=== PATIENT | female | born 1960 | race Caucasian/White ===

== ENCOUNTER 2020-09-15 21:30 | Emergency (ER) | payer BC ==
[2020-09-15 21:46] VITALS: BP 144/67; PULSE 66
[2020-09-15] MEDS ORDERED: Metoclopramide 10 MG/2 ML SDV IVPUSH ONE (21:54)
[2020-09-15] MEDS ORDERED: diphenhydrAMINE 50 MG/ML SDV IVPUSH ONE (21:55)
[2020-09-15] MEDS ORDERED: HYDROmorphone 0.5 MG/0.5 ML Syringe IVPUSH ONE (21:55)
--- NOTE | 2020-09-15 21:58 | EDM.PDOC ---
ED HPI GENERAL MEDICAL PROBLEM - General Chief Complaint: Gastrointestinal Problem Stated Complaint: unable to keep water down has stage 2 cancer Time Seen by Provider: 09/15/20 21:52 Source of Information: Reports: Patient, Family (spouse and daughter) History Limitations: Reports: No Limitations - History of Present Illness INITIAL COMMENTS - FREE TEXT/NARRATIVE: 59-year-old female presents to the ED in the accompaniment of her spouse and her daughter. 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 This was diagnosed in December 2019. Patient has been receiving immunosuppressant therapy on a monthly basis. She has been receiving dexamethasone 2 mg once daily every morning for brain swelling. She took all 3 of her normal medications this morning and threw up about 20 minutes later. She did take medicine on empty stomach. However since that time she has been in a unable to keep down any medication since. She has a significant headache which she relates is 7 8 out of 10 on the right hemicranial aspect of her head. She states she is not prone to headaches. Denies any hematemesis. Last emesis was about an hour before coming to the ED and was about 15 mils of bilious emesis. No associated fever or chills. No diarrhea. Onset: Today, Sudden Onset Date: 09/15/20 Onset Time: 08:00 Duration: Hour(s):, Constant, Intermittent Location: Reports: Head, Abdomen (Intermittent nausea vomiting intermittent nausea and vomiting of bilious material.) Quality: Reports: Ache (Persistent right hemicranial headache), Throbbing, Other Severity: Moderate (Pulsating headache.) Improves with: Reports: None ( 7-8 out of 10.) Worsens with: Reports: Other Context: Denies: Activity (Worse with movement and standing up.), Exercise, Lifting, Sick Contact, Trauma, Other Associated Symptoms: Reports: Malaise, Nausea/Vomiting, Weakness. 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: Other (see below) (Nothing will stay down.) Frontal Headache Pain Score (Numeric/FACES): 9 - Related Data Allergies Allergy/AdvReac Type Severity Reaction Status Date / Time hydrocodone Allergy Nausea Verified 09/15/20 21:44 Home Meds: Home Meds Levothyroxine Sodium [Synthroid] 100 mcg PO DAILY 06/12/14 [History] Escitalopram Oxalate 5 mg PO DAILY 09/15/20 [History] dexAMETHasone [Dexamethasone] 2 mg PO DAILY 09/15/20 [History] Past Medical History Psychiatric History: Reports: Anxiety (Taking Escitalopram for this.) Oncologic (Cancer) History: Reports: Malignant Melanoma Social & Family History - Tobacco Use Tobacco Use Status *Q: Never Tobacco User Second Hand Smoke Exposure: No - Caffeine Use Caffeine Use: Reports: None - Recreational Drug Use Recreational Drug Use: No - Living Situation & Occupation Living situation: Reports: Occupation: Employed ED ROS GENERAL - Review of Systems Review Of Systems: See Below Constitutional: Reports: Malaise, Weakness, Fatigue, Decreased Appetite, Weight Loss. Denies: Fever, Chills HEENT: Reports: Glasses Respiratory: Reports: No Symptoms Cardiovascular: Reports: No Symptoms Endocrine: Reports: Fatigue GI/Abdominal: Reports: Decreased Appetite, Nausea, Vomiting (Intractable nausea and vomiting all day today. Bilious emesis without blood.) : Reports: No Symptoms Musculoskeletal: Reports: No Symptoms Skin: Reports: No Symptoms Neurological: Reports: Headache (Bad headache today right hemicranial head. Known to have brain tumor i.e. malignant melanoma invading the parietal and temporal lobe apparently. This was diagnosed in December 2019), Difficulty Walking (Loses her balance at times.), Weakness. Denies: Confusion, Dizziness, Paresthesia, Pre-Existing Deficit, Seizure, Syncope, Tingling Psychiatric: Reports: Anxiety Hematologic/Lymphatic: Reports: No Symptoms Immunologic: Reports: No Symptoms ED EXAM, GI/ABD - Physical Exam Exam: See Below Exam Limited By: No Limitations General Appearance: Alert, WD/WN, Moderate Distress, Other (She is quite happy having her family answer questions. She appears to be having a significant headache at this time. She answers questions appropriately however and has no dysarthria. Temperature was 36.4 degrees. Heart rate 66 and sinus respiratory is 18 with O2 sats 100% on room air. BP 1 446) Eyes: Bilateral: Normal Appearance (No scleral icterus or blepharal pallor.) Throat/Mouth: Normal Inspection, Normal Lips, Normal Oropharynx, Other (Tongue is dry and coated white. No oral candidiasis.) Head: Atraumatic, Normocephalic Neck: Normal Inspection, Supple, Non-Tender, Full Range of Motion. No: Carotid Bruit, Lymphadenopathy (L), Lymphadenopathy (R) Respiratory/Chest: No Respiratory Distress, Lungs Clear, Normal Breath Sounds, No Accessory Muscle Use Cardiovascular: Normal Peripheral Pulses, Regular Rate, Rhythm, No Edema, No Gallop, No Murmur, No Rub GI/Abdominal Exam: Normal Bowel Sounds, Soft, Non-Tender, No Abnormal Bruit, No Mass Back Exam: Normal Inspection, Full Range of Motion. No: CVA Tenderness (L), CVA Tenderness (R) Extremities: Normal Inspection, Normal Range of Motion, Non-Tender, No Pedal Edema Neurological: Alert, Oriented, CN II-XII Intact, Normal Cognition Psychiatric: Flat Affect Skin Exam: Warm, Dry, Intact, Normal Color, No Rash Course - Vital Signs Last Recorded V/S: Last Vital Signs Temp 36.4 C 09/15/20 21:45 Pulse 66 09/15/20 21:45 Resp 18 09/15/20 21:45 BP 144/67 H 09/15/20 21:45 Pulse Ox 100 09/15/20 21:45 - Orders/Labs/Meds Orders: Active Orders 24 hr Category Date Time Status Head wo Cont [CT] Stat Exams 09/15/20 21:52 Taken CORONAVIRUS COVID-19 EYAD [MOLEC] Stat Lab 09/16/20 00:25 Received URINALYSIS W/MICROSCOPIC [UA W/MICROSCOPIC] [URIN] Stat Lab 09/15/20 21:56 Ordered Dextrose 5%-0.9% NaCl [Dextrose 5%-Normal Saline] 1,000 Med 09/15/20 22:00 Active ml IV ASDIRECTED Medication Orders Dextrose/Sodium Chloride (Dextrose 5%-Normal Saline) 1,000 mls @ 500 mls/hr IV ASDIRECTED LEÓN Last Admin: 09/15/20 22:11 Dose: 500 mls/hr Documented by: PAMELA Labs: Laboratory Tests 09/15/20 09/15/20 Range/Units 21:50 21:50 WBC 10.41 H (3.98-10.04) K/mm3 RBC 4.81 (3.98-5.22) M/mm3 Hgb 13.1 (11.2-15.7) gm/dl Hct 40.4 (34.1-44.9) % MCV 84.0 D (79.4-94.8) fl MCH 27.2 (25.6-32.2) pg MCHC 32.4 (32.2-35.5) g/dl RDW Std Deviation 48.6 H (36.4-46.3) fL Plt Count 350 D (182-369) K/mm3 MPV 10.3 (9.4-12.3) fl Neut % (Auto) 90.1 H (34.0-71.1) % Lymph % (Auto) 5.3 L (19.3-51.7) % Baxter % (Auto) 4.2 L (4.7-12.5) % Eos % (Auto) 0 L (0.7-5.8) Baso % (Auto) 0.1 (0.1-1.2) % Neut # (Auto) 9.38 H (1.56-6.13) K/mm3 Lymph # (Auto) 0.55 L (1.18-3.74) K/mm3 Baxter # (Auto) 0.44 H (0.24-0.36) K/mm3 Eos # (Auto) 0.00 L (0.04-0.36) K/mm3 Baso # (Auto) 0.01 (0.01-0.08) K/mm3 Manual Slide Review Abnormal smear Sodium 138 (136-145) mEq/L Potassium 3.6 (3.5-5.1) mEq/L Chloride 99 (98-107) mEq/L Carbon Dioxide 22 (21-32) mEq/L Anion Gap 20.6 H (5-15) BUN 17 (7-18) mg/dL Creatinine 0.8 (0.55-1.02) mg/dL Est Cr Clr Drug Dosing TNP Estimated GFR (MDRD) > 60 (>60) mL/min BUN/Creatinine Ratio 21.3 H (14-18) Glucose 149 H (70-99) mg/dL Calcium 9.4 (8.5-10.1) mg/dL Total Bilirubin 0.6 (0.2-1.0) mg/dL AST 13 L (15-37) U/L ALT 21 (14-59) U/L Alkaline Phosphatase 51 (46-116) U/L C-Reactive Protein 0.5 (<1.0) mg/dL Total Protein 7.3 (6.4-8.2) g/dl Albumin 3.8 (3.4-5.0) g/dl Globulin 3.5 gm/dL Albumin/Globulin Ratio 1.1 (1-2) Lipase 144 (73-393) U/L Meds: Medications Generic Name Dose Route Start Last Admin Trade Name Freq PRN Reason Stop Dose Admin Dextrose/Sodium Chloride 1,000 mls @ 500 mls/hr 09/15/20 22:00 09/15/20 22:11 Dextrose 5%-Normal Saline IV 500 mls/hr ASDIRECTED LEÓN Administration Discontinued Medications Generic Name Dose Route Start Last Admin Trade Name Freq PRN Reason Stop Dose Admin Dexamethasone 12 mg 09/15/20 23:37 09/15/20 23:44 Dexamethasone 4 Mg/Ml 5 Ml Mdv IV 09/15/20 23:38 12 mg ONETIME ONE Administration Diphenhydramine HCl 12.5 mg 09/15/20 21:55 09/15/20 22:14 Diphenhydramine 50 Mg/Ml Sdv IVPUSH 09/15/20 21:56 12.5 mg ONETIME ONE Administration Hydromorphone HCl 0.5 mg 09/15/20 21:55 09/15/20 22:15 Hydromorphone 0.5 Mg/0.5 Ml Syringe IVPUSH 09/15/20 21:56 0.5 mg ONETIME ONE Administration Metoclopramide HCl 7.5 mg 09/15/20 21:54 09/15/20 22:12 Metoclopramide 10 Mg/2 Ml Sdv IVPUSH 09/15/20 21:55 7.5 mg ONETIME ONE Administration - Radiology Interpretation Free Text/Narrative:: 59-year-old female presents to the ED with a diffuse right hemicranial headache which is unusual for her. She took her 3 medications i.e. levothyroxine Escitalopram and dexamethasone 2 mg strength this morning around 0800 hrs. and promptly vomited them up within 15 minutes. Since then she has been vomiting throughout the entire day. Headache has been slowly getting worse. She is known to have malignant melanoma tumors to the right hemibrain involving the parietal and temporal lobe according to her . She is currently receiving immunosuppressant therapy on a monthly basis. She usually does not suffer from headaches. History is concerning therefore for increased intracranial pressure or bleed into tumor causing headache and nausea and vomiting. She will have CT head performed without IV contrast. Routine labs will be performed. IV will be D5 normal saline at 500 mils an hour. She was given Reglan 7.5 mg IV with Be nadryl 12.5 mg IV to prevent any dystonic reaction from the Escitalopram. She will also be given Dilaudid 0.5 mg IV for headache relief. - Re-Assessments/Exams Free Text/Narrative Re-Assessment/Exam: 09/15/20 22:38 CT scan of the brain without contrast has been performed. There is a large hyperdense mass involving the posterior medial left parietal lobe. This is in the region of the splenium of the corpus callosum. This hyperdense mass is approximately 3.5 x 2.9 cm in the AP diameter and transversely. Cephalocaudal this mass is 3.5 cm. There is severe surrounding edema. The edema affects a large portion of the left centrum semiovale. There is a left to right midline shift approximately 7 to 8 mm. There is also a midline collection with no fluid level measuring 2.2 x 1.6 cm. This is in the region of the pineal gland. Possibility of a metastatic focus to this region cannot be excluded. The fluid level could represent a hemorrhagic process. Hyperdense 6 x 6 mm collection is seen anterior to the left parietal mass which could represent a small focal parenchymal hemorrhage. This is best seen on series 2, image 28. Chronic appearing subdural fluid collection below the craniotomy flap along the posterior parietal region on the right side measuring 7 mm in maximal thickness. This appears to be representing chronic subdural collection related to the previous surgery. There is no ventriculomegaly. There is loss of the normal convexities and sulci suggestive of intracranial hypertension. Evidence of previous right sided posterior parietal craniotomy. No sinus air-fluid levels. Visualized mastoid air cells are well aerated. White count is mildly elevated at 10.41 remembering that she has been on steroids daily 2 mg of dexamethasone. Differential shows 90.1% neutrophils. Patient is afebrile. Hemoglobin is 13.1 with hematocrit of 40.4. Platelet count 350,000. Sodium was 138 with a potassium of 3.6. Chloride 99 with a bicarb of 22. Anion gap is elevated at 20.6 suggesting volume depletion. BUN was 17 with a creatinine of 0.8 and a GFR greater than 60. BUN/creatinine ratio minimally elevated at 21.3. Glucose elevated at 149. Calcium 9.4 total bilirubin 0.6 liver function otherwise normal. C-reactive protein 0.5 total protein 7.3 with an albumin fraction of 3.8 lipase 144 09/15/20 23:43 I was able to speak with Dr. Gutierrez oncologist that looks after this patient through the 1 call nurse at [facility] in [place]. He suggests dexamethasone 12 mg IV at this time which I will order. I then spoke with Dr. Nicole on-call hospitalist and he will perform the admission to the hospital. CODE STATUS needs to be established on this lady. They indicated th at MRI identified a left brain tumor in June of this year and she did receive 5 days of high density focused radiation to the tumor at that time. So therefore the left-sided brain tumor is not new. It is unfortunately enlarging and creating a great deal of edema and mass-effect with midline shift. 09/16/20 00:36 ground ambulance is now available to transfer the patient to [facility] in [place]. CODE STATUS was discussed with the family and the patient and she prefers to remain CODE STATUS level 1. 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 Gutierrez and radiation therapy as well. Sepsis Event Note (ED) - Evaluation Sepsis Screening Result: No Definite Risk - Focused Exam Vital Signs: Vital Signs Temp Pulse Resp BP Pulse Ox 09/15/20 21:45 36.4 C 66 18 144/67 H 100 - My Orders Last 24 Hours: My Active Orders 09/15/20 21:52 Head wo Cont [CT] Stat 09/15/20 21:56 URINALYSIS W/MICROSCOPIC [UA W/MICROSCOPIC] [URIN] Stat 09/15/20 22:00 Dextrose 5%-0.9% NaCl [Dextrose 5%-Normal Saline] 1,000 ml IV ASDIRECTED 09/16/20 00:25 CORONAVIRUS COVID-19 EYAD [MOLEC] Stat - Assessment/Plan Last 24 Hours: My Active Orders 09/15/20 21:52 Head wo Cont [CT] Stat 09/15/20 21:56 URINALYSIS W/MICROSCOPIC [UA W/MICROSCOPIC] [URIN] Stat 09/15/20 22:00 Dextrose 5%-0.9% NaCl [Dextrose 5%-Normal Saline] 1,000 ml IV ASDIRECTED 09/16/20 00:25 CORONAVIRUS COVID-19 EYAD [MOLEC] Stat
[2020-09-15] MEDS ORDERED: Dextrose 5%-0.9% NaCl 1,000 ML IV SCH (22:00)
[2020-09-15] MEDS ORDERED: Dexamethasone 4 MG/ML 5 ML MDV IV ONE (23:37)
--- NOTE | 2020-09-16 10:52 | CT ---
Head CT Technique: Multiple axial sections through the brain were obtained. Intravenous contrast was not utilized. Reconstructed coronal and sagittal images were obtained. Comparison: Prior head CT study of 06/12/14 and prior MRI brain study also of 06/12/14. Findings: Hyperdense finding is identified within the posterior and medial parietal lobe which slightly extends into the splenium. Patient has a history of melanoma and this may certainly represent a melanoma metastatic lesion. This abnormality measures approximately 3.4 x 3.0 x 3.9 cm. There are areas of edema being seen around this abnormality which extends into the adjacent cortex. There is a second area of mixed low density and hyperdensity being seen within the midline which measures 2.3 cm x 2.0 cm x 1.5 cm. This could represent an additional metastatic lesion. Minimal areas of increased density noted around the main mass which could represent small areas of acute hemorrhage. Low density is noted posteriorly within the white matter. There is evidence of previous craniotomy. This is noted on the right side within the mid and posterior aspect. Small subdural collection which appears chronic and is noted in area of previous craniotomy on the right side. Visualized paranasal sinuses and mastoid sinuses show nothing acute. Impression: 1. Two areas of increased density within the left parietal region and midline within the brain. Findings are most likely due to metastatic melanoma lesions. 2. Areas of increased density within the larger mass which may represent areas of acute hemorrhage. 3. Diffuse low density edema is seen posteriorly on the right as well as superiorly on the left side. 4. Previous craniotomy on the right side with small amount of extradural fluid collection believed to be incidental. Note: These findings are an interval change from previous head CT and MRI study from 2015. Diagnostic code #9 I agree with preliminary report from [facility] finalized on 09/15/20, 10:04 PM CDT, code 1
== END 2020-09-16 00:45 ==
LOC: JD.ED 21:30
DX: C71.9 Malignant neoplasm of brain, unspecified (principal); R11.2 Nausea with vomiting, unspecified; I10 Essential (primary) hypertension; E86.9 Volume depletion, unspecified; Z88.5 Allergy status to narcotic agent
CPT/HCPCS: 36415; 70450; 80053; 83690; 85025; 86140; 87635; 96374; 96375; 99285; J1100; J1170; J1200; J2765; J7042; U0002

== ENCOUNTER 2020-11-07 11:10 | Emergency (ER) | payer BC ==
[2020-11-07 11:25] VITALS: BP 125/72; PULSE 66
[2020-11-07] MEDS ORDERED: Sodium Chloride 0.9% 10 ML Syringe FLUSH PRN (11:38)
[2020-11-07] MEDS ORDERED: Sodium Chloride 0.9% 1,000 ML IV ONE (11:38)
[2020-11-07] MEDS ORDERED: Ondansetron 4 MG/2 ML SDV IVPUSH ONE (11:38)
--- NOTE | 2020-11-07 11:44 | EDM.PDOC ---
ED HPI GENERAL MEDICAL PROBLEM - General Chief Complaint: Gastrointestinal Problem Stated Complaint: VOMITING Time Seen by Provider: 11/07/20 11:31 Source of Information: Reports: Patient, Old Records, RN Notes Reviewed History Limitations: Reports: No Limitations - History of Present Illness INITIAL COMMENTS - FREE TEXT/NARRATIVE: Patient is a 59-year-old female brought into the ER by her for the evaluation of her nausea and vomiting. Patient does have metastatic brain cancer, and is undergoing chemotherapy. Apparently this was a melanoma that is metastasized to the left side of her brain. She had some brain swelling after the radiation, and she is now taking prednisone, they state that she had an appointment with her radiation oncologist Dr. Sanabria recently, and notes that they have to the dose of prednisone that she was taking prior. Patient woke up this morning, she developed nausea and vomiting so much that she could not keep any sort of food/fluids/medications down this morning. Patient notes that prior to this, she felt fairly good for her health. Patient does have a splint to her left arm, due to a prior break that is healing. Patient answers questions appropriately when inquired. States that her last normal food or fluid intake was last night. Patient denies any other sick-like symptoms, fever/chills, cough/shortness of breath, nausea/vomiting/diarrhea. Patient further denies having any headache at that time. - Related Data Allergies Allergy/AdvReac Type Severity Reaction Status Date / Time hydrocodone AdvReac Severe Nausea Verified 11/07/20 11:25 Home Meds: Home Meds Levothyroxine Sodium [Synthroid] 100 mcg PO DAILY 06/12/14 [History] Escitalopram Oxalate 20 mg PO DAILY 09/15/20 [History] dexAMETHasone [Dexamethasone] 4 mg PO DAILY 09/15/20 [History] Promethazine [Phenergan] 25 mg PO Q6H PRN #20 tab 11/07/20 [Rx] levETIRAcetam [Keppra] 500 mg PO DAILY 11/07/20 [History] Past Medical History Musculoskeletal History: Reports: Fracture Psychiatric History: Reports: Anxiety, Depression Endocrine/Metabolic History: Reports: Hypothyroidism, Other (See Below) Other Endocrine/Metabolic History: Hashimotos Oncologic (Cancer) History: Reports: Brain, Malignant Melanoma - Past Surgical History Neurological Surgical History: Reports: Other (See Below) Other Neurological Surgeries/Procedures: resection of brain tumor Social & Family History - Tobacco Use Tobacco Use Status *Q: Never Tobacco User - Caffeine Use Caffeine Use: Reports: None - Recreational Drug Use Recreational Drug Use: No - Living Situation & Occupation Living situation: Reports: Occupation: Employed ED ROS GENERAL - Review of Systems Review Of Systems: Comprehensive ROS is negative, except as noted in HPI. ED EXAM, GI/ABD - Physical Exam Exam: See Below Exam Limited By: No Limitations General Appearance: Alert, WD/WN, No Apparent Distress Eyes: Bilateral: Normal Appearance, EOMI Throat/Mouth: Normal Inspection, Normal Voice Head: Atraumatic, Normocephalic Respiratory/Chest: No Respiratory Distress, Lungs Clear, Normal Breath Sounds, No Accessory Muscle Use, Chest Non-Tender Cardiovascular: Normal Peripheral Pulses, Regular Rate, Rhythm, No Edema GI/Abdominal Exam: Normal Bowel Sounds, Soft, Non-Tender, No Distention, No Mass Extremities: Normal Inspection, Normal Capillary Refill Neurological: Alert, Oriented, Normal Cognition, No Motor/Sensory Deficits Psychiatric: Normal Affect, Normal Mood Skin Exam: Warm, Dry, Intact, No Rash, Pallor (generalized) Course - Vital Signs Last Recorded V/S: Last Vital Signs Temp 97.3 F 11/07/20 11:21 Pulse 66 11/07/20 11:21 Resp 16 11/07/20 11:21 BP 125/72 11/07/20 11:21 Pulse Ox 97 11/07/20 11:21 - Orders/Labs/Meds Orders: Active Orders 24 hr Category Date Time Status Communication Order [RC] STAT Care 11/07/20 13:09 Ordered Peripheral IV Care [RC] . DIRECTED Care 11/07/20 11:39 Ordered Sodium Chloride 0.9% [Saline Flush] Med 11/07/20 11:38 Ordered 10 ml FLUSH ASDIRECTED PRN Peripheral IV Insertion Adult [OM.PC] Routine Oth 11/07/20 11:38 Ordered Medication Orders Sodium Chloride (Sodium Chloride 0.9% 10 Ml Syringe) 10 ml FLUSH ASDIRECTED PRN PRN Reason: Keep Vein Open Last Admin: 11/07/20 12:30 Dose: 10 ml Documented by: Labs: Laboratory Tests 11/07/20 11/07/20 Range/Units 11:20 11:20 WBC 13.70 H (3.98-10.04) K/mm3 RBC 4.29 (3.98-5.22) M/mm3 Hgb 12.8 (11.2-15.7) gm/dl Hct 37.7 (34.1-44.9) % MCV 87.9 D (79.4-94.8) fl MCH 29.8 (25.6-32.2) pg MCHC 34.0 (32.2-35.5) g/dl RDW Std Deviation 54.2 H (36.4-46.3) fL Plt Count 287 (182-369) K/mm3 MPV 9.5 (9.4-12.3) fl Neut % (Auto) 87.6 H (34.0-71.1) % Lymph % (Auto) 3.1 L (19.3-51.7) % [place] % (Auto) 4.2 L (4.7-12.5) % Eos % (Auto) 0.1 L (0.7-5.8) Baso % (Auto) 0.1 (0.1-1.2) % Neut # (Auto) 12.00 H (1.56-6.13) K/mm3 Lymph # (Auto) 0.42 L (1.18-3.74) K/mm3 [place] # (Auto) 0.58 H (0.24-0.36) K/mm3 Eos # (Auto) 0.01 L (0.04-0.36) K/mm3 Baso # (Auto) 0.02 (0.01-0.08) K/mm3 Manual Slide Review Abnormal smear Sodium 137 (136-145) mEq/L Potassium 3.7 (3.5-5.1) mEq/L Chloride 99 (98-107) mEq/L Carbon Dioxide 28 (21-32) mEq/L Anion Gap 13.7 (5-15) BUN 16 (7-18) mg/dL Creatinine 0.6 (0.55-1.02) mg/dL Est Cr Clr Drug Dosing 85.68 mL/min Estimated GFR (MDRD) > 60 (>60) mL/min BUN/Creatinine Ratio 26.7 H (14-18) Glucose 129 H (70-99) mg/dL Calcium 8.3 L (8.5-10.1) mg/dL Total Bilirubin 0.4 (0.2-1.0) mg/dL AST 23 (15-37) U/L ALT 39 (14-59) U/L Alkaline Phosphatase 41 L (46-116) U/L Total Protein 6.1 L (6.4-8.2) g/dl Albumin 2.7 L (3.4-5.0) g/dl Globulin 3.4 gm/dL Albumin/Globulin Ratio 0.8 L (1-2) Meds: Medications Generic Name Dose Route Start Last Admin Trade Name Freq PRN Reason Stop Dose Admin Sodium Chloride 10 ml 11/07/20 11:38 11/07/20 12:30 Sodium Chloride 0.9% 10 Ml Syringe FLUSH 10 ml ASDIRECTED PRN Administration Keep Vein Open Discontinued Medications Generic Name Dose Route Start Last Admin Trade Name Freq PRN Reason Stop Dose Admin Dexamethasone 4 mg 11/07/20 12:51 11/07/20 12:59 Dexamethasone 10 Mg/Ml Sdv IVPUSH 11/07/20 12:52 4 mg ONETIME ONE Administration Sodium Chloride 1,000 mls @ 999 mls/hr 11/07/20 11:38 11/07/20 12:22 Normal Saline IV 11/07/20 12:38 999 mls/hr ONETIME ONE Administration Ondansetron HCl 4 mg 11/07/20 11:38 11/07/20 12:22 Ondansetron 4 Mg/2 Ml Sdv IVPUSH 11/07/20 11:39 4 mg ONETIME ONE Administration - Re-Assessments/Exams Free Text/Narrative Re-Assessment/Exam: 11/07/20 11:43 Patient presents to the ER for evaluation of her nausea and vomiting, she is denying pain anywhere else, so we will get some basic labs, give her some IV fluids and nausea medications to help relieve her nausea at this time with some nausea medications have been given time to work, we will go ahead and give her an oral fluid challenge to see if she can keep fluids down. 11/07/20 12:43 Laboratory evaluation is fairly unremarkable, white count is slightly elevated at 13.7, but the patient is on steroid therapy for her brain swelling. Metabolic panel is essentially unremarkable, patient will be reevaluated at bedside, we will try to get her home with some antinausea medications, to help relieve ER visits, and also chemo induced nausea. 11/07/20 12:50 The patient was reassessed at bedside, states that her nausea is feeling better, the is concerned because she did not get her steroid this morning as she did vomit this back up. It does appear that she has 4 mg dose of dexamethasone on a daily basis that she takes. So we will go ahead and do 4 mg dexamethasone IV, to make sure that she gets her medication, then we will do a oral fluid challenge to see if she can keep food and fluids down. If the states she does have some sort of nausea medications at home, and the nurse did look up her med list and it seems that this might be Zofran, she does have prescription for Escitalopram as well, accommodation these medications on concomitant can cause QT prolongation, I will send them a prescription for Phenergan, to see if this can help control some of the nausea as well. 11/07/20 13:37 Patient was able to keep some crackers and fluids down. We will go ahead and discharge patient home with general recommendations. Departure - Departure Time of Disposition: 13:38 Disposition: Home, Self-Care 01 Condition: Good Clinical Impression: Nausea and vomiting Qualifiers: Vomiting type: unspecified Vomiting Intractability: non-intractable Qualified Code(s): R11.2 - Nausea with vomiting, unspecified - Discharge Information *PRESCRIPTION DRUG MONITORING PROGRAM REVIEWED*: No *COPY OF PRESCRIPTION DRUG MONITORING REPORT IN PATIENT TRUDY: No Prescriptions: Promethazine [Phenergan] 25 mg PO Q6H PRN #20 tab PRN Reason: Nausea Instructions: Nausea and Vomiting, Adult, [id number] Referrals: Adam Colón MD [Primary Care Provider] - Forms: ED Department Discharge Additional Instructions: You were evaluated in the ER today for your nausea and vomiting. Laboratory evaluation was essentially unremarkable for any sign of bacterial infection, when you are on steroid therapy your white cell count can be elevated, as was yours, since you are having no discrete sick symptoms like fevers or chills, the elevated white count is likely due to the steroid therapy you are taking. You were given some IV medications to include IV fluids and nausea meds, this seemed to help relieve most of your nausea. You have been given a prescription for Phenergan, you will need to take 1 tablet every 6 hours as needed for ongoing pain management. Highly and strongly recommend that you take this at least on a morning time basis, 20 to 30 minutes prior to taking your other pills to make sure that you can keep your pills down. This medication was electronically sent to the [email or web address] located near [facility]. Follow-up with your health care providers that you are next scheduled visit, or call their office to see if they would like to schedule you for a visit sooner due to your recent ER visit. Please return to the ER at any time if symptoms change or worsen. Sepsis Event Note (ED) - Evaluation Sepsis Screening Result: No Definite Risk - Focused Exam Vital Signs: Vital Signs Temp Pulse Resp BP Pulse Ox 11/07/20 11:21 97.3 F 66 16 125/72 97 - My Orders Last 24 Hours: My Active Orders 11/07/20 11:38 Sodium Chloride 0.9% [Saline Flush] 10 ml FLUSH ASDIRECTED PRN Peripheral IV Insertion Adult [OM.PC] Routine 11/07/20 11:39 Peripheral IV Care [RC] . DIRECTED 11/07/20 13:09 Communication Order [RC] STAT - Assessment/Plan Last 24 Hours: My Active Orders 11/07/20 11:38 Sodium Chloride 0.9% [Saline Flush] 10 ml FLUSH ASDIRECTED PRN Peripheral IV Insertion Adult [OM.PC] Routine 11/07/20 11:39 Peripheral IV Care [RC] . DIRECTED 11/07/20 13:09 Communication Order [RC] STAT
[2020-11-07] MEDS ORDERED: Dexamethasone 10 MG/ML SDV IVPUSH ONE (12:51)
== END 2020-11-07 14:30 | disposition home or self-care (01) ==
LOC: JD.ED 11:10
DX: R11.2 Nausea with vomiting, unspecified (principal); E03.9 Hypothyroidism, unspecified; Z88.5 Allergy status to narcotic agent; Z79.899 Other long term (current) drug therapy
CPT/HCPCS: 36415; 80053; 85025; 96374; 96375; 99284; J1100; J2405; J7030; 99283

== ENCOUNTER 2020-12-24 20:42 | Inpatient (IN) | payer BC ==
[2020-12-24] MEDS ORDERED: diphenhydrAMINE 50 MG/ML SDV IVPUSH ONE (20:45)
[2020-12-24] MEDS ORDERED: Metoclopramide 10 MG/2 ML SDV IVPUSH ONE (20:45)
--- NOTE | 2020-12-24 20:51 | EDM.PDOC ---
ED HPI GENERAL MEDICAL PROBLEM - General Chief Complaint: Neuro Symptoms/Deficits Stated Complaint: BROUGHT IN BY DR CHAKRABORTY Time Seen by Provider: 12/24/20 20:44 Source of Information: Reports: Family (spouse), Other (brother ) History Limitations: Reports: No Limitations - History of Present Illness INITIAL COMMENTS - FREE TEXT/NARRATIVE: 60-year-old female presents to the ED in the accompaniment of her and brother. Her brother is Dr. Chakraborty who works here at our hospital. 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 She was treated with primary neuro surgery to debulk the tumor and subsequently has been receiving radiation treatments both there and more recently in [facility]. She has recently been weaned down from steroids presumably dexamethasone from 2 tablets daily to 1 tablet a daily over the last 2 weeks. This morning she could dress herself and talk and walk fairly normally. She also did eat dinner. She did not eat any supper. She had spontaneous emesis approximately an hour and a half ago containing food eaten at dinnertime and bile salts. Since then she is not been able to speak or walk on her own. She required assistance to the wheelchair and into the emergency room. She required assistance onto the bed by 2 nursing staff and myself. She appears to be complaining or least holding the right side of her head as if in pain. A list of her medications are not yet known. Once she was settled ,the nurses were able to coax he r into speaking a wee bit. She was disoriented to time and place but knew her name and date of . Onset: Today, Sudden Onset Date: 12/24/20 Onset Time: 19:15 Duration: Minutes: (Tenuous onset of vomiting and since has been nonverbal. Not able to walk on her own volition as she had earlier today.) Location: Reports: Head (In the right side of her head in the temporal area.) Severity: Moderate Context: Reports: Other (And is known to have malignant melanoma affecting the brain more recently identified to have 10 new lesions despite of recent radiation indicating rapid spread of the disease.). Denies: Activity, Exercise, Lifting, Sick Contact, Trauma Associated Symptoms: Reports: Confusion, Headaches ( relates she complains of occasional headaches.), Malaise, Nausea/Vomiting (Nausea and vomiting within the hour prior to come to the ED.), Weakness (Unable to walk on her ablation which she was doing this afternoon and this morning). Denies: Chest Pain, Cough, cough w sputum Treatments STONE BELT SANDER: Reports: Other (see below) (None.) - Related Data Allergies Allergy/AdvReac Type Severity Reaction Status Date / Time Utjuwtl-Ibm-Gnf Reductase Allergy Unknown Other Verified 12/25/20 12:11 Inhibitor hydrocodone AdvReac Severe Nausea Verified 12/24/20 20:48 Home Meds: Home Meds Levothyroxine Sodium [Synthroid] 100 mcg PO DAILY 06/12/14 [History] dexAMETHasone [Dexamethasone] 2 mg PO DAILY 09/15/20 [History] Promethazine [Phenergan] 25 mg PO Q6H PRN #20 tab 11/07/20 [Rx] levETIRAcetam [Keppra] 500 mg PO BID 11/07/20 [History] Cefdinir [Omnicef] 300 mg PO BID #16 cap 12/25/20 [Rx] Desvenlafaxine [Desvenlafaxine ER] 50 mg PO DAILY 12/25/20 [History] lamoTRIgine [Lamotrigine] 25 mg PO BID 12/25/20 [History] lamoTRIgine [Lamotrigine] 50 mg PO BID 12/25/20 [History] Past Medical History Musculoskeletal History: Reports: Fracture Neurological History: Reports: Seizure (Has experienced seizures after debulking of malignant melanoma tumor from her brain right parietal cortex in December 2019. patient takes Keppra 500 mg by mouth daily) Psychiatric History: Reports: Anxiety, Depression Endocrine/Metabolic History: Reports: Hypothyroidism, Other (See Below) Other Endocrine/Metabolic History: Hashimotos Oncologic (Cancer) History: Reports: Brain, Malignant Melanoma - Past Surgical History Neurological Surgical History: Reports: Other (See Below) Other Neurological Surgeries/Procedures: resection of brain tumor Social & Family History - Caffeine Use Caffeine Use: Reports: None - Living Situation & Occupation Living situation: Reports: Occupation: Employed ED ROS GENERAL - Review of Systems Review Of Systems: See Below Constitutional: Reports: Fatigue. Denies: Fever, Chills, Decreased Appetite Respiratory: Reports: No Symptoms Cardiovascular: Reports: No Symptoms Endocrine: Reports: Fatigue GI/Abdominal: Reports: Constipation : Reports: No Symptoms Musculoskeletal: Reports: No Symptoms Skin: Reports: No Symptoms Neurological: Reports: Dizziness, Headache, Difficulty Walking (Occasionally.). Denies: Confusion, Numbness, Syncope, Tingling, Weakness Psychiatric: Reports: Depression Hematologic/Lymphatic: Reports: No Symptoms Immunologic: Reports: No Symptoms ED EXAM, NEURO - Physical Exam Exam: See Below Exam Limited By: Physical Impairment (Appears confused. Nurses were able to coax a few words out of her and she did make sense but she was disoriented to time and place.) General Appearance: Moderate Distress, Other (Temperature was 38.2 on initial evaluation. Heart rate was 93 and sinus respiratory is 18 O2 sats of 97%. BP 139/90.) Eye Exam: Bilateral Eye: Normal Inspection, PERRL Nose: Normal Inspection Throat/Mouth: Normal Inspection, Normal Lips, Normal Teeth, Normal Oropharynx Head Exam: Atraumatic, Normocephalic Neck: Normal Inspection, Supple. No: Carotid Bruit, Lymphadenopathy (L), Lymphadenopathy (R) Respiratory/Chest: No Respiratory Distress, Lungs Clear, Normal Breath Sounds, No Accessory Muscle Use Cardiovascular: Normal Peripheral Pulses, Regular Rate, Rhythm, No Edema, No Gallop, No Murmur, No Rub GI/Abdominal: Normal Bowel Sounds, Soft, Non-Tender, No Organomegaly, No Mass, Pelvis Stable Neurological: No: Alert, Normal Mood/Affect, Normal Dorsiflexion, CN II-XII Intact, Normal Gait, Normal Reflexes, Oriented x 3 DTR: 0: Bicep (R), Patella (R), Patella (L), Achilles (R), Achilles (L), 1+: Bicep (L) Back Exam: Normal Inspection, Full Range of Motion, Other (Required help sitting up.). No: CVA Tenderness (L), CVA Tenderness (R) Extremities: Other (Arthritic changes both knees. They are not warm to palpation however.). No: Pedal Edema Psychiatric: Other (Able to assess.) Skin Exam: Warm, Dry, Intact, Normal Color, No Rash #1 Interpretation EKG Date: 12/24/20 Time: 21:00 Rhythm: NSR Rate (Beats/Min): 89 [place]: Normal P-Wave: Enlarged (Left atrial hypertrophy pattern) QRS: Other (Decreased voltage limb leads initial poor R wave progression may be due to lead placement) ST-T: Other (T wave flattening aVL nonspecific finding) QT: Normal EKG Interpretation Comments: Borderline ECG Course - Vital Signs Last Recorded V/S: Last Vital Signs Temp 36.9 C 12/27/20 03:35 Pulse 66 12/27/20 03:35 Resp 18 12/27/20 03:35 BP 118/71 12/27/20 03:35 Pulse Ox 98 12/27/20 03:35 - Orders/Labs/Meds Orders: Medication Orders Acetaminophen (Acetaminophen 325 Mg Tab) 650 mg PO Q4H PRN PRN Reason: Pain (Mild 1-3)/fever Last Admin: 12/27/20 03:37 Dose: 650 mg Documented by: NANI Acetaminophen (Acetaminophen 650 Mg Supp) 650 mg RECTAL Q4H PRN PRN Reason: Pain (mild 1-3) Albuterol/Ipratropium (Albuterol/Ipratropium 3.0-0.5 Mg/3 Ml Neb Soln) 3 ml NEB QIDRT PRN PRN Reason: Shortness Of Breath/wheezing Dexamethasone (Dexamethasone 4 Mg Tab) 6 mg PO DAILY [facility] Last Admin: 12/26/20 08:03 Dose: 6 mg Documented by: KARLA Piperacillin Sod/Tazobactam (Sod 4.5 gm/ Sodium Chloride) 100 mls @ 25 mls/hr IV Q8H [facility] Last Admin: 12/27/20 03:25 Dose: 25 mls/hr Documented by: Infusion: 12/26/20 21:11 Dose: 25 mls/hr Documented by: Admin: 12/26/20 17:11 Dose: 25 mls/hr Documented by: Infusion: 12/26/20 14:07 Dose: 25 mls/hr Documented by: Admin: 12/26/20 10:07 Dose: 25 mls/hr Documented by: Infusion: 12/26/20 05:43 Dose: 25 mls/hr Documented by: Admin: 12/26/20 01:43 Dose: 25 mls/hr Documented by: Infusion: 12/25/20 21:37 Dose: 25 mls/hr Documented by: Admin: 12/25/20 17:37 Dose: 25 mls/hr Documented by: TIFFANIE Lamotrigine (Lamotrigine 25 Mg Tab.Chew) 50 mg PO BID [facility] Last Admin: 12/26/20 21:04 Dose: 50 mg Documented by: Admin: 12/26/20 08:03 Dose: 50 mg Documented by: KARLA Levetiracetam (Levetiracetam 500 Mg Tab) 500 mg PO BID [facility] Last Admin: 12/26/20 21:04 Dose: 500 mg Documented by: Admin: 12/26/20 08:03 Dose: 500 mg Documented by: Admin: 12/25/20 20:45 Dose: Not Given Documented by: NANI Levothyroxine Sodium (Levothyroxine 100 Mcg Tab) 100 mcg PO DAILY@0700 [facility] Last Admin: 12/27/20 06:57 Dose: Not Given Documented by: Admin: 12/26/20 06:16 Dose: 100 mcg Documented by: NANI Lorazepam (Lorazepam 2 Mg/Ml Sdv) 0.5 mg IVPUSH Q4H PRN PRN Reason: Anxiety Lorazepam (Lorazepam 2 Mg/Ml Sdv) 2 mg IVPUSH Q4H PRN PRN Reason: Seizures Desvenlafaxine Er 50 Mg Tab.Er.24h Ptom 50 mg PO DAILY [facility] Last Admin: 12/26/20 08:07 Dose: 50 mg Documented by: KARLA Ondansetron HCl (Ondansetron 4 Mg/2 Ml Sdv) 4 mg IV Q6H PRN PRN Reason: Nausea/Vomiting 60-year-old female presents to the ED in the company of her brother and spouse. She has a history of malignant melanoma of the brain with recent imaging identifying to 10 other smaller lesions in the brain suggesting advanced metastatic spread in spite of debulking the tumor over a year ago in [facility] and treating with radiation both in [place] and in [place]. She has been on dexamethasone tablets twice daily presumably 4 mg twice daily and been slowly weaned to 1 tablet daily. She was fine this morning with ability to walk talk and dress herself. She ate breakfast and dinner but did not eat supper. She had spontaneous vomiting about an hour prior to coming into the ED with difficulty walking and talking. Not able to perform commands of a neuro exam. Pupils were equal and responsive to light and accommodation with no gaze palsy. She was in sinus rhythm with stable vital signs but she does feel warm to palpation. She is tachycardic and tachypneic and therefore is a sepsis risk. Concern is for spontaneous hemorrhage into tumor versus radiation induced necrosis of tumor. T of the head will be done immediately. Routine labs including blood cultures x2 will be obtained. Labs: Laboratory Tests 12/24/20 12/24/20 12/24/20 Range/Units 21:20 21:20 21:20 WBC 10.26 H (3.98-10.04) K/mm3 RBC 3.76 L (3.98-5.22) M/mm3 Hgb 11.4 (11.2-15.7) gm/dl Hct 35.7 (34.1-44.9) % MCV 94.9 H D (79.4-94.8) fl MCH 30.3 (25.6-32.2) pg MCHC 31.9 L (32.2-35.5) g/dl RDW Std Deviation 55.9 H (36.4-46.3) fL Plt Count 273 (182-369) K/mm3 MPV 9.5 (9.4-12.3) fl Neut % (Auto) 80.7 H (34.0-71.1) % Lymph % (Auto) 4.5 L (19.3-51.7) % [place] % (Auto) 10.9 (4.7-12.5) % Eos % (Auto) 0.1 L (0.7-5.8) Baso % (Auto) 0.2 (0.1-1.2) % Neut # (Auto) 8.28 H (1.56-6.13) K/mm3 Lymph # (Auto) 0.46 L (1.18-3.74) K/mm3 [place] # (Auto) 1.12 H (0.24-0.36) K/mm3 Eos # (Auto) 0.01 L (0.04-0.36) K/mm3 Baso # (Auto) 0.02 (0.01-0.08) K/mm3 Manual Slide Review Abnormal smear PT 10.7 (9.7-12.0) SECONDS INR 1.00 APTT 23.1 (21.7-31.4) SECONDS Sodium 136 (136-145) mEq/L Potassium 3.7 (3.5-5.1) mEq/L Chloride 98 (98-107) mEq/L Carbon Dioxide 28 (21-32) mEq/L Anion Gap 13.7 (5-15) BUN 17 (7-18) mg/dL Creatinine 0.6 (0.55-1.02) mg/dL Est Cr Clr Drug Dosing 90.95 mL/min Estimated GFR (MDRD) > 60 (>60) mL/min BUN/Creatinine Ratio 28.3 H (14-18) Glucose 114 H (70-99) mg/dL POC Glucose (70-99) mg/dL Lactic Acid (0.4-2.0) mmol/L Calcium 8.2 L (8.5-10.1) mg/dL Magnesium 2.1 (1.8-2.4) mg/dL Total Bilirubin 0.8 (0.2-1.0) mg/dL GGT (5-55) U/L AST 211 H (15-37) U/L ALT 430 H (14-59) U/L Alkaline Phosphatase 495 H (46-116) U/L C-Reactive Protein 8.3 H* (<1.0) mg/dL NT-Pro-B Natriuret Pep (0-125) pg/mL Total Protein 6.3 L (6.4-8.2) g/dl Albumin 2.9 L (3.4-5.0) g/dl Globulin 3.4 gm/dL Albumin/Globulin Ratio 0.9 L (1-2) Lipase (73-393) U/L Procalcitonin ng/mL TSH 3rd Generation (0.358-3.74) uIU/mL Urine Color (Yellow) Urine Appearance (Clear) Urine pH (5.0-8.0) Ur Specific [place] (1.005-1.030) Urine Protein (Negative) Urine Glucose (UA) (Negative) Urine Ketones (Negative) Urine Occult Blood (Negative) Urine Nitrite (Negative) Urine Bilirubin (Negative) Urine Urobilinogen (0.2-1.0) Ur Leukocyte Esterase (Negative) Urine RBC (0-5) /hpf Urine WBC (0-5) /hpf Ur Squamous Epith Cells (0-5) /hpf Urine Bacteria (FEW) /hpf Urine Mucus (FEW) /hpf SARS-CoV-2 RNA (EYAD) (NEGATIVE) 12/24/20 12/24/20 12/24/20 Range/Units 21:20 21:20 21:20 WBC (3.98-10.04) K/mm3 RBC (3.98-5.22) M/mm3 Hgb (11.2-15.7) gm/dl Hct (34.1-44.9) % MCV (79.4-94.8) fl MCH (25.6-32.2) pg MCHC (32.2-35.5) g/dl RDW Std Deviation (36.4-46.3) fL Plt Count (182-369) K/mm3 MPV (9.4-12.3) fl Neut % (Auto) (34.0-71.1) % Lymph % (Auto) (19.3-51.7) % [place] % (Auto) (4.7-12.5) % Eos % (Auto) (0.7-5.8) Baso % (Auto) (0.1-1.2) % Neut # (Auto) (1.56-6.13) K/mm3 Lymph # (Auto) (1.18-3.74) K/mm3 [place] # (Auto) (0.24-0.36) K/mm3 Eos # (Auto) (0.04-0.36) K/mm3 Baso # (Auto) (0.01-0.08) K/mm3 Manual Slide Review PT (9.7-12.0) SECONDS INR APTT (21.7-31.4) SECONDS Sodium (136-145) mEq/L Potassium (3.5-5.1) mEq/L Chloride (98-107) mEq/L Carbon Dioxide (21-32) mEq/L Anion Gap (5-15) BUN (7-18) mg/dL Creatinine (0.55-1.02) mg/dL Est Cr Clr Drug Dosing mL/min Estimated GFR (MDRD) (>60) mL/min BUN/Creatinine Ratio (14-18) Glucose (70-99) mg/dL POC Glucose (70-99) mg/dL Lactic Acid 1.7 (0.4-2.0) mmol/L Calcium (8.5-10.1) mg/dL Magnesium (1.8-2.4) mg/dL Total Bilirubin (0.2-1.0) mg/dL GGT 1096 H (5-55) U/L AST (15-37) U/L ALT (14-59) U/L Alkaline Phosphatase (46-116) U/L C-Reactive Protein (<1.0) mg/dL NT-Pro-B Natriuret Pep 257 H (0-125) pg/mL Total Protein (6.4-8.2) g/dl Albumin (3.4-5.0) g/dl Globulin gm/dL Albumin/Globulin Ratio (1-2) Lipase (73-393) U/L Procalcitonin ng/mL TSH 3rd Generation (0.358-3.74) uIU/mL Urine Color (Yellow) Urine Appearance (Clear) Urine pH (5.0-8.0) Ur Specific [place] (1.005-1.030) Urine Protein (Negative) Urine Glucose (UA) (Negative) Urine Ketones (Negative) Urine Occult Blood (Negative) Urine Nitrite (Negative) Urine Bilirubin (Negative) Urine Urobilinogen (0.2-1.0) Ur Leukocyte Esterase (Negative) Urine RBC (0-5) /hpf Urine WBC (0-5) /hpf Ur Squamous Epith Cells (0-5) /hpf Urine Bacteria (FEW) /hpf Urine Mucus (FEW) /hpf SARS-CoV-2 RNA (EYAD) (NEGATIVE) 12/24/20 12/24/20 12/24/20 Range/Units 21:20 21:20 21:20 WBC (3.98-10.04) K/mm3 RBC (3.98-5.22) M/mm3 Hgb (11.2-15.7) gm/dl Hct (34.1-44.9) % MCV (79.4-94.8) fl MCH (25.6-32.2) pg MCHC (32.2-35.5) g/dl RDW Std Deviation (36.4-46.3) fL Plt Count (182-369) K/mm3 MPV (9.4-12.3) fl Neut % (Auto) (34.0-71.1) % Lymph % (Auto) (19.3-51.7) % [place] % (Auto) (4.7-12.5) % Eos % (Auto) (0.7-5.8) Baso % (Auto) (0.1-1.2) % Neut # (Auto) (1.56-6.13) K/mm3 Lymph # (Auto) (1.18-3.74) K/mm3 [place] # (Auto) (0.24-0.36) K/mm3 Eos # (Auto) (0.04-0.36) K/mm3 Baso # (Auto) (0.01-0.08) K/mm3 Manual Slide Review PT (9.7-12.0) SECONDS INR APTT (21.7-31.4) SECONDS Sodium (136-145) mEq/L Potassium (3.5-5.1) mEq/L Chloride (98-107) mEq/L Carbon Dioxide (21-32) mEq/L Anion Gap (5-15) BUN (7-18) mg/dL Creatinine (0.55-1.02) mg/dL Est Cr Clr Drug Dosing mL/min Estimated GFR (MDRD) (>60) mL/min BUN/Creatinine Ratio (14-18) Glucose (70-99) mg/dL POC Glucose (70-99) mg/dL Lactic Acid (0.4-2.0) mmol/L Calcium (8.5-10.1) mg/dL Magnesium (1.8-2.4) mg/dL Total Bilirubin (0.2-1.0) mg/dL GGT (5-55) U/L AST (15-37) U/L ALT (14-59) U/L Alkaline Phosphatase (46-116) U/L C-Reactive Protein (<1.0) mg/dL NT-Pro-B Natriuret Pep (0-125) pg/mL Total Protein (6.4-8.2) g/dl Albumin (3.4-5.0) g/dl Globulin gm/dL Albumin/Globulin Ratio (1-2) Lipase 96 (73-393) U/L Procalcitonin 0.48 H ng/mL TSH 3rd Generation 2.701 (0.358-3.74) uIU/mL Urine Color (Yellow) Urine Appearance (Clear) Urine pH (5.0-8.0) Ur Specific [place] (1.005-1.030) Urine Protein (Negative) Urine Glucose (UA) (Negative) Urine Ketones (Negative) Urine Occult Blood (Negative) Urine Nitrite (Negative) Urine Bilirubin (Negative) Urine Urobilinogen (0.2-1.0) Ur Leukocyte Esterase (Negative) Urine RBC (0-5) /hpf Urine WBC (0-5) /hpf Ur Squamous Epith Cells (0-5) /hpf Urine Bacteria (FEW) /hpf Urine Mucus (FEW) /hpf SARS-CoV-2 RNA (EYAD) (NEGATIVE) 12/24/20 12/25/20 12/25/20 Range/Units 22:30 00:02 04:48 WBC (3.98-10.04) K/mm3 RBC (3.98-5.22) M/mm3 Hgb (11.2-15.7) gm/dl Hct (34.1-44.9) % MCV (79.4-94.8) fl MCH (25.6-32.2) pg MCHC (32.2-35.5) g/dl RDW Std Deviation (36.4-46.3) fL Plt Count (182-369) K/mm3 MPV (9.4-12.3) fl Neut % (Auto) (34.0-71.1) % Lymph % (Auto) (19.3-51.7) % [place] % (Auto) (4.7-12.5) % Eos % (Auto) (0.7-5.8) Baso % (Auto) (0.1-1.2) % Neut # (Auto) (1.56-6.13) K/mm3 Lymph # (Auto) (1.18-3.74) K/mm3 [place] # (Auto) (0.24-0.36) K/mm3 Eos # (Auto) (0.04-0.36) K/mm3 Baso # (Auto) (0.01-0.08) K/mm3 Manual Slide Review PT (9.7-12.0) SECONDS INR APTT (21.7-31.4) SECONDS Sodium (136-145) mEq/L Potassium (3.5-5.1) mEq/L Chloride (98-107) mEq/L Carbon Dioxide (21-32) mEq/L Anion Gap (5-15) BUN (7-18) mg/dL Creatinine (0.55-1.02) mg/dL Est Cr Clr Drug Dosing mL/min Estimated GFR (MDRD) (>60) mL/min BUN/Creatinine Ratio (14-18) Glucose (70-99) mg/dL POC Glucose 167 H (70-99) mg/dL Lactic Acid (0.4-2.0) mmol/L Calcium (8.5-10.1) mg/dL Magnesium (1.8-2.4) mg/dL Total Bilirubin (0.2-1.0) mg/dL GGT (5-55) U/L AST (15-37) U/L ALT (14-59) U/L Alkaline Phosphatase (46-116) U/L C-Reactive Protein (<1.0) mg/dL NT-Pro-B Natriuret Pep (0-125) pg/mL Total Protein (6.4-8.2) g/dl Albumin (3.4-5.0) g/dl Globulin gm/dL Albumin/Globulin Ratio (1-2) Lipase (73-393) U/L Procalcitonin ng/mL TSH 3rd Generation (0.358-3.74) uIU/mL Urine Color Yellow (Yellow) Urine Appearance Clear (Clear) Urine pH 7.5 (5.0-8.0) Ur Specific [place] 1.020 (1.005-1.030) Urine Protein 1+ H (Negative) Urine Glucose (UA) Negative (Negative) Urine Ketones Negative (Negative) Urine Occult Blood Negative (Negative) Urine Nitrite Negative (Negative) Urine Bilirubin Negative (Negative) Urine Urobilinogen 1.0 (0.2-1.0) Ur Leukocyte Esterase Negative (Negative) Urine RBC Not seen (0-5) /hpf Urine WBC Not seen (0-5) /hpf Ur Squamous Epith Cells 0-5 (0-5) /hpf Urine Bacteria Rare (FEW) /hpf Urine Mucus Few (FEW) /hpf SARS-CoV-2 RNA (EYAD) Negative (NEGATIVE) Meds: Medications Generic Name Dose Route Start Last Admin Trade Name Freq PRN Reason Stop Dose Admin Acetaminophen 650 mg 12/25/20 09:34 12/27/20 03:37 Acetaminophen 325 Mg Tab PO 650 mg Q4H PRN Administration Pain (Mild 1-3)/fever Acetaminophen 650 mg 12/25/20 09:34 Acetaminophen 650 Mg Supp RECTAL Q4H PRN Pain (mild 1-3) Albuterol/Ipratropium 3 ml 12/25/20 09:34 Albuterol/Ipratropium 3.0-0.5 Mg/3 Ml Neb Soln NEB QIDRT PRN Shortness Of Breath/wheezing Dexamethasone 6 mg 12/26/20 09:00 12/26/20 08:03 Dexamethasone 4 Mg Tab PO 6 mg DAILY LEÓN Administration Piperacillin Sod/Tazobactam 100 mls @ 25 mls/hr 12/25/20 18:00 12/27/20 03:25 Sod 4.5 gm/ Sodium Chloride IV 25 mls/hr Q8H LEÓN Administration Lamotrigine 50 mg 12/26/20 09:00 12/26/20 21:04 Lamotrigine 25 Mg Tab.Chew PO 50 mg BID LEÓN Administration Levetiracetam 500 mg 12/25/20 21:00 12/26/20 21:04 Levetiracetam 500 Mg Tab PO 500 mg BID LEÓN Administration Levothyroxine Sodium 100 mcg 12/26/20 07:00 12/27/20 06:57 Levothyroxine 100 Mcg Tab PO Not Given DAILY@0700 LEÓN Lorazepam 0.5 mg 12/25/20 11:17 Lorazepam 2 Mg/Ml Sdv IVPUSH Q4H PRN Anxiety Lorazepam 2 mg 12/25/20 15:12 Lorazepam 2 Mg/Ml Sdv IVPUSH Q4H PRN Seizures Desvenlafaxine Er 50 50 mg 12/26/20 09:00 12/26/20 08:07 Mg Tab.Er.24h PO 50 mg Ptom DAILY LEÓN Administration Ondansetron HCl 4 mg 12/25/20 09:34 Ondansetron 4 Mg/2 Ml Sdv IV Q6H PRN Nausea/Vomiting Discontinued Medications Generic Name Dose Route Start Last Admin Trade Name Freq PRN Reason Stop Dose Admin Acetaminophen 975 mg 12/24/20 23:04 12/24/20 23:48 Acetaminophen 325 Mg Tab PO 12/24/20 23:05 Not Given ONETIME ONE Acetaminophen Confirm 12/24/20 23:36 12/24/20 23:47 Acetaminophen 650 Mg Supp Administered 12/24/20 23:37 Not Given Dose 650 mg .ROUTE .STK-MED ONE Acetaminophen 650 mg 12/24/20 23:47 12/24/20 23:47 Acetaminophen 650 Mg Supp RECTAL 12/24/20 23:48 650 mg NOW ONE Administration Acetaminophen 650 mg 12/25/20 08:57 12/25/20 09:01 Acetaminophen 325 Mg Tab PO 12/25/20 08:58 650 mg NOW ONE Administration Dexamethasone 6 mg 12/24/20 22:56 12/24/20 23:44 Dexamethasone 10 Mg/Ml Sdv IVPUSH 12/24/20 22:57 6 mg ONETIME ONE Administration Diphenhydramine HCl 12.5 mg 12/24/20 20:45 12/24/20 21:22 Diphenhydramine 50 Mg/Ml Sdv IVPUSH 12/24/20 20:46 12.5 mg ONETIME ONE Administration Sodium Chloride 1,000 mls @ 100 mls/hr 12/24/20 20:45 12/25/20 10:30 Normal Saline IV 100 mls/hr ASDIRECTED LEÓN Administration Ceftriaxone Sodium 2 gm/ 100 mls @ 200 mls/hr 12/24/20 22:57 12/24/20 23:45 Sodium Chloride IV 12/24/20 23:26 200 mls/hr ONETIME ONE Administration Metronidazole 500 mg/ Premix 100 mls @ 100 mls/hr 12/25/20 00:22 12/25/20 04:38 IV 12/25/20 01:21 Not Given ONETIME ONE Levetiracetam 500 mg/ Sodium 105 mls @ 400 mls/hr 12/25/20 05:39 12/25/20 06:09 Chloride IV 12/25/20 05:53 400 mls/hr ONETIME ONE Administration Piperacillin Sod/Tazobactam 100 mls @ 200 mls/hr 12/25/20 10:00 12/25/20 10:30 Sod 4.5 gm/ Sodium Chloride IV 12/25/20 10:29 200 mls/hr ONETIME ONE Administration Lactated Ringer's 1,000 mls @ 60 mls/hr 12/25/20 14:45 12/25/20 15:55 Ringers, Lactated IV 60 mls/hr ASDIRECTED LEÓN Administration Potassium Chloride 10 meq/ 100 mls @ 100 mls/hr 12/26/20 07:30 12/26/20 10:00 Premix IV 12/26/20 11:29 Not Given Q1H LEÓN Lamotrigine 25 mg 12/25/20 21:00 12/25/20 20:45 Lamotrigine 25 Mg Tab.Chew PO 12/25/20 21:01 Not Given ONETIME ONE Metoclopramide HCl 7.5 mg 12/24/20 20:45 12/24/20 21:22 Metoclopramide 10 Mg/2 Ml Sdv IVPUSH 12/24/20 20:46 7.5 mg ONETIME ONE Administration Morphine Sulfate 2 mg 12/25/20 09:34 Morphine 2 Mg/Ml Syringe IVPUSH 12/26/20 09:36 Q2H PRN Pain (severe 7-10) Potassium Chloride 40 meq 12/26/20 08:23 12/26/20 09:59 Potassium Chloride 20 Meq Tab.Er PO 12/26/20 08:24 40 meq ONETIME ONE Administration - Radiology Interpretation Free Text/Narrative:: 60-year-old female presents to the ED in the accompaniment of her brother and after sudden decline in neurological function. 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 The tumor was initially debulked by neurosurgery with subsequent radiation treatments. Radiation treatments have continued here in [place] under the care of Dr. Sanabria and Dr. Gutierrez oncology services at [facility] in [place]. Her neurologist is Dr. Desai. Most recently apparently 10 new lesions are of been identified on MRI and therefore the initial tumor does not be seem to be responding to radiation. She did eat breakfast this morning and did have dinner. She did not eat any supper. Approximately an hour and 15 minutes prior to arrival in the emergency room she had spontaneous onset of emesis with inability to walk. Family was not sure which side seemed to be weaker but they thought it was likely the right. The patient had spoken very little to them since onset of emesis. On my evaluation she appeared to be having pain by holding onto the right side of her head. She did speak to the nurses and indicated her name and her birthday but did not know where she was or the time of day. She had absence of reflexes in all limbs. Babinski was upgoing on both sides. Pupils were equal and responsive to light and accommodation. Plan Reglan 10 mg IV. Normal saline at 100 mils per hour. Suspect acute hemorrhage into one of the tumors. CT scan of the brain will be done as well as chest x-ray. - Re-Assessments/Exams Free Text/Narrative Re-Assessment/Exam: 12/24/20 22:20: CT of the brain completed without contrast. Persistent mass involving the left posterior medial parietal lobe just superior to the left lateral ventricles currently measuring 4.2 x 4.7 x 3.8 cm. This is both hyper and hypodense components. When compared to the prior study dated 09-15-2020 side there is a mass has increased. There is a small amount of blood noted in the occipital horn of the right lateral ventricle similar to the prior study dated 09/15/2020. Midline cystic structure measuring 2.1 x 1.9 cm essentially unchanged since the prior study dated 09/15/2020. This is causing compression of the third ventricle downward and contributing to the mild hydrocephalus of the lateral ventricles. Mildly prominent lateral ventricle on the right increased since the prior study dated 09/15/2020. Visualized sinuses are unremarkable. No fluid levels. Visualized mastoid air cells are well aerated. Status post right parieto-occipital craniotomy noted similar to the prior study. Impression that is interval increase in the size of the left posterior medial parietal lobe mass currently measuring 4.7 x 4.2 x 3.8 cm consistent with a hemorrhagic metastatic lesion exerting mild mass-effect upon the left lateral ventricle consistent with a hemorrhagic metastatic lesion. The previously noted vasogenic edema has decreased since the prior study dated September 15.secondly there is a midline cystic structure measuring 2.1 x 1.9 cm ess entially unchanged since the prior study dated 09/15/2020 this is causing compression of the third ventricle downward and contributing to the mild hydrocephalus of the lateral ventricles. Small amount of blood in the posterior horn of the right lateral ventricles is stable since the prior study dated 09/15/2020. The mildly enlarged right lateral ventricle is new since the prior study of 09/15/2020. Chest x-ray was poor inspirational view slight atelectasis appreciated right lower lung field cardiac silhouette and mediastinum are normal. 12/24/20 22:26 I discussed the findings with the patient's . I will phone [facility] in [place] to see if there is any bed availability. As all beds in the [facility] have been filled primarily with COVID-19 patients. Lesion is deep within the brain is not amenable to neurosurgery intervention. I have spoken through 1 call service at [facility] in [place] where the patient has been receiving care. At present they do not have any bed availability. I will speak to the neurosurgeon on-call to help decide if further intervention such as dexamethasone is useful in helping to reduce edema at this time. 12/24/20 22:43 I was able to speak with Dr. Saldivar, neurosurgeon crayon painter and he agrees that unfortunately the condition is considered terminal. He does believe that steroids may help reduce the size of the bleed and swelling and may help her continue along for a period of time. She definitely is febrile on examination as well. Unclear source of infection although she does have mild transaminase elevation. I will order serum lipase and serum GGT. I will give her Rocephin 2 g IV. I will also give her Tylenol 975 mg p.o. Urinalysis is not yet been collected. Her will go home for the night to get some sle ep and be back in the morning. Patient will be boarded in the emergency room overnight since are no beds in the [facility]. 12/24/20 23:51 Patient is too confused at this point time to be able to swallow Tylenol tablets. She will therefore be given Tylenol 650 mg per rectum. COVID- 19 screen is negative. Lipase was normal at 96 as well. Her elevated temperature may be due to autonomic nervous system dysfunction due to brain tumor. 12/25/20 00:22 GGT has returned elevated at 1096. 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 We will add Flagyl 500 mg IV to her current treatment plan. Ultrasound of the abdomen could likely be performed. At this time she is quite confused. I will await to see if her fever comes down with oral Tylenol to see whether or not she could lie still long enough for CT of the abdomen and pelvis with IV contrast only. 12/25/20 04:09 CT of the pelvis and abdomen has been completed with IV contrast. It reveals that there is a mass in the inferior lobe of the right lung compatible with metastatic melanoma. Innumerable small pulmonary nodules are present at the lung bases. Linear areas of atelectasis or sore scarring are present within the right lower lobe and to a lesser extent right middle lobes of the lungs. Trace dependent atelectasis in the lower lobes of the lungs. A soft tissue attenuation nodule is present in the right inferior breast, 7 x 7 mm in axial dimensions. Innumerable hypodense lesions are present throughout the liver which measure up to 2.3 x 3.1 cm in axial dimensions. Left adrenal nodule, 1.8 x 1.5 cm in axial dimension which has an attenuation of 25 Hounsfield units. Solid abdominal organs are otherwise unremarkable. The gallbladder is nondistended. No radiopaque gallstones or biliary ductal dilatation noted. The colon is nondistended containing a small amount of fluid. Stool is present and fairly large quantity of the colon. Bowel is otherwise unremarkable. Normal appendix is identified. Minimal small abdominal aortic atherosclerotic calcification. No abdominal aortic aneurysm or dissection. No abdominal or pelvic lymphadenopathy. Uterus and ovaries are unremarkable. The urinary bladder is fluid-filled and unremarkable. No free intraperitoneal air or fluid evident. Osseous structures are intact no suspicious osseous lesions identified the liver is absolutely riddled with metastatic melanoma with at least 20-25 nodules within the liver which are causing the elevated liver enzymes and appearance of biliary tree obstruction identified laboratory garcia. Therefore this patient's condition is terminal. No further investigations or treatment will be entertained at this time. The goal would be keep her as comfortable as possible. 12/25/20 05:40 I have ordered her Keppra 500 mg IV at this time as she usually takes it in the mornings. 12/25/20 06:30 it is hopeful that this lady might be able to go home with her this morning. She presented with acute onset of nausea and vomiting last evening felt to be due to a small bleed within a tumor within the left parietal brain superior to the lateral ventricle. There appeared to be a combination of old and new blood in this area. However shortly after admission to the ER she did spike a fever of greater than 102 degrees which required further investigation by way of blood cultures initial labs suggested possible ascending cholangitis due to biliary tree obstruction. However CT of the abdomen and pelvis was performed during the night which revealed multiple metastatic tumors that involve approximately 50 to 60% of her liver volume causing elevated hepatic enzymes. Her condition is considered palliative at best. It is unclear whether or not she is on hospice care at this time. Her will be returning to the emergency room this morning and decisions will have to be made about ongoing treatment and care. She is currently under the care of Dr. Sanabria and Dr. Gutierrez oncologists in [facility] and neurologist is Dr. Desai. 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
[2020-12-24] MEDS: Sodium Chloride 0.9% 1,000 ML IV SCH (21:21)
[2020-12-24] MEDS ORDERED: Dexamethasone 10 MG/ML SDV IVPUSH ONE (22:56)
[2020-12-24] MEDS ORDERED: cefTRIAXone 2 GM in Sodium Chloride 0.9% 100 ML IV ONE (22:57)
[2020-12-24] MEDS ORDERED: Acetaminophen 325 MG Tab PO ONE (23:04)
[2020-12-24] MEDS ORDERED: Acetaminophen 650 MG Supp ONE (23:36)
[2020-12-24] MEDS ORDERED: Acetaminophen 650 MG Supp RECTAL ONE (23:47)
[2020-12-25] MEDS ORDERED: metroNIDAZOLE/Normal Saline 500 MG in Premix Bag 1 BAG IV ONE (00:22)
[2020-12-25] MEDS ORDERED: levETIRAcetam 500 MG in Sodium Chloride 0.9% 100 ML IV ONE (05:39)
--- NOTE | 2020-12-25 06:38 | CR ---
Chest: Portable view of the chest was obtained. Comparison: Prior chest x-ray of 05/31/20. Focal density is seen within the right lung base. Lungs otherwise are clear. Heart size and mediastinum are within normal limits. No acute osseous abnormality is appreciated. Impression: 1. Focal density within the right lower lung. This could represent a thick area of atelectasis as well as pneumonia if patient has infectious symptoms. Difficult to completely exclude a more proximal lesion causing postobstructive atelectasis. 2. Please correlate if patient's symptoms warrant further evaluation by contrast-enhanced chest CT. Diagnostic code #3
--- NOTE | 2020-12-25 06:42 | CT ---
Head CT Technique: Multiple axial sections through the brain were obtained. Intravenous contrast was utilized. Prior head CT study of 09/15/20. Findings: Hyperdense lesion is identified within the left posteromedial parietal region medial to the lateral left ventricle. This measures about 2.5 x 4.1 cm. This finding has mildly increased when compared to prior study. There is edema being seen around this lesion which has diminished from previous exam. There is a small amount of acute blood within the posterior right ventricle. Midline cystic area is seen which pushes the third ventricle inferiorly. Cystic lesion measures about 2.2 cm in size and appears to be stable in size. Decreased blood is seen from prior exam within this lesion. There is edema being seen on the right side which is stable from prior exam. No other abnormal parenchymal densities are seen. Bone window settings were reviewed. Visualized mastoid sinuses and paranasal sinuses show nothing acute. Previous right-sided craniotomy is noted. Impression: 1. Hyperdense lesion within the left posteromedial medial to the lateral left ventricle. This measures 2.5 x 4.1 cm. This has slightly increased in size from previous exam and is compatible with metastatic lesion. 2. 2.2 cm mass within the midline pushing the third ventricle inferiorly. This shows decreased hemorrhage from prior exam but otherwise is stable. 3. Vasogenic edema is noted on both sides which kiara improved on the left side and is stable on the right side. 4. Small amount of acute blood is seen within the posterior right ventricle. Diagnostic code #9 I agree with preliminary report from [facility] finalized on 12/24/20, 11:27 PM CDT, code 1
--- NOTE | 2020-12-25 06:47 | CT ---
CT abdomen and pelvis Technique: Multiple axial sections were obtained from above the dome of the diaphragm inferiorly through the pubic symphysis. Intravenous contrast was utilized. No oral contrast was given. Delayed images were also obtained through the abdomen and pelvis. Comparison: No prior abdominal imaging is available. Findings: Small nodule is identified within the right breast measuring 1.0 cm. Numerous pulmonary nodules are seen within the lung bases, worse on the right side. Focal density is seen within the right lower chest and difficult to exclude an area of pneumonia. Minimal atelectasis is seen. Soft tissue nodule is noted within the right lung base measuring 1.5 cm. Liver shows numerous low density lesions within the right and left lobes. These lesions appear to be solid. Largest abnormality measures approximately 2.5 x 2.4 cm. Spleen appears normal. Left adrenal gland shows a low density mass measuring 1.9 cm in size most likely representing a metastatic lesion. Right adrenal gland is unremarkable. Pancreas shows no discrete abnormality. Gallbladder contains no calcified gallstones. Kidneys show symmetric contrast enhancement with slight atherosclerotic calcification which continues into the iliac vessels. No aneurysm is seen. No retroperitoneal adenopathy is noted. No mesenteric abnormalities are seen. No pelvic mass or adenopathy is seen. Appendix is seen and is normal in size. Mild increased stool is seen throughout the colon. Bone window settings were reviewed. Degenerative disc change is noted at L4-5 and more prominent at L5-S1. Degenerative apophyseal change is seen. No acute osseous abnormality is appreciated. Impression: 1. Multiple nodules within the lungs as well as the liver and a left adrenal nodule. These findings are highly suspicious for metastatic disease. 2. Small breast nodule measuring 1.0 cm. Mammogram study is recommended as well as right breast ultrasound. 3. Slight increased stool within the colon and other incidental findings as noted above. 4. Focal density within the right lung base, difficult to exclude an area of pneumonia if patient has infectious symptoms. Diagnostic code #9 I agree with preliminary report from [facility] finalized on 12/25/20, 6:27 AM CDT, code 1
[2020-12-25] MEDS ORDERED: Acetaminophen 325 MG Tab PO ONE (08:57)
--- NOTE | 2020-12-25 09:24 | PCM.HP.2 ---
<Juwan Ny - Last Filed: 12/25/20 14:42> H&P History of Present Illness - General Date of Service: 12/25/20 Admit Problem/Dx: Admission Diagnosis/Problem Admission Diagnosis/Problem Pneumonia Source of Information: Patient, Old Records, Provider, RN, RN Notes Reviewed, Significant Other History Limitations: Reports: Altered Mental Status - History of Present Illness Initial Comments - Free Text/Narative: This is a 60-year-old female who presents to ED on the evening of 12/24/2020 accompanied by her and brother due to confusion, weakness, and an episode of emesis. Per the ED report she had been walking and acting appropriately earlier in the day. 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 She reportedly had brain surgery to debulk the tumor and she had been receiving radiation treatments in [place] and recently in [place]. Radiation oncology has been decreasing her dexamethasone treatments. In the ED twelve-lead EKG is obtained showing a sinus rhythm at 89 bpm with a left atrial hypertrophy pattern and decreased voltage in the limb leads with poor R wave progression. T wave flattening in aVL is also noted. Temp is 36.6. Pulse 77. Respirations 13. Blood pressure 121/77. Pulse ox 97%. Labs are obtained showing a WBC of 10.26. Hemoglobin is 11.4. She is macrocytic. Platelet 273,000. Neutrophils are elevated at 80.7%. INR is 1.00. aPTT is 23. 1. Sodium 136. Potassium 3.7. Chloride 98. Carbon dioxide 28. Anion gap is 13.7. BUN is 17. Creatinine 0.6. GFR is greater than 60. Glucose is 114. Calcium 8.2. Magnesium 2.1. Total bilirubin 0.8. AST is elevated at 211. ALT elevated at 430. Alkaline phosphatase elevated at 495. CRP is 8.3. Protein 6.3. Albumin 2.9. Lactic acid is 1.7. GGT is 1096. proBNP is 257. Lipase is 96. UA is negative. SARS-CoV-2 RNA is negative. She was noted to have absence of reflexes in all limbs in the ED Babinski was upgoing on both sides and pupils were equal and reactive. Chest x-ray is obtained showing a focal density within the right lower lung which could represent a thick area of atelectasis as well as pneumonia if the patient has infectious symptoms. Difficult to completely ex clude a more proximal lesion causing postobstructive atelectasis. Chest CT was suggested. CT of the abdomen and pelvis was obtained showing multiple nodules within the lungs as well as liver and left adrenal nodule. These findings are highly suspicious for metastatic disease. There was a small breast nodule measuring 1 cm and mammographic study is recommended as well as right breast ultrasound. There is slightly increased stool within the colon and other incidental findings as noted. There is also a focal density within the right lung base, difficult to exclude area of pneumonia if patient has infectious symptoms. Head CT was obtained showing 1. Hyperdense lesion within the left posteromedial medial to the lateral left ventricle. This measures 2.5 x 4.1 cm. This has slightly increased in size from previous exam and is compatible with metastatic lesion. 2. 2.2 cm mass within the midline pushing the third ventricle inferiorly. This shows decreased hemorrhage from prior exam but otherwise is stable. 3. Vasogenic edema is noted on both sides which has improved on the left side and is stable in the right side. 4. Small amount of acute blood is seen within the posterior right ventricle. Dr. Waite, neurosurgeon on-call was contacted and he feels the condition is considered terminal. He reports steroids may help reduce the size of the bleed and swelling but will only help for short period of time. Unfortunately no beds were available in the state or in our facility and the patient was boarded in the emergency room. She was given Tylenol for her fever and started on Rocephin 2 g. She was also given metronidazole. She sees Dr. Sanabria and Dr. Raza in [place]. Her neurologist is Dr. Desai. PCP is Dr. Blackwell. She carries a history of seizures, anxiety, depression, hypothyroidism, Rosario's thyroiditis, malignant brain melanoma. She is a DNR/DNI and this was confirmed with the patient and her in the emergency room. She is subsequently admitted to the floor for further management and work-up of her suspected pneumonia. She will also require further assistance with discharge disposition, i.e. hospice versus SNF placement. - Related Data Allergies/Adverse Reactions: Allergies Allergy/AdvReac Type Severity Reaction Status Date / Time Kouwrvl-Vsg-Hkc Reductase Allergy Unknown Other Verified 12/25/20 12:11 Inhibitor hydrocodone AdvReac Severe Nausea Verified 12/24/20 20:48 Home Medications: Home Meds Levothyroxine Sodium [Synthroid] 100 mcg PO DAILY 06/12/14 [History] dexAMETHasone [Dexamethasone] 2 mg PO DAILY 09/15/20 [History] Promethazine [Phenergan] 25 mg PO Q6H PRN #20 tab 11/07/20 [Rx] levETIRAcetam [Keppra] 500 mg PO BID 11/07/20 [History] Cefdinir [Omnicef] 300 mg PO BID #16 cap 12/25/20 [Rx] Desvenlafaxine [Desvenlafaxine ER] 50 mg PO DAILY 12/25/20 [History] lamoTRIgine [Lamotrigine] 25 mg PO BID 12/25/20 [History] lamoTRIgine [Lamotrigine] 50 mg PO BID 12/25/20 [History] Past Medical History Musculoskeletal History: Reports: Fracture Neurological History: Reports: Seizure (Has experienced seizures after debulking of malignant melanoma tumor from her brain right parietal cortex in December 2019. patient takes Keppra 500 mg by mouth daily) Other Neuro History: brain tumor Psychiatric History: Reports: Anxiety, Depression Endocrine/Metabolic History: Reports: Hypothyroidism, Other (See Below) Other Endocrine/Metabolic History: Hashimotos Oncologic (Cancer) History: Reports: Brain, Malignant Melanoma - Past Surgical History Neurological Surgical History: Reports: Other (See Below) Other Neurological Surgeries/Procedures: resection of brain tumor Social & Family History - Tobacco Use Tobacco Use Status *Q: Never Tobacco User Second Hand Smoke Exposure: No - Caffeine Use Caffeine Use: Reports: None - Recreational Drug Use Recreational Drug Use: No - Living Situation & Occupation Living situation: Reports: Occupation: Employed H&P Review of Systems - Review of Systems: Review Of Systems: See Below General: Reports: Malaise, Weakness, Fatigue, Decreased Appetite. Denies: Fever (Reported in ED - none currently ), Chills HEENT: Denies: Headaches, Sore Throat Pulmonary: Reports: No Symptoms. Denies: Shortness of Breath, Wheezing, Cough, Sputum Cardiovascular: Reports: No Symptoms. Denies: Chest Pain, Palpitations, Dyspnea on Exertion, Edema Gastrointestinal: Reports: No Symptoms. Denies: Abdominal Pain, Diarrhea, Nausea, Vomiting Genitourinary: Reports: No Symptoms. Denies: Pain Musculoskeletal: Reports: No Symptoms Skin: Reports: No Symptoms Psychiatric: Reports: Confusion, Depression, Anxiety Neurological: Reports: Difficulty Walking, Weakness, Gait Disturbance. Denies: Dizziness, Headache, Numbness, Pre-Existing Deficit, Seizure, Syncope, Tingling Hematologic/Lymphatic: Reports: No Symptoms. Denies: Anemia Immunologic: Reports: No Symptoms Exam - Exam Exam: See Below - Vital Signs Vital Signs: Last Vital Signs Temp 100.5 F 12/25/20 09:01 Pulse 79 12/25/20 08:15 Resp 18 12/25/20 08:15 BP 109/63 12/25/20 08:15 Pulse Ox 98 12/25/20 08:15 Weight: 129 lb - Exam Quality Assessment: DVT Prophylaxis (ELIAS cruz ). No: Supplemental Oxygen, Urinary Catheter General: Alert, Cooperative. No: Oriented (Waxes and wanes), Mild Distress HEENT: Conjunctiva Clear, EACs Clear, Mucosa Moist & [place], Posterior Pharynx Clear Neck: Supple, Trachea Midline Lungs: Clear to Auscultation, Normal Respiratory Effort Cardiovascular: Regular Rate, Regular Rhythm GI/Abdominal Exam: Normal Bowel Sounds, Soft, Non-Tender, No Distention (Female) Exam: Deferred Rectal (Female) Exam: Deferred Back Exam: Normal Inspection, Full Range of Motion Extremities: Normal Inspection, Normal Range of Motion, Non-Tender, No Pedal Edema, Normal Capillary Refill Peripheral Pulses: 4+: Radial (L), Radial (R), Dorsalis Pedis (L), Dorsalis Pedis (R) Skin: Warm, Dry, Intact Neurological: Strength Equal Bilateral, Normal Speech, Sensation Intact Psychiatric: Alert, Anxious, Depressed - Patient Data Lab Results Last 24 hrs: Laboratory Results - last 24 hr 12/24/20 12/24/20 12/24/20 Range/Units 21:20 21:20 21:20 WBC 10.26 H (3.98-10.04) K/mm3 RBC 3.76 L (3.98-5.22) M/mm3 Hgb 11.4 (11.2-15.7) gm/dl Hct 35.7 (34.1-44.9) % MCV 94.9 H D (79.4-94.8) fl MCH 30.3 (25.6-32.2) pg MCHC 31.9 L (32.2-35.5) g/dl RDW Std Deviation 55.9 H (36.4-46.3) fL Plt Count 273 (182-369) K/mm3 MPV 9.5 (9.4-12.3) fl Neut % (Auto) 80.7 H (34.0-71.1) % Lymph % (Auto) 4.5 L (19.3-51.7) % [place] % (Auto) 10.9 (4.7-12.5) % Eos % (Auto) 0.1 L (0.7-5.8) Baso % (Auto) 0.2 (0.1-1.2) % Neut # (Auto) 8.28 H (1.56-6.13) K/mm3 Lymph # (Auto) 0.46 L (1.18-3.74) K/mm3 [place] # (Auto) 1.12 H (0.24-0.36) K/mm3 Eos # (Auto) 0.01 L (0.04-0.36) K/mm3 Baso # (Auto) 0.02 (0.01-0.08) K/mm3 Manual Slide Review Abnormal smear PT 10.7 (9.7-12.0) SECONDS INR 1.00 APTT 23.1 (21.7-31.4) SECONDS Sodium 136 (136-145) mEq/L Potassium 3.7 (3.5-5.1) mEq/L Chloride 98 (98-107) mEq/L Carbon Dioxide 28 (21-32) mEq/L Anion Gap 13.7 (5-15) BUN 17 (7-18) mg/dL Creatinine 0.6 (0.55-1.02) mg/dL Est Cr Clr Drug Dosing 90.95 mL/min Estimated GFR (MDRD) > 60 (>60) mL/min BUN/Creatinine Ratio 28.3 H (14-18) Glucose 114 H (70-99) mg/dL POC Glucose (70-99) mg/dL Lactic Acid (0.4-2.0) mmol/L Calcium 8.2 L (8.5-10.1) mg/dL Magnesium 2.1 (1.8-2.4) mg/dL Total Bilirubin 0.8 (0.2-1.0) mg/dL GGT (5-55) U/L AST 211 H (15-37) U/L ALT 430 H (14-59) U/L Alkaline Phosphatase 495 H (46-116) U/L C-Reactive Protein 8.3 H* (<1.0) mg/dL NT-Pro-B Natriuret Pep (0-125) pg/mL Total Protein 6.3 L (6.4-8.2) g/dl Albumin 2.9 L (3.4-5.0) g/dl Globulin 3.4 gm/dL Albumin/Globulin Ratio 0.9 L (1-2) Lipase (73-393) U/L Urine Color (Yellow) Urine Appearance (Clear) Urine pH (5.0-8.0) Ur Specific [place] (1.005-1.030) Urine Protein (Negative) Urine Glucose (UA) (Negative) Urine Ketones (Negative) Urine Occult Blood (Negative) Urine Nitrite (Negative) Urine Bilirubin (Negative) Urine Urobilinogen (0.2-1.0) Ur Leukocyte Esterase (Negative) Urine RBC (0-5) /hpf Urine WBC (0-5) /hpf Ur Squamous Epith Cells (0-5) /hpf Urine Bacteria (FEW) /hpf Urine Mucus (FEW) /hpf SARS-CoV-2 RNA (EYAD) (NEGATIVE) 12/24/20 12/24/20 12/24/20 Range/Units 21:20 21:20 21:20 WBC (3.98-10.04) K/mm3 RBC (3.98-5.22) M/mm3 Hgb (11.2-15.7) gm/dl Hct (34.1-44.9) % MCV (79.4-94.8) fl MCH (25.6-32.2) pg MCHC (32.2-35.5) g/dl RDW Std Deviation (36.4-46.3) fL Plt Count (182-369) K/mm3 MPV (9.4-12.3) fl Neut % (Auto) (34.0-71.1) % Lymph % (Auto) (19.3-51.7) % [place] % (Auto) (4.7-12.5) % Eos % (Auto) (0.7-5.8) Baso % (Auto) (0.1-1.2) % Neut # (Auto) (1.56-6.13) K/mm3 Lymph # (Auto) (1.18-3.74) K/mm3 [place] # (Auto) (0.24-0.36) K/mm3 Eos # (Auto) (0.04-0.36) K/mm3 Baso # (Auto) (0.01-0.08) K/mm3 Manual Slide Review PT (9.7-12.0) SECONDS INR APTT (21.7-31.4) SECONDS Sodium (136-145) mEq/L Potassium (3.5-5.1) mEq/L Chloride (98-107) mEq/L Carbon Dioxide (21-32) mEq/L Anion Gap (5-15) BUN (7-18) mg/dL Creatinine (0.55-1.02) mg/dL Est Cr Clr Drug Dosing mL/min Estimated GFR (MDRD) (>60) mL/min BUN/Creatinine Ratio (14-18) Glucose (70-99) mg/dL POC Glucose (70-99) mg/dL Lactic Acid 1.7 (0.4-2.0) mmol/L Calcium (8.5-10.1) mg/dL Magnesium (1.8-2.4) mg/dL Total Bilirubin (0.2-1.0) mg/dL GGT 1096 H (5-55) U/L AST (15-37) U/L ALT (14-59) U/L Alkaline Phosphatase (46-116) U/L C-Reactive Protein (<1.0) mg/dL NT-Pro-B Natriuret Pep 257 H (0-125) pg/mL Total Protein (6.4-8.2) g/dl Albumin (3.4-5.0) g/dl Globulin gm/dL Albumin/Globulin Ratio (1-2) Lipase (73-393) U/L Urine Color (Yellow) Urine Appearance (Clear) Urine pH (5.0-8.0) Ur Specific [place] (1.005-1.030) Urine Protein (Negative) Urine Glucose (UA) (Negative) Urine Ketones (Negative) Urine Occult Blood (Negative) Urine Nitrite (Negative) Urine Bilirubin (Negative) Urine Urobilinogen (0.2-1.0) Ur Leukocyte Esterase (Negative) Urine RBC (0-5) /hpf Urine WBC (0-5) /hpf Ur Squamous Epith Cells (0-5) /hpf Urine Bacteria (FEW) /hpf Urine Mucus (FEW) /hpf SARS-CoV-2 RNA (EYAD) (NEGATIVE) 12/24/20 12/24/20 12/25/20 Range/Units 21:20 22:30 00:02 WBC (3.98-10.04) K/mm3 RBC (3.98-5.22) M/mm3 Hgb (11.2-15.7) gm/dl Hct (34.1-44.9) % MCV (79.4-94.8) fl MCH (25.6-32.2) pg MCHC (32.2-35.5) g/dl RDW Std Deviation (36.4-46.3) fL Plt Count (182-369) K/mm3 MPV (9.4-12.3) fl Neut % (Auto) (34.0-71.1) % Lymph % (Auto) (19.3-51.7) % [place] % (Auto) (4.7-12.5) % Eos % (Auto) (0.7-5.8) Baso % (Auto) (0.1-1.2) % Neut # (Auto) (1.56-6.13) K/mm3 Lymph # (Auto) (1.18-3.74) K/mm3 [place] # (Auto) (0.24-0.36) K/mm3 Eos # (Auto) (0.04-0.36) K/mm3 Baso # (Auto) (0.01-0.08) K/mm3 Manual Slide Review PT (9.7-12.0) SECONDS INR APTT (21.7-31.4) SECONDS Sodium (136-145) mEq/L Potassium (3.5-5.1) mEq/L Chloride (98-107) mEq/L Carbon Dioxide (21-32) mEq/L Anion Gap (5-15) BUN (7-18) mg/dL Creatinine (0.55-1.02) mg/dL Est Cr Clr Drug Dosing mL/min Estimated GFR (MDRD) (>60) mL/min BUN/Creatinine Ratio (14-18) Glucose (70-99) mg/dL POC Glucose (70-99) mg/dL Lactic Acid (0.4-2.0) mmol/L Calcium (8.5-10.1) mg/dL Magnesium (1.8-2.4) mg/dL Total Bilirubin (0.2-1.0) mg/dL GGT (5-55) U/L AST (15-37) U/L ALT (14-59) U/L Alkaline Phosphatase (46-116) U/L C-Reactive Protein (<1.0) mg/dL NT-Pro-B Natriuret Pep (0-125) pg/mL Total Protein (6.4-8.2) g/dl Albumin (3.4-5.0) g/dl Globulin gm/dL Albumin/Globulin Ratio (1-2) Lipase 96 (73-393) U/L Urine Color Yellow (Yellow) Urine Appearance Clear (Clear) Urine pH 7.5 (5.0-8.0) Ur Specific [place] 1.020 (1.005-1.030) Urine Protein 1+ H (Negative) Urine Glucose (UA) Negative (Negative) Urine Ketones Negative (Negative) Urine Occult Blood Negative (Negative) Urine Nitrite Negative (Negative) Urine Bilirubin Negative (Negative) Urine Urobilinogen 1.0 (0.2-1.0) Ur Leukocyte Esterase Negative (Negative) Urine RBC Not seen (0-5) /hpf Urine WBC Not seen (0-5) /hpf Ur Squamous Epith Cells 0-5 (0-5) /hpf Urine Bacteria Rare (FEW) /hpf Urine Mucus Few (FEW) /hpf SARS-CoV-2 RNA (EYAD) Negative (NEGATIVE) 12/25/20 Range/Units 04:48 WBC (3.98-10.04) K/mm3 RBC (3.98-5.22) M/mm3 Hgb (11.2-15.7) gm/dl Hct (34.1-44.9) % MCV (79.4-94.8) fl MCH (25.6-32.2) pg MCHC (32.2-35.5) g/dl RDW Std Deviation (36.4-46.3) fL Plt Count (182-369) K/mm3 MPV (9.4-12.3) fl Neut % (Auto) (34.0-71.1) % Lymph % (Auto) (19.3-51.7) % [place] % (Auto) (4.7-12.5) % Eos % (Auto) (0.7-5.8) Baso % (Auto) (0.1-1.2) % Neut # (Auto) (1.56-6.13) K/mm3 Lymph # (Auto) (1.18-3.74) K/mm3 [place] # (Auto) (0.24-0.36) K/mm3 Eos # (Auto) (0.04-0.36) K/mm3 Baso # (Auto) (0.01-0.08) K/mm3 Manual Slide Review PT (9.7-12.0) SECONDS INR APTT (21.7-31.4) SECONDS Sodium (136-145) mEq/L Potassium (3.5-5.1) mEq/L Chloride (98-107) mEq/L Carbon Dioxide (21-32) mEq/L Anion Gap (5-15) BUN (7-18) mg/dL Creatinine (0.55-1.02) mg/dL Est Cr Clr Drug Dosing mL/min Estimated GFR (MDRD) (>60) mL/min BUN/Creatinine Ratio (14-18) Glucose (70-99) mg/dL POC Glucose 167 H (70-99) mg/dL Lactic Acid (0.4-2.0) mmol/L Calcium (8.5-10.1) mg/dL Magnesium (1.8-2.4) mg/dL Total Bilirubin (0.2-1.0) mg/dL GGT (5-55) U/L AST (15-37) U/L ALT (14-59) U/L Alkaline Phosphatase (46-116) U/L C-Reactive Protein (<1.0) mg/dL NT-Pro-B Natriuret Pep (0-125) pg/mL Total Protein (6.4-8.2) g/dl Albumin (3.4-5.0) g/dl Globulin gm/dL Albumin/Globulin Ratio (1-2) Lipase (73-393) U/L Urine Color (Yellow) Urine Appearance (Clear) Urine pH (5.0-8.0) Ur Specific [place] (1.005-1.030) Urine Protein (Negative) Urine Glucose (UA) (Negative) Urine Ketones (Negative) Urine Occult Blood (Negative) Urine Nitrite (Negative) Urine Bilirubin (Negative) Urine Urobilinogen (0.2-1.0) Ur Leukocyte Esterase (Negative) Urine RBC (0-5) /hpf Urine WBC (0-5) /hpf Ur Squamous Epith Cells (0-5) /hpf Urine Bacteria (FEW) /hpf Urine Mucus (FEW) /hpf SARS-CoV-2 RNA (EYAD) (NEGATIVE) Result Diagrams: 12/24/20 21:20 12/24/20 21:20 Sepsis Event Note - Evaluation Sepsis Screening Result: Possible Severe Sepsis Risk - Focused Exam Vital Signs: Vital Signs Temp Temp Pulse Resp BP Pulse Ox 12/25/20 09:01 100.5 F 12/25/20 08:15 100.5 F 79 18 109/63 98 12/25/20 06:55 97.9 F 77 13 121/77 97 12/25/20 00:17 97.8 F 12/24/20 23:47 100.8 F H - Problem List (1) 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 SNOMED Code(s): 328653431, 805133792 ICD Code: C79.31 - SECONDARY MALIGNANT NEOPLASM OF BRAIN Status: Acute Priority: High Current Visit: Yes (2) Pneumonia SNOMED Code(s): 938694476 ICD Code: J18.9 - PNEUMONIA, UNSPECIFIED ORGANISM Status: Suspected Priority: High Current Visit: Yes Qualifiers: Pneumonia type: due to unspecified organism Laterality: right Lung location: lower lobe of lung Qualified Code(s): J18.9 - Pneumonia, unspecified organism (3) Liver metastases Status: Chronic Priority: High Current Visit: Yes (4) Lung metastases SNOMED Code(s): 34200364 ICD Code: C78.00 - SECONDARY MALIGNANT NEOPLASM OF UNSPECIFIED LUNG Status: Chronic Priority: High Current Visit: Yes Qualifiers: Laterality: unspecified laterality Qualified Code(s): C78.00 - Secondary malignant neoplasm of unspecified lung (5) Acute febrile illness SNOMED Code(s): 308750642 ICD Code: R50.9 - FEVER, UNSPECIFIED Status: Acute Priority: High Current Visit: Yes (6) History of seizures SNOMED Code(s): 437474759 ICD Code: Z87.898 - PERSONAL HISTORY OF OTHER SPECIFIED CONDITIONS Status: Chronic Priority: Medium Current Visit: Yes (7) Anxiety SNOMED Code(s): 72030805 ICD Code: F41.9 - ANXIETY DISORDER, UNSPECIFIED Status: Acute Priority: H igh Current Visit: Yes (8) Depression SNOMED Code(s): 35414074 ICD Code: F32.9 - MAJOR DEPRESSIVE DISORDER, SINGLE EPISODE, UNSPECIFIED Status: Chronic Priority: Medium Current Visit: Yes Qualifiers: Depression Type: other depression Qualified Code(s): F32.89 - Other specified depressive episodes (9) H/O Rosario thyroiditis SNOMED Code(s): 616698097 ICD Code: Z86.39 - PERSONAL HISTORY OF ENDO, NUTRITIONAL AND METABOLIC DISEASE Status: Chronic Priority: Low Current Visit: No (10) Generalized weakness SNOMED Code(s): 01622229 ICD Code: R53.1 - WEAKNESS Status: Acute Priority: High Current Visit: Yes (11) Confusion SNOMED Code(s): 385555647 ICD Code: R41.0 - DISORIENTATION, UNSPECIFIED Status: Acute Priority: High Current Visit: Yes (12) Hypothyroidism SNOMED Code(s): 41049759 ICD Code: E03.9 - HYPOTHYROIDISM, UNSPECIFIED Status: Chronic Priority: Low Current Visit: No Qualifiers: 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 Qualified Code(s): E03.8 - Other specified hypothyroidism; E06.3 - Autoimmune thyroiditis (13) Leukocytosis SNOMED Code(s): 629095705, 230661281 ICD Code: D72.829 - ELEVATED WHITE BLOOD CELL COUNT, UNSPECIFIED Status: Acute Priority: High Current Visit: Yes Qualifiers: Leukocytosis type: unspecified Qualified Code(s): D72.829 - Elevated white blood cell count, unspecified Problem List Initiated/Reviewed/Updated: Yes Orders Last 24hrs: Active Orders 24 hr Category Date Time Status Admission Status [Patient Status] [ADT] Routine ADT 12/25/20 08:46 Active BLOOD CULTURE [MREF] Stat Lab 12/24/20 21:20 Received BLOOD CULTURE [MREF] Stat Lab 12/24/20 21:30 Received Sodium Chloride 0.9% [Normal Saline] 1,000 ml Med 12/24/20 20:45 Active IV ASDIRECTED Blood Culture x2 Reflex Set [OM.PC] Stat Oth 12/24/20 20:55 Ordered Medication Orders Sodium Chloride (Normal Saline) 1,000 mls @ 100 mls/hr IV ASDIRECTED [facility] Last Admin: 12/24/20 21:21 Dose: 100 mls/hr Documented by: PAUL Assessment/Plan Comment:: Assessement - day of admission 12/25/2020 (presented to ED on 12/24/2020) * 60-year-old female who presents to ED due to confusion, weakness, and an episode of emesis * History of seizures, anxiety, depression, hypothyroidism, Rosario's thyroiditis, malignant brain melanoma * Had been walking and acting appropriately earlier in the day. * She has primary malignant melanoma of the brain which was diagnosed in [facility] in December 2019. * Reportedly had brain surgery to debulk the tumor and she had been receiving radiation treatments in [place] and recently in [place]. * Radiation oncology has been decreasing her dexamethasone treatments. * 12-lead EKG is obtained showing a sinus rhythm at 89 bpm with a left atrial hypertrophy pattern and decreased voltage in the limb leads with poor R wave progression. T wave flattening in aVL is also noted. * Labs are obtained: * WBC of 10.26. * Hemoglobin is 11.4. * She is macrocytic. * Platelet 273,000. * Neutrophils are elevated at 80.7%. * INR is 1.00. * aPTT is 23.1. * Sodium 136. * Potassium 3.7. * Chloride 98. * Carbon dioxide 28. * Anion gap is 13.7. * BUN is 17. Creatinine 0.6. GFR is greater than 60. * Glucose is 114. * Calcium 8.2. * Magnesium 2.1. * Total bilirubin 0.8. * AST is elevated at 211. ALT elevated at 430. Alkaline phosphatase elevated at 495. * CRP is 8.3. * Protein 6.3. * Albumin 2.9. * Lactic acid is 1.7. * GGT is 1096. * proBNP is 257. * Lipase is 96. * UA is negative. * SARS-CoV-2 RNA is negative. * She was noted to have absence of reflexes in all limbs in the ED Babinski was upgoing on both sides and pupils were equal and reactive. * Chest x-ray is obtained showing a focal density within the right lower lung which could represent a thick area of atelectasis as well as pneumonia if the patient has infectious symptoms. Difficult to completely exclude a more p roximal lesion causing postobstructive atelectasis. Chest CT was suggested. * CT of the abdomen and pelvis was obtained showing: * multiple nodules within the lungs as well as liver and left adrenal nodule. These findings are highly suspicious for metastatic disease. * There was a small breast nodule measuring 1 cm and mammographic study is recommended as well as right breast ultrasound. * There is slightly increased stool within the colon and other incidental findings as noted. * There is also a focal density within the right lung base, difficult to exclude area of pneumonia if patient has infectious symptoms. * Head CT was obtained showing * 1. Hyperdense lesion within the left posteromedial medial to the lateral left ventricle. This measures 2.5 x 4.1 cm. This has slightly increased in size from previous exam and is compatible with metastatic lesion. * 2. 2.2 cm mass within the midline pushing the third ventricle inferiorly. This shows decreased hemorrhage from prior exam but otherwise is stable. * 3. Vasogenic edema is noted on both sides which has improved on the left side and is stable in the right side. * 4. Small amount of acute blood is seen within the posterior right ventricle. * Dr. Waite, neurosurgeon on-call was contacted and he feels the condition is considered terminal. He reports steroids may help reduce the size of the bleed and swelling but will only help for short period of time. * Unfortunately no beds were available in the state or in our facility and the patient was boarded in the emergency room. * She was given Tylenol for her fever and started on Rocephin 2 g. She was also given metronidazole. 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 Patricia * Reports plan was to possibly start palliative biologic therapy given worsening findings on PET scan prior. * Agrees with plan of care * PT/OT * Fall precautions * Hospice consultation * SW/CM consultation * Aspiration precautions * Spiritual care consultation History of seizures * Continue home keppra * Continue home lamotrigine * Seizure precautions Anxiety Depression * No current home medications * Start Q4Hr 0.5mg Ativan for anxiety * Monitor Hypothyroidism H/O Rosario thyroiditis * Check TSH * Continue home levothyroxine Code status: DNR/DNI PCP: Dr. Blackwell Radiation oncologist: Dr. Sanabria Oncologist: Dr. Raza Neurologist: Dr. Desai DVT prophylaxis: ELIAS cruz (pharmacologic prophylaxis contraindicated due to patient's current bleeding tumor.) Social: Patient resides with Disposition: Patient admitted for further management of suspected pneumonia and assistance with continuing social needs. - Mortality Measure Prognosis:: Poor (Overall grim prognosis. Family and patient aware of severity of symptoms and prognosis.) <Daniela Borja - Last Filed: 12/25/20 15:59> H&P History of Present Illness - General Admit Problem/Dx: Admission Diagnosis/Problem Admission Diagnosis/Problem Pneumonia Exam - Vital Signs Vital Signs: Last Vital Signs Temp 100.2 F 12/25/20 09:33 Pulse 84 12/25/20 09:33 Resp 14 12/25/20 09:33 BP 104/60 12/25/20 09:33 Pulse Ox 100 12/25/20 09:33 - Patient Data Lab Results Last 24 hrs: Laboratory Results - last 24 hr 12/24/20 12/24/20 12/24/20 Range/Units 21:20 21:20 21:20 WBC 10.26 H (3.98-10.04) K/mm3 RBC 3.76 L (3.98-5.22) M/mm3 Hgb 11.4 (11.2-15.7) gm/dl Hct 35.7 (34.1-44.9) % MCV 94.9 H D (79.4-94.8) fl MCH 30.3 (25.6-32.2) pg MCHC 31.9 L (32.2-35.5) g/dl RDW Std Deviation 55.9 H (36.4-46.3) fL Plt Count 273 (182-369) K/mm3 MPV 9.5 (9.4-12.3) fl Neut % (Auto) 80.7 H (34.0-71.1) % Lymph % (Auto) 4.5 L (19.3-51.7) % Grady % (Auto) 10.9 (4.7-12.5) % Eos % (Auto) 0.1 L (0.7-5.8) Baso % (Auto) 0.2 (0.1-1.2) % Neut # (Auto) 8.28 H (1.56-6.13) K/mm3 Lymph # (Auto) 0.46 L (1.18-3.74) K/mm3 Grady # (Auto) 1.12 H (0.24-0.36) K/mm3 Eos # (Auto) 0.01 L (0.04-0.36) K/mm3 Baso # (Auto) 0.02 (0.01-0.08) K/mm3 Manual Slide Review Abnormal smear PT 10.7 (9.7-12.0) SECONDS INR 1.00 APTT 23.1 (21.7-31.4) SECONDS Sodium 136 (136-145) mEq/L Potassium 3.7 (3.5-5.1) mEq/L Chloride 98 (98-107) mEq/L Carbon Dioxide 28 (21-32) mEq/L Anion Gap 13.7 (5-15) BUN 17 (7-18) mg/dL Creatinine 0.6 (0.55-1.02) mg/dL Est Cr Clr Drug Dosing 90.95 mL/min Estimated GFR (MDRD) > 60 (>60) mL/min BUN/Creatinine Ratio 28.3 H (14-18) Glucose 114 H (70-99) mg/dL POC Glucose (70-99) mg/dL Lactic Acid (0.4-2.0) mmol/L Calcium 8.2 L (8.5-10.1) mg/dL Magnesium 2.1 (1.8-2.4) mg/dL Total Bilirubin 0.8 (0.2-1.0) mg/dL GGT (5-55) U/L AST 211 H (15-37) U/L ALT 430 H (14-59) U/L Alkaline Phosphatase 495 H (46-116) U/L C-Reactive Protein 8.3 H* (<1.0) mg/dL NT-Pro-B Natriuret Pep (0-125) pg/mL Total Protein 6.3 L (6.4-8.2) g/dl Albumin 2.9 L (3.4-5.0) g/dl Globulin 3.4 gm/dL Albumin/Globulin Ratio 0.9 L (1-2) Lipase (73-393) U/L Urine Color (Yellow) Urine Appearance (Clear) Urine pH (5.0-8.0) Ur Specific [place] (1.005-1.030) Urine Protein (Negative) Urine Glucose (UA) (Negative) Urine Ketones (Negative) Urine Occult Blood (Negative) Urine Nitrite (Negative) Urine Bilirubin (Negative) Urine Urobilinogen (0.2-1.0) Ur Leukocyte Esterase (Negative) Urine RBC (0-5) /hpf Urine WBC (0-5) /hpf Ur Squamous Epith Cells (0-5) /hpf Urine Bacteria (FEW) /hpf Urine Mucus (FEW) /hpf SARS-CoV-2 RNA (EYAD) (NEGATIVE) 12/24/20 12/24/20 12/24/20 Range/Units 21:20 21:20 21:20 WBC (3.98-10.04) K/mm3 RBC (3.98-5.22) M/mm3 Hgb (11.2-15.7) gm/dl Hct (34.1-44.9) % MCV (79.4-94.8) fl MCH (25.6-32.2) pg MCHC (32.2-35.5) g/dl RDW Std Deviation (36.4-46.3) fL Plt Count (182-369) K/mm3 MPV (9.4-12.3) fl Neut % (Auto) (34.0-71.1) % Lymph % (Auto) (19.3-51.7) % Grady % (Auto) (4.7-12.5) % Eos % (Auto) (0.7-5.8) Baso % (Auto) (0.1-1.2) % Neut # (Auto) (1.56-6.13) K/mm3 Lymph # (Auto) (1.18-3.74) K/mm3 [place]ady # (Auto) (0.24-0.36) K/mm3 Eos # (Auto) (0.04-0.36) K/mm3 Baso # (Auto) (0.01-0.08) K/mm3 Manual Slide Review PT (9.7-12.0) SECONDS INR APTT (21.7-31.4) SECONDS Sodium (136-145) mEq/L Potassium (3.5-5.1) mEq/L Chloride (98-107) mEq/L Carbon Dioxide (21-32) mEq/L Anion Gap (5-15) BUN (7-18) mg/dL Creatinine (0.55-1.02) mg/dL Est Cr Clr Drug Dosing mL/min Estimated GFR (MDRD) (>60) mL/min BUN/Creatinine Ratio (14-18) Glucose (70-99) mg/dL POC Glucose (70-99) mg/dL Lactic Acid 1.7 (0.4-2.0) mmol/L Calcium (8.5-10.1) mg/dL Magnesium (1.8-2.4) mg/dL Total Bilirubin (0.2-1.0) mg/dL GGT 1096 H (5-55) U/L AST (15-37) U/L ALT (14-59) U/L Alkaline Phosphatase (46-116) U/L C-Reactive Protein (<1.0) mg/dL NT-Pro-B Natriuret Pep 257 H (0-125) pg/mL Total Protein (6.4-8.2) g/dl Albumin (3.4-5.0) g/dl Globulin gm/dL Albumin/Globulin Ratio (1-2) Lipase (73-393) U/L Urine Color (Yellow) Urine Appearance (Clear) Urine pH (5.0-8.0) Ur Specific [place] (1.005-1.030) Urine Protein (Negative) Urine Glucose (UA) (Negative) Urine Ketones (Negative) Urine Occult Blood (Negative) Urine Nitrite (Negative) Urine Bilirubin (Negative) Urine Urobilinogen (0.2-1.0) Ur Leukocyte Esterase (Negative) Urine RBC (0-5) /hpf Urine WBC (0-5) /hpf Ur Squamous Epith Cells (0-5) /hpf Urine Bacteria (FEW) /hpf Urine Mucus (FEW) /hpf SARS-CoV-2 RNA (EYAD) (NEGATIVE) 12/24/20 12/24/20 12/25/20 Range/Units 21:20 22:30 00:02 WBC (3.98-10.04) K/mm3 RBC (3.98-5.22) M/mm3 Hgb (11.2-15.7) gm/dl Hct (34.1-44.9) % MCV (79.4-94.8) fl MCH (25.6-32.2) pg MCHC (32.2-35.5) g/dl RDW Std Deviation (36.4-46.3) fL Plt Count (182-369) K/mm3 MPV (9.4-12.3) fl Neut % (Auto) (34.0-71.1) % Lymph % (Auto) (19.3-51.7) % Grady % (Auto) (4.7-12.5) % Eos % (Auto) (0.7-5.8) Baso % (Auto) (0.1-1.2) % Neut # (Auto) (1.56-6.13) K/mm3 Lymph # (Auto) (1.18-3.74) K/mm3 [place] # (Auto) (0.24-0.36) K/mm3 Eos # (Auto) (0.04-0.36) K/mm3 Baso # (Auto) (0.01-0.08) K/mm3 Manual Slide Review PT (9.7-12.0) SECONDS INR APTT (21.7-31.4) SECONDS Sodium (136-145) mEq/L Potassium (3.5-5.1) mEq/L Chloride (98-107) mEq/L Carbon Dioxide (21-32) mEq/L Anion Gap (5-15) BUN (7-18) mg/dL Creatinine (0.55-1.02) mg/dL Est Cr Clr Drug Dosing mL/min Estimated GFR (MDRD) (>60) mL/min BUN/Creatinine Ratio (14-18) Glucose (70-99) mg/dL POC Glucose (70-99) mg/dL Lactic Acid (0.4-2.0) mmol/L Calcium (8.5-10.1) mg/dL Magnesium (1.8-2.4) mg/dL Total Bilirubin (0.2-1.0) mg/dL GGT (5-55) U/L AST (15-37) U/L ALT (14-59) U/L Alkaline Phosphatase (46-116) U/L C-Reactive Protein (<1.0) mg/dL NT-Pro-B Natriuret Pep (0-125) pg/mL Total Protein (6.4-8.2) g/dl Albumin (3.4-5.0) g/dl Globulin gm/dL Albumin/Globulin Ratio (1-2) Lipase 96 (73-393) U/L Urine Color Yellow (Yellow) Urine Appearance Clear (Clear) Urine pH 7.5 (5.0-8.0) Ur Specific [place] 1.020 (1.005-1.030) Urine Protein 1+ H (Negative) Urine Glucose (UA) Negative (Negative) Urine Ketones Negative (Negative) Urine Occult Blood Negative (Negative) Urine Nitrite Negative (Negative) Urine Bilirubin Negative (Negative) Urine Urobilinogen 1.0 (0.2-1.0) Ur Leukocyte Esterase Negative (Negative) Urine RBC Not seen (0-5) /hpf Urine WBC Not seen (0-5) /hpf Ur Squamous Epith Cells 0-5 (0-5) /hpf Urine Bacteria Rare (FEW) /hpf Urine Mucus Few (FEW) /hpf SARS-CoV-2 RNA (EYAD) Negative (NEGATIVE) 12/25/20 Range/Units 04:48 WBC (3.98-10.04) K/mm3 RBC (3.98-5.22) M/mm3 Hgb (11.2-15.7) gm/dl Hct (34.1-44.9) % MCV (79.4-94.8) fl MCH (25.6-32.2) pg MCHC (32.2-35.5) g/dl RDW Std Deviation (36.4-46.3) fL Plt Count (182-369) K/mm3 MPV (9.4-12.3) fl Neut % (Auto) (34.0-71.1) % Lymph % (Auto) (19.3-51.7) % [place] % (Auto) (4.7-12.5) % Eos % (Auto) (0.7-5.8) Baso % (Auto) (0.1-1.2) % Neut # (Auto) (1.56-6.13) K/mm3 Lymph # (Auto) (1.18-3.74) K/mm3 [place] # (Auto) (0.24-0.36) K/mm3 Eos # (Auto) (0.04-0.36) K/mm3 Baso # (Auto) (0.01-0.08) K/mm3 Manual Slide Review PT (9.7-12.0) SECONDS INR APTT (21.7-31.4) SECONDS Sodium (136-145) mEq/L Potassium (3.5-5.1) mEq/L Chloride (98-107) mEq/L Carbon Dioxide (21-32) mEq/L Anion Gap (5-15) BUN (7-18) mg/dL Creatinine (0.55-1.02) mg/dL Est Cr Clr Drug Dosing mL/min Estimated GFR (MDRD) (>60) mL/min BUN/Creatinine Ratio (14-18) Glucose (70-99) mg/dL POC Glucose 167 H (70-99) mg/dL Lactic Acid (0.4-2.0) mmol/L Calcium (8.5-10.1) mg/dL Magnesium (1.8-2.4) mg/dL Total Bilirubin (0.2-1.0) mg/dL GGT (5-55) U/L AST (15-37) U/L ALT (14-59) U/L Alkaline Phosphatase (46-116) U/L C-Reactive Protein (<1.0) mg/dL NT-Pro-B Natriuret Pep (0-125) pg/mL Total Protein (6.4-8.2) g/dl Albumin (3.4-5.0) g/dl Globulin gm/dL Albumin/Globulin Ratio (1-2) Lipase (73-393) U/L Urine Color (Yellow) Urine Appearance (Clear) Urine pH (5.0-8.0) Ur Specific [place] (1.005-1.030) Urine Protein (Negative) Urine Glucose (UA) (Negative) Urine Ketones (Negative) Urine Occult Blood (Negative) Urine Nitrite (Negative) Urine Bilirubin (Negative) Urine Urobilinogen (0.2-1.0) Ur Leukocyte Esterase (Negative) Urine RBC (0-5) /hpf Urine WBC (0-5) /hpf Ur Squamous Epith Cells (0-5) /hpf Urine Bacteria (FEW) /hpf Urine Mucus (FEW) /hpf SARS-CoV-2 RNA (EYAD) (NEGATIVE) Result Diagrams: 12/24/20 21:20 12/24/20 21:20 Sepsis Event Note - Focused Exam Vital Signs: Vital Signs Temp Temp Pulse Pulse Resp BP BP 12/25/20 09:33 100.2 F 84 14 104/60 12/25/20 09:01 100.5 F 12/25/20 08:15 100.5 F 79 18 109/63 12/25/20 06:55 97.9 F 77 13 121/77 Pulse Ox 12/25/20 09:33 100 12/25/20 09:01 12/25/20 08:15 98 12/25/20 06:55 97 Orders Last 24hrs: Active Orders 24 hr Category Date Time Status Patient Status [ADT] Routine ADT 12/25/20 10:02 Active Antiembolic Devices [RC] PER UNIT ROUTINE Care 12/25/20 13:16 Active Aspiration Precautions [RC] ASDIRECTED Care 12/25/20 14:50 Active Bedrest Bedside Commode [RC] ASDIRECTED Care 12/25/20 09:34 Active Cardiac Monitoring [RC] CONTINUOUS Care 12/25/20 09:35 Active Height and Weight [RC] 06 Care 12/25/20 09:34 Active Intake and Output [RC] 04,16 Care 12/25/20 09:35 Active Oxygen Therapy [RC] ASDIRECTED Care 12/25/20 09:35 Active Pulse Oximetry [RC] PRN Care 12/25/20 09:35 Active RT Aerosol Therapy [RC] ASDIRECTED Care 12/25/20 09:36 Active RT Chest Physiotherapy [RC] ASDIRECTED Care 12/25/20 09:34 Active RT Incentive Spirometry [RC] ASDIRECTED Care 12/25/20 09:34 Active Vital Signs [RC] Q6HR Care 12/25/20 09:35 Active Consult to Case Management/Subway Operator [CONS] Cons 12/25/20 09:34 Active Routine Consult to Hospice [CONS] Routine Cons 12/25/20 10:06 Ordered Consult to Occupational Therapy [OT Evaluation and Cons 12/25/20 14:51 Active Treatment] [CONS] Routine Consult to Spiritual Care [CONS] Routine Cons 12/25/20 09:34 Active PT Evaluation and Treatment [CONS] Routine Cons 12/25/20 14:51 Active Regular Diet [DIET] Diet 12/25/20 Lunch Active BLOOD CULTURE [MREF] Stat Lab 12/24/20 21:20 Received BLOOD CULTURE [MREF] Stat Lab 12/24/20 21:30 Received CBC WITH AUTO DIFF [HEME] AM Lab 12/26/20 05:11 Ordered CBC WITH AUTO DIFF [HEME] AM Lab 12/27/20 05:11 Ordered CBC WITH AUTO DIFF [HEME] AM Lab 12/28/20 05:11 Ordered CBC WITH AUTO DIFF [HEME] AM Lab 12/29/20 05:11 Ordered CMP [COMPREHENSIVE METABOLIC PN,CMP] [CHEM] AM Lab 12/26/20 05:11 Ordered CMP [COMPREHENSIVE METABOLIC PN,CMP] [CHEM] AM Lab 12/27/20 05:11 Ordered CMP [COMPREHENSIVE METABOLIC PN,CMP] [CHEM] AM Lab 12/28/20 05:11 Ordered CMP [COMPREHENSIVE METABOLIC PN,CMP] [CHEM] AM Lab 12/29/20 05:11 Ordered CRP [C-REACTIVE PROTEIN] [CHEM] AM Lab 12/26/20 05:11 Ordered CRP [C-REACTIVE PROTEIN] [CHEM] AM Lab 12/27/20 05:11 Ordered CRP [C-REACTIVE PROTEIN] [CHEM] AM Lab 12/28/20 05:11 Ordered CRP [C-REACTIVE PROTEIN] [CHEM] AM Lab 12/29/20 05:11 Ordered MAGNESIUM [CHEM] AM Lab 12/26/20 05:11 Ordered MAGNESIUM [CHEM] AM Lab 12/27/20 05:11 Ordered MAGNESIUM [CHEM] AM Lab 12/28/20 05:11 Ordered MAGNESIUM [CHEM] AM Lab 12/29/20 05:11 Ordered PROCALCITONIN [REF] Routine Lab 12/25/20 14:45 Ordered TSH [CHEM] Routine Lab 12/25/20 14:45 Ordered Acetaminophen [TylenoL] Med 12/25/20 09:34 Active 650 mg PO Q4H PRN Acetaminophen [Tylenol] Med 12/25/20 09:34 Active 650 mg RECTAL Q4H PRN Albuterol/Ipratropium [DuoNeb 3.0-0.5 MG/3 ML] Med 12/25/20 09:34 Active 3 ml NEB QIDRT PRN Desvenlafaxine [Desvenlafaxine ER] Med 12/26/20 09:00 Active 50 mg PO DAILY LORazepam [Ativan] Med 12/25/20 11:17 Active 0.5 mg IVPUSH Q4H PRN LORazepam [Ativan] Med 12/25/20 15:12 Active 2 mg IVPUSH Q4H PRN Lactated Ringers [Ringers, Lactated] 1,000 ml Med 12/25/20 14:45 Active IV ASDIRECTED Levothyroxine [Synthroid] Med 12/26/20 07:00 Active 100 mcg PO DAILY@0700 Morphine Med 12/25/20 09:34 Active 2 mg IVPUSH Q2H PRN Ondansetron [Zofran] Med 12/25/20 09:34 Active 4 mg IV Q6H PRN Piperacillin/Tazobactam [Piperacil-Tazobact] 4.5 gm Med 12/25/20 18:00 Active Sodium Chloride 0.9% [Normal Saline] 100 ml IV Q8H dexAMETHasone Med 12/26/20 09:00 Active 6 mg PO DAILY lamoTRIgine Med 12/25/20 21:00 Once 25 mg PO ONETIME ONE lamoTRIgine Med 12/26/20 09:00 Active 50 mg PO BID levETIRAcetam [Keppra] Med 12/25/20 21:00 Active 500 mg PO BID Blood Culture x2 Reflex Set [OM.PC] Stat Oth 12/24/20 20:55 Ordered Precautions [COMM] Routine Oth 12/25/20 09:37 Ordered Seizure Precautions [OM.PC] Routine Oth 12/25/20 14:50 Ordered ELIAS Hose [Antiembolic Hose] [OM.PC] Routine Oth 12/25/20 13:16 Ordered VTE Pharmacological Contraindications [AST] Per Unit Oth 12/25/20 09:34 Ordered Routine Resuscitation Status Routine Resus Stat 12/25/20 09:34 Ordered Medication Orders Acetaminophen (Acetaminophen 325 Mg Tab) 650 mg PO Q4H PRN PRN Reason: Pain (Mild 1-3)/fever Acetaminophen (Acetaminophen 650 Mg Supp) 650 mg RECTAL Q4H PRN PRN Reason: Pain (mild 1-3) Albuterol/Ipratropium (Albuterol/Ipratropium 3.0-0.5 Mg/3 Ml Neb Soln) 3 ml NEB QIDRT PRN PRN Reason: Shortness Of Breath/wheezing Dexamethasone (Dexamethasone 4 Mg Tab) 6 mg PO DAILY [facility] Piperacillin Sod/Tazobactam (Sod 4.5 gm/ Sodium Chloride) 100 mls @ 25 mls/hr IV Q8H LEÓN Lactated Ringer's (Ringers, Lactated) 1,000 mls @ 60 mls/hr IV ASDIRECTED [facility] Lamotrigine (Lamotrigine 25 Mg Tab.Chew) 25 mg PO ONETIME ONE Stop: 12/25/20 21:01 Lamotrigine (Lamotrigine 25 Mg Tab.Chew) 50 mg PO BID [facility] Levetiracetam (Levetiracetam 500 Mg Tab) 500 mg PO BID [facility] Levothyroxine Sodium (Levothyroxine 100 Mcg Tab) 100 mcg PO DAILY@0700 [facility] Lorazepam (Lorazepam 2 Mg/Ml Sdv) 0.5 mg IVPUSH Q4H PRN PRN Reason: Anxiety Lorazepam (Lorazepam 2 Mg/Ml Sdv) 2 mg IVPUSH Q4H PRN PRN Reason: Seizures Morphine Sulfate (Morphine 2 Mg/Ml Syringe) 2 mg IVPUSH Q2H PRN PRN Reason: Pain (severe 7-10) Stop: 12/26/20 09:36 Desvenlafaxine Er 50 Mg Tab.Er.24h Ptom 50 mg PO DAILY [facility] Ondansetron HCl (Ondansetron 4 Mg/2 Ml Sdv) 4 mg IV Q6H PRN PRN Reason: Nausea/Vomiting Assessment/Plan Comment:: 12/25/20 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 PE: [id number], resp Course B/L abd: s/nt/nd, ext : no edema
[2020-12-25] MEDS ORDERED: Albuterol/Ipratropium 3.0-0.5 MG/3 ML Neb Soln NEB PRN (09:34)
[2020-12-25] MEDS ORDERED: Acetaminophen 650 MG Supp RECTAL PRN (09:34)
[2020-12-25] MEDS ORDERED: Ondansetron 4 MG/2 ML SDV IV PRN (09:34)
[2020-12-25] MEDS ORDERED: Morphine 2 MG/ML SYRINGE IVPUSH PRN (09:34)
[2020-12-25] MEDS ORDERED: Piperacillin/Tazobactam 4.5 GM in Sodium Chloride 0.9% 100 ML IV ONE (10:00)
[2020-12-25] MEDS: Sodium Chloride 0.9% 1,000 ML IV SCH (10:30)
[2020-12-25] MEDS ORDERED: LORazepam 2 MG/ML SDV IVPUSH PRN ×2 (11:17→15:12)
[2020-12-25] MEDS ORDERED: Lactated Ringers 1,000 ML IV SCH (14:45)
[2020-12-25] MEDS: Piperacillin/Tazobactam 4.5 GM in Sodium Chloride 0.9% 100 ML IV SCH (17:37)
[2020-12-25] MEDS: levETIRAcetam 500 MG Tab PO SCH (20:45)
[2020-12-26] MEDS: Piperacillin/Tazobactam 4.5 GM in Sodium Chloride 0.9% 100 ML IV SCH ×3 (01:43→17:11)
[2020-12-26] MEDS: Levothyroxine 100 MCG Tab PO SCH (06:16)
--- NOTE | 2020-12-26 07:17 | PCM.PN ---
<Juwan Ny - Last Filed: 12/26/20 13:54> - General Info Date of Service: 12/26/20 Admission Dx/Problem (Free Text): Admission Diagnosis/Problem Admission Diagnosis/Problem Pneumonia Functional Status: Reports: Pain Controlled, Tolerating Diet, Ambulating, Urinating, Incentive Spirometry, Other (Acapella ). Denies: New Symptoms - Review of Systems General: Reports: Weakness, Fatigue, Malaise. Denies: Fever, Chills HEENT: Reports: No Symptoms. Denies: Headaches Pulmonary: Reports: No Symptoms. Denies: Shortness of Breath, Cough, Sputum, Wheezing Cardiovascular: Reports: No Symptoms. Denies: Palpitations, Edema Gastrointestinal: Reports: No Symptoms. Denies: Abdominal Pain, Constipation, D iarrhea, Nausea, Vomiting Genitourinary: Reports: No Symptoms. Denies: Pain Musculoskeletal: Reports: No Symptoms Skin: Reports: No Symptoms. Denies: Cyanosis Neurological: Reports: Confusion, Difficulty Walking, Weakness, Gait Disturbance. Denies: Dizziness, Headache, Numbness, Seizure, Syncope, Tingling, Tremors, Change in Speech Psychiatric: Reports: No Symptoms - Patient Data Vitals - Most Recent: Last Vital Signs Temp 98.4 F 12/26/20 06:21 Pulse 72 12/26/20 06:21 Resp 18 12/26/20 06:21 BP 98/51 L 12/26/20 06:21 Pulse Ox 100 12/26/20 06:21 Weight - Most Recent: 134 lb I&O - Last 24 Hours: Intake & Output 12/25/20 12/26/20 12/26/20 22:59 06:59 14:59 Intake Total 1000 520 Output Total 450 625 Balance 550 -105 Lab Results Last 24 Hours: Laboratory Results - last 24 hr 12/24/20 12/26/20 12/26/20 Range/Units 21:20 04:51 04:51 WBC 9.27 (3.98-10.04) K/mm3 RBC 3.24 L (3.98-5.22) M/mm3 Hgb 9.8 L D (11.2-15.7) gm/dl Hct 30.9 L (34.1-44.9) % MCV 95.4 H (79.4-94.8) fl MCH 30.2 (25.6-32.2) pg MCHC 31.7 L (32.2-35.5) g/dl RDW Std Deviation 54.4 H (36.4-46.3) fL Plt Count 246 (182-369) K/mm3 MPV 9.9 (9.4-12.3) fl Neut % (Auto) 80.4 H (34.0-71.1) % Lymph % (Auto) 6.1 L (19.3-51.7) % Harvey % (Auto) 11.8 (4.7-12.5) % Eos % (Auto) 0.2 L (0.7-5.8) Baso % (Auto) 0.1 (0.1-1.2) % Neut # (Auto) 7.45 H (1.56-6.13) K/mm3 Lymph # (Auto) 0.57 L (1.18-3.74) K/mm3 Harvey # (Auto) 1.09 H (0.24-0.36) K/mm3 Eos # (Auto) 0.02 L (0.04-0.36) K/mm3 Baso # (Auto) 0.01 (0.01-0.08) K/mm3 Sodium 139 (136-145) mEq/L Potassium 3.3 L (3.5-5.1) mEq/L Chloride 105 (98-107) mEq/L Carbon Dioxide 21 (21-32) mEq/L Anion Gap 16.3 H (5-15) BUN 12 (7-18) mg/dL Creatinine 0.6 (0.55-1.02) mg/dL Est Cr Clr Drug Dosing 89.12 mL/min Estimated GFR (MDRD) > 60 (>60) mL/min BUN/Creatinine Ratio 20.0 H (14-18) Glucose 96 (70-99) mg/dL Calcium 7.6 L (8.5-10.1) mg/dL Magnesium 2.0 (1.8-2.4) mg/dL Total Bilirubin 0.7 (0.2-1.0) mg/dL AST 108 H (15-37) U/L ALT 323 H (14-59) U/L Alkaline Phosphatase 354 H (46-116) U/L C-Reactive Protein 4.7 H* (<1.0) mg/dL Total Protein 5.3 L (6.4-8.2) g/dl Albumin 2.2 L (3.4-5.0) g/dl Globulin 3.1 gm/dL Albumin/Globulin Ratio 0.7 L (1-2) TSH 3rd Generation 2.701 (0.358-3.74) uIU/mL Med Orders - Current: Current Medications Acetaminophen (Acetaminophen 325 Mg Tab) 650 mg PO Q4H PRN PRN Reason: Pain (Mild 1-3)/fever Acetaminophen (Acetaminophen 650 Mg Supp) 650 mg RECTAL Q4H PRN PRN Reason: Pain (mild 1-3) Albuterol/Ipratropium (Albuterol/Ipratropium 3.0-0.5 Mg/3 Ml Neb Soln) 3 ml NEB QIDRT PRN PRN Reason: Shortness Of Breath/wheezing Dexamethasone (Dexamethasone 4 Mg Tab) 6 mg PO DAILY [facility] Piperacillin Sod/Tazobactam (Sod 4.5 gm/ Sodium Chloride) 100 mls @ 25 mls/hr IV Q8H [facility] Last Admin: 12/26/20 01:43 Dose: 25 mls/hr Documented by: Lactated Ringer's (Ringers, Lactated) 1,000 mls @ 60 mls/hr IV ASDIRECTED [facility] Last Admin: 12/25/20 15:55 Dose: 60 mls/hr Documented by: Lamotrigine (Lamotrigine 25 Mg Tab.Chew) 50 mg PO BID [facility] Levetiracetam (Levetiracetam 500 Mg Tab) 500 mg PO BID [facility] Last Admin: 12/25/20 20:45 Dose: Not Given Documented by: Levothyroxine Sodium (Levothyroxine 100 Mcg Tab) 100 mcg PO DAILY@0700 [facility] Last Admin: 12/26/20 06:16 Dose: 100 mcg Documented by: Lorazepam (Lorazepam 2 Mg/Ml Sdv) 0.5 mg IVPUSH Q4H PRN PRN Reason: Anxiety Lorazepam (Lorazepam 2 Mg/Ml Sdv) 2 mg IVPUSH Q4H PRN PRN Reason: Seizures Morphine Sulfate (Morphine 2 Mg/Ml Syringe) 2 mg IVPUSH Q2H PRN PRN Reason: Pain (severe 7-10) Stop: 12/26/20 09:36 Desvenlafaxine Er 50 Mg Tab.Er.24h Ptom 50 mg PO DAILY [facility] Ondansetron HCl (Ondansetron 4 Mg/2 Ml Sdv) 4 mg IV Q6H PRN PRN Reason: Nausea/Vomiting Discontinued Medications Acetaminophen (Acetaminophen 325 Mg Tab) 975 mg PO ONETIME ONE Stop: 12/24/20 23:05 Last Admin: 12/24/20 23:48 Dose: Not Given Documented by: Acetaminophen (Acetaminophen 650 Mg Supp) Confirm Administered Dose 650 mg .ROUTE .STK-MED ONE Stop: 12/24/20 23:37 Last Admin: 12/24/20 23:47 Dose: Not Given Documented by: Acetaminophen (Acetaminophen 650 Mg Supp) 650 mg RECTAL NOW ONE Stop: 12/24/20 23:48 Last Admin: 12/24/20 23:47 Dose: 650 mg Documented by: Acetaminophen (Acetaminophen 325 Mg Tab) 650 mg PO NOW ONE Stop: 12/25/20 08:58 Last Admin: 12/25/20 09:01 Dose: 650 mg Documented by: Dexamethasone (Dexamethasone 10 Mg/Ml Sdv) 6 mg IVPUSH ONETIME ONE Stop: 12/24/20 22:57 Last Admin: 12/24/20 23:44 Dose: 6 mg Documented by: Diphenhydramine HCl (Diphenhydramine 50 Mg/Ml Sdv) 12.5 mg IVPUSH ONETIME ONE Stop: 12/24/20 20:46 Last Admin: 12/24/20 21:22 Dose: 12.5 mg Documented by: Sodium Chloride (Normal Saline) 1,000 mls @ 100 mls/hr IV ASDIRECTED [facility] Last Admin: 12/25/20 10:30 Dose: 100 mls/hr Documented by: Ceftriaxone Sodium 2 gm/ (Sodium Chloride) 100 mls @ 200 mls/hr IV ONETIME ONE Stop: 12/24/20 23:26 Last Admin: 12/24/20 23:45 Dose: 200 mls/hr Documented by: Metronidazole 500 mg/ Premix 100 mls @ 100 mls/hr IV ONETIME ONE Stop: 12/25/20 01:21 Last Admin: 12/25/20 04:38 Dose: Not Given Documented by: Levetiracetam 500 mg/ Sodium (Chloride) 105 mls @ 400 mls/hr IV ONETIME ONE Stop: 12/25/20 05:53 Last Admin: 12/25/20 06:09 Dose: 400 mls/hr Documented by: Piperacillin Sod/Tazobactam (Sod 4.5 gm/ Sodium Chloride) 100 mls @ 200 mls/hr IV ONETIME ONE Stop: 12/25/20 10:29 Last Admin: 12/25/20 10:30 Dose: 200 mls/hr Documented by: Lamotrigine (Lamotrigine 25 Mg Tab.Chew) 25 mg PO ONETIME ONE Stop: 12/25/20 21:01 Last Admin: 12/25/20 20:45 Dose: Not Given Documented by: Metoclopramide HCl (Metoclopramide 10 Mg/2 Ml Sdv) 7.5 mg IVPUSH ONETIME ONE Stop: 12/24/20 20:46 Last Admin: 12/24/20 21:22 Dose: 7.5 mg Documented by: - Exam Quality Assessment: DVT Prophylaxis (ELIAS cruz ). No: Supplemental Oxygen, Urine Catheter General: Alert, Oriented, Cooperative, No Acute Distress HEENT: Pupils Equal, Pupils Reactive Neck: Supple, Trachea Midline Lungs: Clear to Auscultation, Normal Respiratory Effort Cardiovascular: Regular Rate, Regular Rhythm GI/Abdominal Exam: Normal Bowel Sounds, Soft, Non-Tender, No Distention (Female) Exam: Deferred Back Exam: Normal Inspection, Full Range of Motion Extremities: Normal Inspection, Normal Range of Motion, Non-Tender, No Pedal Edema, Normal Capillary Refill Peripheral Pulses: 4+: Radial (L), Radial (R), Dorsalis Pedis (L), Dorsalis Pedis (R) Skin: Warm, Dry, Intact Neurological: No New Focal Deficit Psy/Mental Status: Alert, Anxious, Depressed - Patient Data Lab Results Last 24 hrs: Laboratory Results - last 24 hr 12/24/20 12/26/20 12/26/20 Range/Units 21:20 04:51 04:51 WBC 9.27 (3.98-10.04) K/mm3 RBC 3.24 L (3.98-5.22) M/mm3 Hgb 9.8 L D (11.2-15.7) gm/dl Hct 30.9 L (34.1-44.9) % MCV 95.4 H (79.4-94.8) fl MCH 30.2 (25.6-32.2) pg MCHC 31.7 L (32.2-35.5) g/dl RDW Std Deviation 54.4 H (36.4-46.3) fL Plt Count 246 (182-369) K/mm3 MPV 9.9 (9.4-12.3) fl Neut % (Auto) 80.4 H (34.0-71.1) % Lymph % (Auto) 6.1 L (19.3-51.7) % Harvey % (Auto) 11.8 (4.7-12.5) % Eos % (Auto) 0.2 L (0.7-5.8) Baso % (Auto) 0.1 (0.1-1.2) % Neut # (Auto) 7.45 H (1.56-6.13) K/mm3 Lymph # (Auto) 0.57 L (1.18-3.74) K/mm3 Harvey # (Auto) 1.09 H (0.24-0.36) K/mm3 Eos # (Auto) 0.02 L (0.04-0.36) K/mm3 Baso # (Auto) 0.01 (0.01-0.08) K/mm3 Sodium 139 (136-145) mEq/L Potassium 3.3 L (3.5-5.1) mEq/L Chloride 105 (98-107) mEq/L Carbon Dioxide 21 (21-32) mEq/L Anion Gap 16.3 H (5-15) BUN 12 (7-18) mg/dL Creatinine 0.6 (0.55-1.02) mg/dL Est Cr Clr Drug Dosing 89.12 mL/min Estimated GFR (MDRD) > 60 (>60) mL/min BUN/Creatinine Ratio 20.0 H (14-18) Glucose 96 (70-99) mg/dL Calcium 7.6 L (8.5-10.1) mg/dL Magnesium 2.0 (1.8-2.4) mg/dL Total Bilirubin 0.7 (0.2-1.0) mg/dL AST 108 H (15-37) U/L ALT 323 H (14-59) U/L Alkaline Phosphatase 354 H (46-116) U/L C-Reactive Protein 4.7 H* (<1.0) mg/dL Total Protein 5.3 L (6.4-8.2) g/dl Albumin 2.2 L (3.4-5.0) g/dl Globulin 3.1 gm/dL Albumin/Globulin Ratio 0.7 L (1-2) TSH 3rd Generation 2.701 (0.358-3.74) uIU/mL Result Diagrams: 12/26/20 04:51 12/26/20 04:51 Sepsis Event Note - Evaluation Sepsis Screening Result: No Definite Risk - Focused Exam Vital Signs: Vital Signs Temp Pulse Resp BP Pulse Ox 12/26/20 06:21 98.4 F 72 18 98/51 L 100 - Problem List & Annotations (1) 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 SNOMED Code(s): 139839142, 133224063 Code(s): C79.31 - SECONDARY MALIGNANT NEOPLASM OF BRAIN Status: Acute Priority: High Current Visit: Yes (2) Pneumonia SNOMED Code(s): 477866658 Code(s): J18.9 - PNEUMONIA, UNSPECIFIED ORGANISM Status: Suspected Priority: High Current Visit: Yes Qualifiers: Pneumonia type: due to unspecified organism Laterality: right Lung location: lower lobe of lung Qualified Code(s): J18.9 - Pneumonia, unspecified organism (3) Liver metastases Status: Chronic Priority: High Current Visit: Yes (4) Lung metastases SNOMED Code(s): 26058988 Code(s): C78.00 - SECONDARY MALIGNANT NEOPLASM OF UNSPECIFIED LUNG Status: Chronic Priority: High Current Visit: Yes Qualifiers: Laterality: unspecified laterality Qualified Code(s): C78.00 - Secondary malignant neoplasm of unspecified lung (5) Acute febrile illness SNOMED Code(s): 243423182 Code(s): R50.9 - FEVER, UNSPECIFIED Status: Acute Priority: High Current Visit: Yes (6) History of seizures SNOMED Code(s): 897556642 Code(s): Z87.898 - PERSONAL HISTORY OF OTHER SPECIFIED CONDITIONS Status: Chronic Priority: Medium Current Visit: Yes (7) Anxiety SNOMED Code(s): 47970085 Code(s): F41.9 - ANXIETY DISORDER, UNSPECIFIED Status: Acute Priority: High Current Visit: Yes (8) Depression SNOMED Code(s): 07440995 Code(s): F32.9 - MAJOR DEPRESSIVE DISORDER, SINGLE EPISODE, UNSPECIFIED Status: Chronic Priority: Medium Current Visit: Yes Qualifiers: Depression Type: other depression Qualified Code(s): F32.89 - Other specified depressive episodes (9) H/O Rosario thyroiditis SNOMED Code(s): 641451897 Code(s): Z86.39 - PERSONAL HISTORY OF ENDO, NUTRITIONAL AND METABOLIC DISEASE Status: Chronic Priority: Low Current Visit: No (10) Generalized weakness SNOMED Code(s): 20205201 Code(s): R53.1 - WEAKNESS Status: Acute Priority: High Current Visit: Yes (11) Confusion SNOMED Code(s): 446476257 Code(s): R41.0 - DISORIENTATION, UNSPECIFIED Status: Acute Priority: High Current Visit: Yes (12) Hypothyroidism SNOMED Code(s): 32682749 Code(s): E03.9 - HYPOTHYROIDISM, UNSPECIFIED Status: Chronic Priority: Low Current Visit: No Qualifiers: 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 Qualified Code(s): E03.8 - Other specified hypothyroidism; E06.3 - Autoimmune thyroiditis (13) Leukocytosis SNOMED Code(s): 506945314, 255830615 Code(s): D72.829 - ELEVATED WHITE BLOOD CELL COUNT, UNSPECIFIED Status: Acute Priority: High Current Visit: Yes Qualifiers: Leukocytosis type: unspecified Qualified Code(s): D72.829 - Elevated white blood cell count, unspecified - Problem List Review Problem List Initiated/Reviewed/Updated: Yes - My Orders Last 24 Hours: My Active Orders 12/25/20 09:34 Bedrest Bedside Commode [RC] BID Height and Weight [RC] 06 RT Chest Physiotherapy [RC] ASDIRECTED RT Incentive Spirometry [RC] ASDIRECTED Consult to Case Management/[employer] Driver [CONS] Routine Consult to Spiritual Care [CONS] Routine Acetaminophen [TylenoL] 650 mg PO Q4H PRN Acetaminophen [Tylenol] 650 mg RECTAL Q4H PRN Albuterol/Ipratropium [DuoNeb 3.0-0.5 MG/3 ML] 3 ml NEB QIDRT PRN Morphine 2 mg IVPUSH Q2H PRN Ondansetron [Zofran] 4 mg IV Q6H PRN VTE Pharmacological Contraindications [AST] Per Unit Routine Resuscitation Status Routine 12/25/20 09:35 Cardiac Monitoring [RC] CONTINUOUS Intake and Output [RC] 04,16 Oxygen Therapy [RC] ASDIRECTED Pulse Oximetry [RC] PRN Vital Signs [RC] 09,15,21,03 12/25/20 09:36 RT Aerosol Therapy [RC] ASDIRECTED 12/25/20 09:37 Precautions [COMM] Routine 12/25/20 10:02 Patient Status [ADT] Routine 12/25/20 10:06 Consult to Hospice [CONS] Routine 12/25/20 Lunch Regular Diet [DIET] 12/25/20 11:17 LORazepam [Ativan] 0.5 mg IVPUSH Q4H PRN 12/25/20 14:45 PROCALCITONIN [REF] Routine Lactated Ringers [Ringers, Lactated] 1,000 ml IV ASDIRECTED 12/25/20 14:50 Aspiration Precautions [RC] BID Seizure Precautions [OM.PC] Routine 12/25/20 14:51 Consult to Occupational Therapy [OT Evaluation and Treatment] [CONS] Routine PT Evaluation and Treatment [CONS] Routine 12/25/20 15:12 LORazepam [Ativan] 2 mg IVPUSH Q4H PRN 12/25/20 18:00 Piperacillin/Tazobactam [Piperacil-Tazobact] 4.5 gm Sodium Chloride 0.9% [Normal Saline] 100 ml IV Q8H 12/25/20 21:00 levETIRAcetam [Keppra] 500 mg PO BID 12/26/20 07:00 Levothyroxine [Synthroid] 100 mcg PO DAILY@0700 12/26/20 09:00 Desvenlafaxine [Desvenlafaxine ER] 50 mg PO DAILY dexAMETHasone 6 mg PO DAILY lamoTRIgine 50 mg PO BID 12/27/20 05:11 CBC WITH AUTO DIFF [HEME] AM CMP [COMPREHENSIVE METABOLIC PN,CMP] [CHEM] AM CRP [C-REACTIVE PROTEIN] [CHEM] AM MAGNESIUM [CHEM] AM 12/28/20 05:11 CBC WITH AUTO DIFF [HEME] AM CMP [COMPREHENSIVE METABOLIC PN,CMP] [CHEM] AM CRP [C-REACTIVE PROTEIN] [CHEM] AM MAGNESIUM [CHEM] AM 12/29/20 05:11 CBC WITH AUTO DIFF [HEME] AM CMP [COMPREHENSIVE METABOLIC PN,CMP] [CHEM] AM CRP [C-REACTIVE PROTEIN] [CHEM] AM MAGNESIUM [CHEM] AM - Assessment Assessment:: Assessement - day of admission 12/25/2020 (presented to ED on 12/24/2020) * 60-year-old female who presents to ED due to confusion, weakness, and an episode of emesis * History of seizures, anxiety, depression, hypothyroidism, Rosario's thyroiditis, malignant brain melanoma * Had been walking and acting appropriately earlier in the day. 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 * Reportedly had brain surgery to debulk the tumor and she had been receiving radiation treatments in [place] and recently in [place]. * Radiation oncology has been decreasing her dexamethasone treatments. * 12-lead EKG is obtained showing a sinus rhythm at 89 bpm with a left atrial hypertrophy pattern and decreased voltage in the limb leads with poor R wave progression. T wave flattening in aVL is also noted. * Labs are obtained: * WBC of 10.26. * Hemoglobin is 11.4. * She is macrocytic. * Platelet 273,000. * Neutrophils are elevated at 80.7%. * INR is 1.00. * aPTT is 23.1. * Sodium 136. * Potassium 3.7. * Chloride 98. * Carbon dioxide 28. * Anion gap is 13.7. * BUN is 17. Creatinine 0.6. GFR is greater than 60. * Glucose is 114. * Calcium 8.2. * Magnesium 2.1. * Total bilirubin 0.8. * AST is elevated at 211. ALT elevated at 430. Alkaline phosphatase elevated at 495. * CRP is 8.3. * Protein 6.3. * Albumin 2.9. * Lactic acid is 1.7. * GGT is 1096. * proBNP is 257. * Lipase is 96. * UA is negative. * SARS-CoV-2 RNA is negative. * She was noted to have absence of reflexes in all limbs in the ED Babinski was upgoing on both sides and pupils were equal and reactive. * Chest x-ray is obtained showing a focal density within the right lower lung which could represent a thick area of atelectasis as well as pneumonia if the patient has infectious symptoms. Difficult to completely exclude a more proximal lesion causing postobstructive atelectasis. Chest CT was suggested. * CT of the abdomen and pelvis was obtained showing: * multiple nodules within the lungs as well as liver and left adrenal nodule. These findings are highly suspicious for metastatic disease. * There was a small breast nodule measuring 1 cm and mammographic study is recommended as well as right breast ultrasound. * There is slightly increased stool within the colon and other incidental findings as noted. * There is also a focal density within the right lung base, difficult to exclude area of pneumonia if patient has infectious symptoms. * Head CT was obtained showing * 1. Hyperdense lesion within the left posteromedial medial to the lateral left ventricle. This measures 2.5 x 4.1 cm. This has slightly increased in size from previous exam and is compatible with metastatic lesion. * 2. 2.2 cm mass within the midline pushing the third ventricle inferiorly. This shows decreased hemorrhage from prior exam but otherwise is stable. * 3. Vasogenic edema is noted on both sides which has improved on the left side and is stable in the right side. * 4. Small amount of acute blood is seen within the posterior right ventricle. * Dr. Waite, neurosurgeon on-call was contacted and he feels the condition is considered terminal. He reports steroids may help reduce the size of the bleed and swelling but will only help for short period of time. * Unfortunately no beds were available in the [facility] or in our facility and the patient was boarded in the emergency room. * She was given Tylenol for her fever and started on Rocephin 2 g. She was also given metronidazole. * Admitted floor for further management of her suspected pneumonia and assistance with social situation 12/26/2020 This is a 60-year-old female admitted to the hospital for possible pneumonia with significant metastatic disease secondary to malignant melanoma. Labs today show WBC of 9.27. Hemoglobin is 9.8. Platelet 246,000. Neutrophils are elevated at 80.4. Sodium is 139. Potassium 3.3. Chloride 105. Carbon dioxide 21. Anion gap 16.3. BUN is 12. Creatinine 0.6. GFR greater than 60. Glucose 96. Calcium 7.6. Magnesium 2.0. Total bilirubin 0.7. AST is 108. ALT 323. Alkaline phosphatase 354. CRP is down to 4.7. Protein is 5.3. Albumin 2.2. TSH obtained yesterday was 2.701. Procalcitonin obtained yesterday was 0.48. Attempted IV potassium supplementation however patient was unable to tolerate this so patient was given 40 mill equivalents p.o. Patient has been eating and drinking in the room so we will discontinue IV fluids. We will continue IV antibiotics always likely patient's symptoms are secondary to her underlying malignant processes. Blood cultures thus far have been negative. She is not requiring any oxygen. Social work has been involved. At this time patient and are refusing hospice. They would like patient brought home with home health care services. PT and OT were ordered to evaluate the patient for this. Patient continues to be very emotional and confused at times. has been at bedside. Plan for discharge tomorrow pending continued stability. 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 Patricia * Reports plan was to possibly start palliative biologic therapy given worsening findings on PET scan prior. * Agrees with plan of care * PT/OT * Fall precautions * Hospice consultation * SW/CM consultation * Aspiration precautions * Spiritual care consultation History of seizures * Continue home keppra * Continue home lamotrigine * Seizure precautions Anxiety Depression * No current home medications * Continue Q4Hr 0.5mg Ativan for anxiety * Monitor Hypothyroidism H/O Rosario thyroiditis * Continue home levothyroxine * TSH WNL Code status: DNR/DNI PCP: Dr. Blackwell Radiation oncologist: Dr. Sanabria Oncologist: Dr. Raza Neurologist: Dr. Desai DVT prophylaxis: ELIAS cruz (pharmacologic prophylaxis contraindicated due to patient's current bleeding tumor.) Social: Patient resides with Disposition: Patient admitted for further management of suspected pneumonia and assistance with continuing social needs. <Daniela Borja - Last Filed: 12/26/20 14:04> - Patient Data Vitals - Most Recent: Last Vital Signs Temp 98.6 F 12/26/20 07:49 Pulse 82 12/26/20 07:49 Resp 14 12/26/20 07:49 BP 109/69 12/26/20 07:49 Pulse Ox 98 12/26/20 07:49 I&O - Last 24 Hours: Intake & Output 12/25/20 12/26/20 12/26/20 22:59 06:59 14:59 Intake Total 1000 520 320 Output Total 450 625 Balance 550 -105 320 Lab Results Last 24 Hours: Laboratory Results - last 24 hr 12/24/20 12/24/20 12/26/20 Range/Units 21:20 21:20 04:51 WBC 9.27 (3.98-10.04) K/mm3 RBC 3.24 L (3.98-5.22) M/mm3 Hgb 9.8 L D (11.2-15.7) gm/dl Hct 30.9 L (34.1-44.9) % MCV 95.4 H (79.4-94.8) fl MCH 30.2 (25.6-32.2) pg MCHC 31.7 L (32.2-35.5) g/dl RDW Std Deviation 54.4 H (36.4-46.3) fL Plt Count 246 (182-369) K/mm3 MPV 9.9 (9.4-12.3) fl Neut % (Auto) 80.4 H (34.0-71.1) % Lymph % (Auto) 6.1 L (19.3-51.7) % Harvey % (Auto) 11.8 (4.7-12.5) % Eos % (Auto) 0.2 L (0.7-5.8) Baso % (Auto) 0.1 (0.1-1.2) % Neut # (Auto) 7.45 H (1.56-6.13) K/mm3 Lymph # (Auto) 0.57 L (1.18-3.74) K/mm3 Harvey # (Auto) 1.09 H (0.24-0.36) K/mm3 Eos # (Auto) 0.02 L (0.04-0.36) K/mm3 Baso # (Auto) 0.01 (0.01-0.08) K/mm3 Sodium (136-145) mEq/L Potassium (3.5-5.1) mEq/L Chloride (98-107) mEq/L Carbon Dioxide (21-32) mEq/L Anion Gap (5-15) BUN (7-18) mg/dL Creatinine (0.55-1.02) mg/dL Est Cr Clr Drug Dosing mL/min Estimated GFR (MDRD) (>60) mL/min BUN/Creatinine Ratio (14-18) Glucose (70-99) mg/dL Calcium (8.5-10.1) mg/dL Magnesium (1.8-2.4) mg/dL Total Bilirubin (0.2-1.0) mg/dL AST (15-37) U/L ALT (14-59) U/L Alkaline Phosphatase (46-116) U/L C-Reactive Protein (<1.0) mg/dL Total Protein (6.4-8.2) g/dl Albumin (3.4-5.0) g/dl Globulin gm/dL Albumin/Globulin Ratio (1-2) Procalcitonin 0.48 H ng/mL TSH 3rd Generation 2.701 (0.358-3.74) uIU/mL 12/26/20 Range/Units 04:51 WBC (3.98-10.04) K/mm3 RBC (3.98-5.22) M/mm3 Hgb (11.2-15.7) gm/dl Hct (34.1-44.9) % MCV (79.4-94.8) fl MCH (25.6-32.2) pg MCHC (32.2-35.5) g/dl RDW Std Deviation (36.4-46.3) fL Plt Count (182-369) K/mm3 MPV (9.4-12.3) fl Neut % (Auto) (34.0-71.1) % Lymph % (Auto) (19.3-51.7) % Harvey % (Auto) (4.7-12.5) % Eos % (Auto) (0.7-5.8) Baso % (Auto) (0.1-1.2) % Neut # (Auto) (1.56-6.13) K/mm3 Lymph # (Auto) (1.18-3.74) K/mm3 Harvey # (Auto) (0.24-0.36) K/mm3 Eos # (Auto) (0.04-0.36) K/mm3 Baso # (Auto) (0.01-0.08) K/mm3 Sodium 139 (136-145) mEq/L Potassium 3.3 L (3.5-5.1) mEq/L Chloride 105 (98-107) mEq/L Carbon Dioxide 21 (21-32) mEq/L Anion Gap 16.3 H (5-15) BUN 12 (7-18) mg/dL Creatinine 0.6 (0.55-1.02) mg/dL Est Cr Clr Drug Dosing 89.12 mL/min Estimated GFR (MDRD) > 60 (>60) mL/min BUN/Creatinine Ratio 20.0 H (14-18) Glucose 96 (70-99) mg/dL Calcium 7.6 L (8.5-10.1) mg/dL Magnesium 2.0 (1.8-2.4) mg/dL Total Bilirubin 0.7 (0.2-1.0) mg/dL AST 108 H (15-37) U/L ALT 323 H (14-59) U/L Alkaline Phosphatase 354 H (46-116) U/L C-Reactive Protein 4.7 H* (<1.0) mg/dL Total Protein 5.3 L (6.4-8.2) g/dl Albumin 2.2 L (3.4-5.0) g/dl Globulin 3.1 gm/dL Albumin/Globulin Ratio 0.7 L (1-2) Procalcitonin ng/mL TSH 3rd Generation (0.358-3.74) uIU/mL [facility] Results Last 24 Hours: Microbiology 12/24/20 21:30 Blood Culture - Preliminary Blood - Venous - Lab Draw 12/24/20 21:20 Blood Culture - Preliminary Blood - Venous Med Orders - Current: Current Medications Acetaminophen (Acetaminophen 325 Mg Tab) 650 mg PO Q4H PRN PRN Reason: Pain (Mild 1-3)/fever Acetaminophen (Acetaminophen 650 Mg Supp) 650 mg RECTAL Q4H PRN PRN Reason: Pain (mild 1-3) Albuterol/Ipratropium (Albuterol/Ipratropium 3.0-0.5 Mg/3 Ml Neb Soln) 3 ml NEB QIDRT PRN PRN Reason: Shortness Of Breath/wheezing Dexamethasone (Dexamethasone 4 Mg Tab) 6 mg PO DAILY [facility] Last Admin: 12/26/20 08:03 Dose: 6 mg Documented by: Piperacillin Sod/Tazobactam (Sod 4.5 gm/ Sodium Chloride) 100 mls @ 25 mls/hr IV Q8H [facility] Last Admin: 12/26/20 10:07 Dose: 25 mls/hr Documented by: Lamotrigine (Lamotrigine 25 Mg Tab.Chew) 50 mg PO BID [facility] Last Admin: 12/26/20 08:03 Dose: 50 mg Documented by: Levetiracetam (Levetiracetam 500 Mg Tab) 500 mg PO BID [facility] Last Admin: 12/26/20 08:03 Dose: 500 mg Documented by: Levothyroxine Sodium (Levothyroxine 100 Mcg Tab) 100 mcg PO DAILY@0700 [facility] Last Admin: 12/26/20 06:16 Dose: 100 mcg Documented by: Lorazepam (Lorazepam 2 Mg/Ml Sdv) 0.5 mg IVPUSH Q4H PRN PRN Reason: Anxiety Lorazepam (Lorazepam 2 Mg/Ml Sdv) 2 mg IVPUSH Q4H PRN PRN Reason: Seizures Desvenlafaxine Er 50 Mg Tab.Er.24h Ptom 50 mg PO DAILY [facility] Last Admin: 12/26/20 08:07 Dose: 50 mg Documented by: Ondansetron HCl (Ondansetron 4 Mg/2 Ml Sdv) 4 mg IV Q6H PRN PRN Reason: Nausea/Vomiting Discontinued Medications Acetaminophen (Acetaminophen 325 Mg Tab) 975 mg PO ONETIME ONE Stop: 12/24/20 23:05 Last Admin: 12/24/20 23:48 Dose: Not Given Documented by: Acetaminophen (Acetaminophen 650 Mg Supp) Confirm Administered Dose 650 mg .ROUTE .STK-MED ONE Stop: 12/24/20 23:37 Last Admin: 12/24/20 23:47 Dose: Not Given Documented by: Acetaminophen (Acetaminophen 650 Mg Supp) 650 mg RECTAL NOW ONE Stop: 12/24/20 23:48 Last Admin: 12/24/20 23:47 Dose: 650 mg Documented by: Acetaminophen (Acetaminophen 325 Mg Tab) 650 mg PO NOW ONE Stop: 12/25/20 08:58 Last Admin: 12/25/20 09:01 Dose: 650 mg Documented by: Dexamethasone (Dexamethasone 10 Mg/Ml Sdv) 6 mg IVPUSH ONETIME ONE Stop: 12/24/20 22:57 Last Admin: 12/24/20 23:44 Dose: 6 mg Documented by: Diphenhydramine HCl (Diphenhydramine 50 Mg/Ml Sdv) 12.5 mg IVPUSH ONETIME ONE Stop: 12/24/20 20:46 Last Admin: 12/24/20 21:22 Dose: 12.5 mg Documented by: Sodium Chloride (Normal Saline) 1,000 mls @ 100 mls/hr IV ASDIRECTED [facility] Last Admin: 12/25/20 10:30 Dose: 100 mls/hr Documented by: Ceftriaxone Sodium 2 gm/ (Sodium Chloride) 100 mls @ 200 mls/hr IV ONETIME ONE Stop: 12/24/20 23:26 Last Admin: 12/24/20 23:45 Dose: 200 mls/hr Documented by: Metronidazole 500 mg/ Premix 100 mls @ 100 mls/hr IV ONETIME ONE Stop: 12/25/20 01:21 Last Admin: 12/25/20 04:38 Dose: Not Given Documented by: Levetiracetam 500 mg/ Sodium (Chloride) 105 mls @ 400 mls/hr IV ONETIME ONE Stop: 12/25/20 05:53 Last Admin: 12/25/20 06:09 Dose: 400 mls/hr Documented by: Piperacillin Sod/Tazobactam (Sod 4.5 gm/ Sodium Chloride) 100 mls @ 200 mls/hr IV ONETIME ONE Stop: 12/25/20 10:29 Last Admin: 12/25/20 10:30 Dose: 200 mls/hr Documented by: Lactated Ringer's (Ringers, Lactated) 1,000 mls @ 60 mls/hr IV ASDIRECTED [facility] Last Admin: 12/25/20 15:55 Dose: 60 mls/hr Documented by: Potassium Chloride 10 meq/ (Premix) 100 mls @ 100 mls/hr IV Q1H [facility] Stop: 12/26/20 11:29 Last Admin: 12/26/20 10:00 Dose: Not Given Documented by: Lamotrigine (Lamotrigine 25 Mg Tab.Chew) 25 mg PO ONETIME ONE Stop: 12/25/20 21:01 Last Admin: 12/25/20 20:45 Dose: Not Given Documented by: Metoclopramide HCl (Metoclopramide 10 Mg/2 Ml Sdv) 7.5 mg IVPUSH ONETIME ONE Stop: 12/24/20 20:46 Last Admin: 12/24/20 21:22 Dose: 7.5 mg Documented by: Morphine Sulfate (Morphine 2 Mg/Ml Syringe) 2 mg IVPUSH Q2H PRN PRN Reason: Pain (severe 7-10) Stop: 12/26/20 09:36 Potassium Chloride (Potassium Chloride 20 Meq Tab.Er) 40 meq PO ONETIME ONE Stop: 12/26/20 08:24 Last Admin: 12/26/20 09:59 Dose: 40 meq Documented by: - Patient Data Lab Results Last 24 hrs: Laboratory Results - last 24 hr 12/24/20 12/24/20 12/26/20 Range/Units 21:20 21:20 04:51 WBC 9.27 (3.98-10.04) K/mm3 RBC 3.24 L (3.98-5.22) M/mm3 Hgb 9.8 L D (11.2-15.7) gm/dl Hct 30.9 L (34.1-44.9) % MCV 95.4 H (79.4-94.8) fl MCH 30.2 (25.6-32.2) pg MCHC 31.7 L (32.2-35.5) g/dl RDW Std Deviation 54.4 H (36.4-46.3) fL Plt Count 246 (182-369) K/mm3 MPV 9.9 (9.4-12.3) fl Neut % (Auto) 80.4 H (34.0-71.1) % Lymph % (Auto) 6.1 L (19.3-51.7) % Harvey % (Auto) 11.8 (4.7-12.5) % Eos % (Auto) 0.2 L (0.7-5.8) Baso % (Auto) 0.1 (0.1-1.2) % Neut # (Auto) 7.45 H (1.56-6.13) K/mm3 Lymph # (Auto) 0.57 L (1.18-3.74) K/mm3 Harvey # (Auto) 1.09 H (0.24-0.36) K/mm3 Eos # (Auto) 0.02 L (0.04-0.36) K/mm3 Baso # (Auto) 0.01 (0.01-0.08) K/mm3 Sodium (136-145) mEq/L Potassium (3.5-5.1) mEq/L Chloride (98-107) mEq/L Carbon Dioxide (21-32) mEq/L Anion Gap (5-15) BUN (7-18) mg/dL Creatinine (0.55-1.02) mg/dL Est Cr Clr Drug Dosing mL/min Estimated GFR (MDRD) (>60) mL/min BUN/Creatinine Ratio (14-18) Glucose (70-99) mg/dL Calcium (8.5-10.1) mg/dL Magnesium (1.8-2.4) mg/dL Total Bilirubin (0.2-1.0) mg/dL AST (15-37) U/L ALT (14-59) U/L Alkaline Phosphatase (46-116) U/L C-Reactive Protein (<1.0) mg/dL Total Protein (6.4-8.2) g/dl Albumin (3.4-5.0) g/dl Globulin gm/dL Albumin/Globulin Ratio (1-2) Procalcitonin 0.48 H ng/mL TSH 3rd Generation 2.701 (0.358-3.74) uIU/mL 12/26/20 Range/Units 04:51 WBC (3.98-10.04) K/mm3 RBC (3.98-5.22) M/mm3 Hgb (11.2-15.7) gm/dl Hct (34.1-44.9) % MCV (79.4-94.8) fl MCH (25.6-32.2) pg MCHC (32.2-35.5) g/dl RDW Std Deviation (36.4-46.3) fL Plt Count (182-369) K/mm3 MPV (9.4-12.3) fl Neut % (Auto) (34.0-71.1) % Lymph % (Auto) (19.3-51.7) % Harvey % (Auto) (4.7-12.5) % Eos % (Auto) (0.7-5.8) Baso % (Auto) (0.1-1.2) % Neut # (Auto) (1.56-6.13) K/mm3 Lymph # (Auto) (1.18-3.74) K/mm3 Harvey # (Auto) (0.24-0.36) K/mm3 Eos # (Auto) (0.04-0.36) K/mm3 Baso # (Auto) (0.01-0.08) K/mm3 Sodium 139 (136-145) mEq/L Potassium 3.3 L (3.5-5.1) mEq/L Chloride 105 (98-107) mEq/L Carbon Dioxide 21 (21-32) mEq/L Anion Gap 16.3 H (5-15) BUN 12 (7-18) mg/dL Creatinine 0.6 (0.55-1.02) mg/dL Est Cr Clr Drug Dosing 89.12 mL/min Estimated GFR (MDRD) > 60 (>60) mL/min BUN/Creatinine Ratio 20.0 H (14-18) Glucose 96 (70-99) mg/dL Calcium 7.6 L (8.5-10.1) mg/dL Magnesium 2.0 (1.8-2.4) mg/dL Total Bilirubin 0.7 (0.2-1.0) mg/dL AST 108 H (15-37) U/L ALT 323 H (14-59) U/L Alkaline Phosphatase 354 H (46-116) U/L C-Reactive Protein 4.7 H* (<1.0) mg/dL Total Protein 5.3 L (6.4-8.2) g/dl Albumin 2.2 L (3.4-5.0) g/dl Globulin 3.1 gm/dL Albumin/Globulin Ratio 0.7 L (1-2) Procalcitonin ng/mL TSH 3rd Generation (0.358-3.74) uIU/mL Result Diagrams: 12/26/20 04:51 12/26/20 04:51 Octaviano Results Last 24 hrs: Microbiology 12/24/20 21:30 Blood Culture - Preliminary Blood - Venous - Lab Draw 12/24/20 21:20 Blood Culture - Preliminary Blood - Venous Sepsis Event Note - Focused Exam Vital Signs: Vital Signs Temp Pulse Resp BP Pulse Ox 12/26/20 07:49 98.6 F 82 14 109/69 98 12/26/20 06:21 98.4 F 72 18 98/51 L 100 - My Orders Last 24 Hours: My Active Orders 12/25/20 13:16 Antiembolic Devices [RC] BID ELIAS Hose [Antiembolic Hose] [OM.PC] Routine - Plan Plan:: Patient seen and examined. Patient is tearful and quiet. Plans for home health and pt requested. Will eventually progress to hospice. She is not DNR/DNI PE: CVS: [id number] Resp: shallow, soft ABD: s/nt/nd Ext: no edema Neuro_ Aox3
[2020-12-26] MEDS: levETIRAcetam 500 MG Tab PO SCH ×2 (08:03→21:04)
[2020-12-26] MEDS: Potassium Chloride 10 MEQ in Premix Bag 1 BAG IV SCH ×2 (08:03→10:00)
[2020-12-26] MEDS: Dexamethasone 4 MG Tab PO SCH (08:03)
[2020-12-26] MEDS: DESVENLAFAXINE 50 MG PO SCH (08:07)
[2020-12-26] MEDS ORDERED: Potassium Chloride 20 MEQ Tab.ER PO ONE (08:23)
[2020-12-27] MEDS: Piperacillin/Tazobactam 4.5 GM in Sodium Chloride 0.9% 100 ML IV SCH ×2 (03:25→10:14)
[2020-12-27] MEDS: Acetaminophen 325 MG Tab PO PRN ×2 (03:37→08:43)
[2020-12-27] MEDS: Levothyroxine 100 MCG Tab PO SCH (06:57)
[2020-12-27] MEDS: Dexamethasone 4 MG Tab PO SCH (08:42)
[2020-12-27] MEDS: levETIRAcetam 500 MG Tab PO SCH (08:43)
[2020-12-27] MEDS: DESVENLAFAXINE 50 MG PO SCH (08:46)
[2020-12-27 09:20] VITALS: BP 92/55; PULSE 61
--- NOTE | 2020-12-27 11:47 | PCM.DCSUM1 ---
<Vera Cardona - Last Filed: 12/27/20 11:49> Discharge Summary - Hospital Course Free Text/Narrative:: This is a 60-year-old female who presents to ED on the evening of 12/24/2020 accompanied by her and brother due to confusion, weakness, and an episode of emesis. Per the ED report she had been walking and acting appropriately earlier in the day. 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 She reportedly had brain surgery to debulk the tumor and she had been receiving radiation treatments in [place] and recently in [place]. Radiation oncology has been decreasing her dexamethasone treatments. In the ED twelve-lead EKG is obtained showing a sinus rhythm at 89 bpm with a left atrial hypertrophy pattern and decreased voltage in the limb leads with poor R wave progression. T wave flattening in aVL is also noted. Temp is 36.6. Pulse 77. Respirations 13. Blood pressure 121/77. Pulse ox 97%. Labs are obtained showing a WBC of 10.26. Hemoglobin is 11.4. She is macrocytic. Platelet 273,000. Neutrophils are elevated at 80.7%. INR is 1.00. aPTT is 23.1. Sodium 136. Potassium 3.7. Chloride 98. Carbon dioxide 28. Anion gap is 13.7. BUN is 17. Creatinine 0.6. GFR is greater than 60. Glucose is 114. Calcium 8.2. Magnesium 2.1. Total bilirubin 0.8. AST is elevated at 211. ALT elevated at 430. Alkaline phosphatase elevated at 495. CRP is 8.3. Protein 6.3. Albumin 2.9. Lactic acid is 1.7. GGT is 1096. proBNP is 257. Lipase is 96. UA is negative. SARS-CoV-2 RNA is negative. She was noted to have absence of reflexes in all limbs in the ED Babinski was upgoing on both sides and pupils were equal and reactive. Chest x-ray is obtained showing a focal density within the right lower lung which could represent a thick area of atelectasis as well as pneumonia if the patient has infectious symptoms. Difficult to completely exclude a more proximal lesion causing postobstructive atelectasis. Chest CT was suggested. CT of the abdomen and pelvis was obtained showing multiple nodules within the lungs as well as liver and left adrenal nodule. These findings are highly suspicious for metastatic disease. There was a small breast nodule measuring 1 cm and mammographic study is recommended as well as right breast ultrasound. There is slightly increased stool within the colon and other incidental findings as noted. There is also a focal density within the right lung base, difficult to exclude area of pneumonia if patient has infectious symptoms. Head CT was obtained showing 1. Hyperdense lesion within the left posteromedial medial to the lateral left ventricle. This measures 2.5 x 4.1 cm. This has slightly increased in size from previous exam and is compatible with metastatic lesion. 2. 2.2 cm mass within the midline pushing the third ventricle inferiorly. This shows decreased hemorrhage from prior exam but otherwise is stable. 3. Vasogenic edema is noted on both sides which has improved on the left side and is stable in the right side. 4. Small amount of acute blood is seen within the posterior right ventricle. Dr. Waite, neurosurgeon on-call was contacted and he feels the condition is considered terminal. He reports steroids may help reduce the size of the bleed and swelling but will only help for short period of time. Unfortunately no beds were available in the [facility] or in our facility and the patient was boarded in the emergency room. She was given Tylenol for her fever and started on Rocephin 2 g. She was also given metronidazole. She sees Dr. Sanabria and Dr. Raza in [place]. Her neurologist is Dr. Desai. PCP is Dr. Blackwell. She carries a history of seizures, anxiety, depression, hypothyroidism, Rosario's thyroiditis, malignant brain melanoma. She is a DNR/DNI and this was confirmed with the patient and her in the emergency room. She is subsequently admitted to the floor for further management and work-up of her suspected pneumonia. Diagnosis: Stroke: No - Discharge Data Discharge Date: 12/27/20 Discharge Disposition: Home, W Home Health Agency 06 Condition: Poor - Referral to Home Health Date of Face to Face Encounter: 12/27/20 Reason for Homebound Status: [id number] meeting with patient and family. 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 Patient needs home health care nursing services for: Skilled assessment, vital signs, disease/education management, disease progression education, and medication education. Physical therapy for gait training, transfer training, safety education, neuromuscular reeducation, therapeutic exercise, caregiver training, balance training equipment recommendations. Occupational Therapy for: Activities of daily living, balance training, functional mobility training, safety education, therapeutic activities, therapeutic exercises. PICK UP TRUCK DRIVER for assistance with ADLs. Home safety eval. Patient is currently homebound related to decreased activity tolerance, decreased level of endurance, and need for assistance. Patient will be followed by her primary care provider Dr. Blackwell. Primary Care Physician: Adam Blackwell MD Skilled Need: [id number] meeting with patient and family. 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 Patient needs home health care nursing services for: Skilled assessment, vital signs, disease/education management, disease progression education, and medication education. Physical therapy for gait training, transfer training, safety education, neuromuscular reeducation, therapeutic exercise, caregiver training, balance training equipment recommendations. Occupational Therapy for: Activities of daily living, balance training, functional mobility training, safety education, therapeutic activities, therapeutic exercises. PICK UP TRUCK DRIVER for assistance with ADLs. Home safety eval. Patient is currently homebound related to decreased activity tolerance, decreased level of endurance, and need for assistance. Patient will be followed by her primary care provider Dr. Blackwell. - Discharge Diagnosis/Problem(s) (1) Acute febrile illness SNOMED Code(s): 783941280 ICD Code: R50.9 - FEVER, UNSPECIFIED Status: Acute Priority: High Current Visit: Yes (2) Confusion SNOMED Code(s): 979371273 ICD Code: R41.0 - DISORIENTATION, UNSPECIFIED Status: Acute Priority: High Current Visit: Yes (3) Generalized weakness SNOMED Code(s): 82180217 ICD Code: R53.1 - WEAKNESS Status: Acute Priority: High Current Visit: Yes (4) Leukocytosis SNOMED Code(s): 319643702, 769974472 ICD Code: D72.829 - ELEVATED WHITE BLOOD CELL COUNT, UNSPECIFIED Status: Acute Priority: High Current Visit: Yes Qualifiers: Leukocytosis type: unspecified Qualified Code(s): D72.829 - Elevated white blood cell count, unspecified (5) 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 SNOMED Code(s): 623029376, 922509434 ICD Code: C79.31 - SECONDARY MALIGNANT NEOPLASM OF BRAIN Status: Acute Priority: High Current Visit: Yes (6) Metastatic melanoma SNOMED Code(s): 666152185 ICD Code: C79.9 - SECONDARY MALIGNANT NEOPLASM OF UNSPECIFIED SITE Status: Acute Priority: High Current Visit: Yes (7) Liver metastases Status: Chronic Priority: High Current Visit: Yes (8) Lung metastases SNOMED Code(s): 41257236 ICD Code: C78.00 - SECONDARY MALIGNANT NEOPLASM OF UNSPECIFIED LUNG Status: Chronic Priority: High Current Visit: Yes Qualifiers: Laterality: unspecified laterality Qualified Code(s): C78.00 - Secondary malignant neoplasm of unspecified lung - Patient Summary/Data Consults: Consultations 12/25/20 09:34 Consult to Case Management/[place] [facility] [CONS] Routine Consult to Spiritual Care [CONS] Routine 12/25/20 10:06 Consult to Hospice [CONS] Routine 12/25/20 14:51 Consult to Occupational Therapy [OT Evaluation and Treatment] [CONS] Routine PT Evaluation and Treatment [CONS] Routine Hospital Course: Assessement - day of admission 12/25/2020 (presented to ED on 12/24/2020) * 60-year-old female who presents to ED due to confusion, weakness, and an episode of emesis * History of seizures, anxiety, depression, hypothyroidism, Rosario's thyroiditis, malignant brain melanoma * Had been walking and acting appropriately earlier in the day. 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 * Reportedly had brain surgery to debulk the tumor and she had been receiving radiation treatments in [place] and recently in [place]. * Radiation oncology has been decreasing her dexamethasone treatments. * 12-lead EKG is obtained showing a sinus rhythm at 89 bpm with a left atrial hypertrophy pattern and decreased voltage in the limb leads with poor R wave progression. T wave flattening in aVL is also noted. * Labs are obtained: * WBC of 10.26. * Hemoglobin is 11.4. * She is macrocytic. * Platelet 273,000. * Neutrophils are elevated at 80.7%. * INR is 1.00. * aPTT is 23.1. * Sodium 136. * Potassium 3.7. * Chloride 98. * Carbon dioxide 28. * Anion gap is 13.7. * BUN is 17. Creatinine 0.6. GFR is greater than 60. * Glucose is 114. * Calcium 8.2. * Magnesium 2.1. * Total bilirubin 0.8. * AST is elevated at 211. ALT elevated at 430. Alkaline phosphatase elevate d at 495. * CRP is 8.3. * Protein 6.3. * Albumin 2.9. * Lactic acid is 1.7. * GGT is 1096. * proBNP is 257. * Lipase is 96. * UA is negative. * SARS-CoV-2 RNA is negative. * She was noted to have absence of reflexes in all limbs in the ED Babinski was upgoing on both sides and pupils were equal and reactive. * Chest x-ray is obtained showing a focal density within the right lower lung which could represent a thick area of atelectasis as well as pneumonia if the patient has infectious symptoms. Difficult to completely exclude a more proximal lesion causing postobstructive atelectasis. Chest CT was suggested. * CT of the abdomen and pelvis was obtained showing: * multiple nodules within the lungs as well as liver and left adrenal nodule. These findings are highly suspicious for metastatic disease. * There was a small breast nodule measuring 1 cm and mammographic study is recommended as well as right breast ultrasound. * There is slightly increased stool within the colon and other incidental findings as noted. * There is also a focal density within the right lung base, difficult to exclude area of pneumonia if patient has infectious symptoms. * Head CT was obtained showing * 1. Hyperdense lesion within the left posteromedial medial to the lateral left ventricle. This measures 2.5 x 4.1 cm. This has slightly increased in size from previous exam and is compatible with metastatic lesion. * 2. 2.2 cm mass within the midline pushing the third ventricle inferiorly. This shows decreased hemorrhage from prior exam but otherwise is stable. * 3. Vasogenic edema is noted on both sides which has improved on the left side and is stable in the right side. * 4. Small amount of acute blood is seen within the posterior right ventricle. * Dr. Waite, neurosurgeon on-call was contacted and he feels the condition is considered terminal. He reports steroids may help reduce the size of the bleed and swelling but will only help for short period of time. * Unfortunately no beds were available in the state or in our facility and the patient was boarded in the emergency room. * She was given Tylenol for her fever and started on Rocephin 2 g. She was also given metronidazole. 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 Patricia * Reports plan was to possibly start palliative biologic therapy given worsening findings on PET scan prior. * Agrees with plan of care * PT/OT * Fall precautions * Hospice consultation * SW/CM consultation * Aspiration precautions * Spiritual care consultation History of seizures * Continue home keppra * Continue home lamotrigine * Seizure precautions Anxiety Depression * No current home medications * Start Q4Hr 0.5mg Ativan for anxiety * Monitor Hypothyroidism H/O Rosario thyroiditis * Check TSH * Continue home levothyroxine Code status: DNR/DNI PCP: Dr. Blackwell Radiation oncologist: Dr. Sanabria Oncologist: Dr. Raza Neurologist: Dr. Desai DVT prophylaxis: ELIAS cruz (pharmacologic prophylaxis contraindicated due to patient's current bleeding tumor.) Social: Patient resides with Disposition: Patient admitted for further management of suspected pneumonia and assistance with continuing social needs. 12/26/2020 This is a 60-year-old female admitted to the hospital for possible pneumonia with significant metastatic disease secondary to malignant melanoma. Labs today show WBC of 9.27. Hemoglobin is 9.8. Platelet 246,000. Neutrophils are elevated at 80.4. Sodium is 139. Potassium 3.3. Chloride 105. Carbon dioxide 21. Anion gap 16.3. BUN is 12. Creatinine 0.6. GFR greater than 60. Glucose 96. Calcium 7.6. Magnesium 2.0. Total bilirubin 0.7. AST is 108. ALT 323. Alkaline phosphatase 354. CRP is down to 4.7. Protein is 5.3. Albumin 2.2. TSH obtained yesterday was 2.701. Procalcitonin obtained yesterday was 0.48. Attempted IV potassium supplementation however patient was unable to tolerate this so patient was given 40 mill equivalents p.o. Patient has been eating and drinking in the room so we will discontinue IV fluids. We will continue IV antibiotics always likely patient's symptoms are secondary to her underlying malignant processes. Blood cultures thus far have been negative. She is not requiring any oxygen. Social work has been involved. At this time patient and are refusing hospice. They would like patient brought home with home health care services. PT and OT were ordered to evaluate the patient for this. Patient continues to be very emotional and confused at times. has been at bedside. Plan for discharge tomorrow pending continued stability. 12/27/2020 60-year-old female who was brought into the hospital by her due to declining health secondary to metastatic cancer. She was admitted to the hospital for possible pneumonia. Labs today show a WBC of 7.11, hemoglobin 9.4, platelet count 241, potassium 3.9, anion gap 13.9, AST 286, ALT 320, C-reactive protein 6.1 Patient is tolerating diet and up with physical therapy ambulating. She is still extremely emotional at times and is tearful. Patient's is at the bedside and I did discuss discharge with them today. She has been set up with home health care PT and OT. Once again, patient and family are refusing hospice. She will need to follow-up with her primary care provider, neurologist and oncologist as previously scheduled. - Patient Instructions Diet: Usual Diet as Tolerated Activity: As Tolerated Other/Special Instructions: Follow-up with Dr. Blackwell within 1 week. Dexamethasone dosage has been increased to [address] Blackwell to reevaluate at follow-up visit - Discharge Plan *PRESCRIPTION DRUG MONITORING PROGRAM REVIEWED*: Not Applicable *COPY OF PRESCRIPTION DRUG MONITORING REPORT IN PATIENT TRUDY: Not Applicable Prescriptions/Med Rec: dexAMETHasone [Dexamethasone] 6 mg PO DAILY #14 tablet Cefdinir [Omnicef] 300 mg PO BID #16 cap Home Medications: Home Meds Levothyroxine Sodium [Synthroid] 100 mcg PO DAILY 06/12/14 [History] Promethazine [Phenergan] 25 mg PO Q6H PRN #20 tab 11/07/20 [Rx] levETIRAcetam [Keppra] 500 mg PO BID 11/07/20 [History] Cefdinir [Omnicef] 300 mg PO BID #16 cap 12/25/20 [Rx] Desvenlafaxine [Desvenlafaxine ER] 50 mg PO DAILY 12/25/20 [History] lamoTRIgine [Lamotrigine] 25 mg PO BID 12/25/20 [History] lamoTRIgine [Lamotrigine] 50 mg PO BID 12/25/20 [History] dexAMETHasone [Dexamethasone] 6 mg PO DAILY #14 tablet 12/27/20 [Rx] Oxygen Therapy Mode: Room Air Patient Handouts: Confusion Forms: ED Department Discharge Referrals: Mohit Raza MD [Ordering Only Provider] - (Follow up as needed this is your oncologist) Adam Colón MD [Primary Care Provider] - 01/04/21 8:40 am (You will need to see Galdino Royal for this appt. Please check in at 8:40 for appt.) - Discharge Summary/Plan Comment DC Time >30 min.: No Total # of Minutes for Discharge Time: 25 - General Info Date of Service: 12/27/20 Admission Dx/Problem (Free Text: Admission Diagnosis/Problem Admission Diagnosis/Problem Pneumonia Functional Status: Reports: Pain Controlled, Tolerating Diet, Urinating - Review of Systems General: Reports: No Symptoms HEENT: Reports: Headaches Pulmonary: Reports: No Symptoms Cardiovascular: Reports: No Symptoms Gastrointestinal: Reports: No Symptoms Genitourinary: Reports: No Symptoms Musculoskeletal: Reports: No Symptoms Skin: Reports: No Symptoms Neurological: Reports: Confusion (Intermittent), Headache (Occasional), Seizure (Years) Psychiatric: Reports: Other (Very tearful and emotional at times) - Patient Data Vitals - Most Recent: Last Vital Signs Temp 97.7 F 12/27/20 07:25 Pulse 61 12/27/20 07:25 Resp 16 12/27/20 07:25 BP 92/55 L 12/27/20 07:25 Pulse Ox 98 12/27/20 09:00 Weight - Most Recent: 134 lb 8 oz I&O - Last 24 hours: Intake & Output 12/26/20 12/27/20 12/27/20 22:59 06:59 14:59 Intake Total 1060 700 Output Total 800 Balance 1060 -100 Lab Results - Last 24 hrs: Laboratory Results - last 24 hr 12/24/20 12/27/20 12/27/20 Range/Units 21:20 06:15 06:15 WBC 7.11 (3.98-10.04) K/mm3 RBC 3.16 L (3.98-5.22) M/mm3 Hgb 9.4 L (11.2-15.7) gm/dl Hct 30.3 L (34.1-44.9) % MCV 95.9 H (79.4-94.8) fl MCH 29.7 (25.6-32.2) pg MCHC 31.0 L (32.2-35.5) g/dl RDW Std Deviation 54.6 H (36.4-46.3) fL Plt Count 241 (182-369) K/mm3 MPV 9.7 (9.4-12.3) fl Neut % (Auto) 80.7 H (34.0-71.1) % Lymph % (Auto) 7.2 L (19.3-51.7) % [place] % (Auto) 10.3 (4.7-12.5) % Eos % (Auto) 0.3 L (0.7-5.8) Baso % (Auto) 0.1 (0.1-1.2) % Neut # (Auto) 5.74 (1.56-6.13) K/mm3 Lymph # (Auto) 0.51 L (1.18-3.74) K/mm3 [place] # (Auto) 0.73 H (0.24-0.36) K/mm3 Eos # (Auto) 0.02 L (0.04-0.36) K/mm3 Baso # (Auto) 0.01 (0.01-0.08) K/mm3 Sodium 144 (136-145) mEq/L Potassium 3.9 (3.5-5.1) mEq/L Chloride 110 H (98-107) mEq/L Carbon Dioxide 24 (21-32) mEq/L Anion Gap 13.9 (5-15) BUN 12 (7-18) mg/dL Creatinine 0.8 (0.55-1.02) mg/dL Est Cr Clr Drug Dosing 69.51 mL/min Estimated GFR (MDRD) > 60 (>60) mL/min BUN/Creatinine Ratio 15.0 (14-18) Glucose 102 H (70-99) mg/dL Calcium 8.1 L (8.5-10.1) mg/dL Magnesium 2.2 (1.8-2.4) mg/dL Total Bilirubin 0.4 (0.2-1.0) mg/dL AST 93 H (15-37) U/L ALT 276 H (14-59) U/L Alkaline Phosphatase 320 H (46-116) U/L C-Reactive Protein 6.1 H* (<1.0) mg/dL Total Protein 5.3 L (6.4-8.2) g/dl Albumin 2.1 L (3.4-5.0) g/dl Globulin 3.2 gm/dL Albumin/Globulin Ratio 0.7 L (1-2) Procalcitonin 0.48 H ng/mL KAYCEE Results - Last 24 hrs: Microbiology 12/24/20 21:30 Blood Culture - Preliminary Blood - Venous - Lab Draw 12/24/20 21:20 Blood Culture - Preliminary Blood - Venous Med Orders - Current: Current Medications Acetaminophen (Acetaminophen 325 Mg Tab) 650 mg PO Q4H PRN PRN Reason: Pain (Mild 1-3)/fever Last Admin: 12/27/20 08:43 Dose: 650 mg Documented by: Acetaminophen (Acetaminophen 650 Mg Supp) 650 mg RECTAL Q4H PRN PRN Reason: Pain (mild 1-3) Albuterol/Ipratropium (Albuterol/Ipratropium 3.0-0.5 Mg/3 Ml Neb Soln) 3 ml NEB QIDRT PRN PRN Reason: Shortness Of Breath/wheezing Dexamethasone (Dexamethasone 4 Mg Tab) 6 mg PO DAILY [facility] Last Admin: 12/27/20 08:42 Dose: 6 mg Documented by: Piperacillin Sod/Tazobactam (Sod 4.5 gm/ Sodium Chloride) 100 mls @ 25 mls/hr IV Q8H [facility] Last Admin: 12/27/20 10:14 Dose: 25 mls/hr Documented by: Lamotrigine (Lamotrigine 25 Mg Tab.Chew) 50 mg PO BID [facility] Last Admin: 12/27/20 08:43 Dose: 50 mg Documented by: Levetiracetam (Levetiracetam 500 Mg Tab) 500 mg PO BID [facility] Last Admin: 12/27/20 08:43 Dose: 500 mg Documented by: Levothyroxine Sodium (Levothyroxine 100 Mcg Tab) 100 mcg PO DAILY@0700 [facility] Last Admin: 12/27/20 06:57 Dose: Not Given Documented by: Lorazepam (Lorazepam 2 Mg/Ml Sdv) 0.5 mg IVPUSH Q4H PRN PRN Reason: Anxiety Lorazepam (Lorazepam 2 Mg/Ml Sdv) 2 mg IVPUSH Q4H PRN PRN Reason: Seizures Desvenlafaxine Er 50 Mg Tab.Er.24h Ptom 50 mg PO DAILY [facility] Last Admin: 12/27/20 08:46 Dose: 50 mg Documented by: Ondansetron HCl (Ondansetron 4 Mg/2 Ml Sdv) 4 mg IV Q6H PRN PRN Reason: Nausea/Vomiting Discontinued Medications Acetaminophen (Acetaminophen 325 Mg Tab) 975 mg PO ONETIME ONE Stop: 12/24/20 23:05 Last Admin: 12/24/20 23:48 Dose: Not Given Documented by: Acetaminophen (Acetaminophen 650 Mg Supp) Confirm Administered Dose 650 mg .ROUTE .STK-MED ONE Stop: 12/24/20 23:37 Last Admin: 12/24/20 23:47 Dose: Not Given Documented by: Acetaminophen (Acetaminophen 650 Mg Supp) 650 mg RECTAL NOW ONE Stop: 12/24/20 23:48 Last Admin: 12/24/20 23:47 Dose: 650 mg Documented by: Acetaminophen (Acetaminophen 325 Mg Tab) 650 mg PO NOW ONE Stop: 12/25/20 08:58 Last Admin: 12/25/20 09:01 Dose: 650 mg Documented by: Dexamethasone (Dexamethasone 10 Mg/Ml Sdv) 6 mg IVPUSH ONETIME ONE Stop: 12/24/20 22:57 Last Admin: 12/24/20 23:44 Dose: 6 mg Documented by: Diphenhydramine HCl (Diphenhydramine 50 Mg/Ml Sdv) 12.5 mg IVPUSH ONETIME ONE Stop: 12/24/20 20:46 Last Admin: 12/24/20 21:22 Dose: 12.5 mg Documented by: Sodium Chloride (Normal Saline) 1,000 mls @ 100 mls/hr IV ASDIRECTED [facility] Last Admin: 12/25/20 10:30 Dose: 100 mls/hr Documented by: Ceftriaxone Sodium 2 gm/ (Sodium Chloride) 100 mls @ 200 mls/hr IV ONETIME ONE Stop: 12/24/20 23:26 Last Admin: 12/24/20 23:45 Dose: 200 mls/hr Documented by: Metronidazole 500 mg/ Premix 100 mls @ 100 mls/hr IV ONETIME ONE Stop: 12/25/20 01:21 Last Admin: 12/25/20 04:38 Dose: Not Given Documented by: Levetiracetam 500 mg/ Sodium (Chloride) 105 mls @ 400 mls/hr IV ONETIME ONE Stop: 12/25/20 05:53 Last Admin: 12/25/20 06:09 Dose: 400 mls/hr Documented by: Piperacillin Sod/Tazobactam (Sod 4.5 gm/ Sodium Chloride) 100 mls @ 200 mls/hr IV ONETIME ONE Stop: 12/25/20 10:29 Last Admin: 12/25/20 10:30 Dose: 200 mls/hr Documented by: Lactated Ringer's (Ringers, Lactated) 1,000 mls @ 60 mls/hr IV ASDIRECTED [facility] Last Admin: 12/25/20 15:55 Dose: 60 mls/hr Documented by: Potassium Chloride 10 meq/ (Premix) 100 mls @ 100 mls/hr IV Q1H [facility] Stop: 12/26/20 11:29 Last Admin: 12/26/20 10:00 Dose: Not Given Documented by: Lamotrigine (Lamotrigine 25 Mg Tab.Chew) 25 mg PO ONETIME ONE Stop: 12/25/20 21:01 Last Admin: 12/25/20 20:45 Dose: Not Given Documented by: Metoclopramide HCl (Metoclopramide 10 Mg/2 Ml Sdv) 7.5 mg IVPUSH ONETIME ONE Stop: 12/24/20 20:46 Last Admin: 12/24/20 21:22 Dose: 7.5 mg Documented by: Morphine Sulfate (Morphine 2 Mg/Ml Syringe) 2 mg IVPUSH Q2H PRN PRN Reason: Pain (severe 7-10) Stop: 12/26/20 09:36 Potassium Chloride (Potassium Chloride 20 Meq Tab.Er) 40 meq PO ONETIME ONE Stop: 12/26/20 08:24 Last Admin: 12/26/20 09:59 Dose: 40 meq Documented by: - Exam Quality Assessment: Denies: Supplemental Oxygen General: Reports: Alert, Oriented (At the time of my assessment however patient goes in and out of disorientation) HEENT: Reports: Pupils Equal, Mucous Membr. Moist/[place] Neck: Reports: Supple, Trachea Midline Lungs: Reports: Clear to Auscultation, Normal Respiratory Effort Cardiovascular: Reports: Regular Rate, Regular Rhythm GI/Abdominal Exam: Normal Bowel Sounds, Soft, Non-Tender, No Distention (Female) Exam: Deferred Rectal (Female) Exam: Deferred Back Exam: Reports: Normal Inspection Extremities: Normal Inspection, No Pedal Edema Skin: Reports: Warm, Dry, Intact Neurological: Reports: No New Focal Deficit Psy/Mental Status: Reports: Alert, Normal Affect, Normal Mood *Q Meaningful Use (DIS) - VTE *Q VTE Pharmacological Contraindications *Q: Active Hemorrhage <Daniela Borja - Last Filed: 12/27/20 12:02> Discharge Summary - Hospital Course Free Text/Narrative:: Patient was seen and examined and patient has been quiet and tearful. We spoke to family friend whois concerned on their decision for home health and pt. We agree with the concern but the patient and and deciding on this and they will dc home today. Unfortunately they will likely have to fail outpatient treatment to be able to further their decisions. PE: cvs: [id number] Resp: CTA Bl Abd Sntnd Ext no edema - Referral to Home Health Primary Care Physician: Adam Blackwell MD - Patient Summary/Data Consults: Consultations 12/25/20 09:34 Consult to Case Management/[place] [employer] [CONS] Routine Consult to Spiritual Care [CONS] Routine 12/25/20 10:06 Consult to Hospice [CONS] Routine 12/25/20 14:51 Consult to Occupational Therapy [OT Evaluation and Treatment] [CONS] Routine PT Evaluation and Treatment [CONS] Routine - Patient Data Vitals - Most Recent: Last Vital Signs Temp 97.7 F 12/27/20 07:25 Pulse 61 12/27/20 07:25 Resp 16 12/27/20 07:25 BP 92/55 L 12/27/20 07:25 Pulse Ox 98 12/27/20 09:00 I&O - Last 24 hours: Intake & Output 12/26/20 12/27/20 12/27/20 22:59 06:59 14:59 Intake Total 1060 700 Output Total 800 Balance 1060 -100 Lab Results - Last 24 hrs: Laboratory Results - last 24 hr 12/27/20 12/27/20 Range/Units 06:15 06:15 WBC 7.11 (3.98-10.04) K/mm3 RBC 3.16 L (3.98-5.22) M/mm3 Hgb 9.4 L (11.2-15.7) gm/dl Hct 30.3 L (34.1-44.9) % MCV 95.9 H (79.4-94.8) fl MCH 29.7 (25.6-32.2) pg MCHC 31.0 L (32.2-35.5) g/dl RDW Std Deviation 54.6 H (36.4-46.3) fL Plt Count 241 (182-369) K/mm3 MPV 9.7 (9.4-12.3) fl Neut % (Auto) 80.7 H (34.0-71.1) % Lymph % (Auto) 7.2 L (19.3-51.7) % [place] % (Auto) 10.3 (4.7-12.5) % Eos % (Auto) 0.3 L (0.7-5.8) Baso % (Auto) 0.1 (0.1-1.2) % Neut # (Auto) 5.74 (1.56-6.13) K/mm3 Lymph # (Auto) 0.51 L (1.18-3.74) K/mm3 [place] # (Auto) 0.73 H (0.24-0.36) K/mm3 Eos # (Auto) 0.02 L (0.04-0.36) K/mm3 Baso # (Auto) 0.01 (0.01-0.08) K/mm3 Sodium 144 (136-145) mEq/L Potassium 3.9 (3.5-5.1) mEq/L Chloride 110 H (98-107) mEq/L Carbon Dioxide 24 (21-32) mEq/L Anion Gap 13.9 (5-15) BUN 12 (7-18) mg/dL Creatinine 0.8 (0.55-1.02) mg/dL Est Cr Clr Drug Dosing 69.51 mL/min Estimated GFR (MDRD) > 60 (>60) mL/min BUN/Creatinine Ratio 15.0 (14-18) Glucose 102 H (70-99) mg/dL Calcium 8.1 L (8.5-10.1) mg/dL Magnesium 2.2 (1.8-2.4) mg/dL Total Bilirubin 0.4 (0.2-1.0) mg/dL AST 93 H (15-37) U/L ALT 276 H (14-59) U/L Alkaline Phosphatase 320 H (46-116) U/L C-Reactive Protein 6.1 H* (<1.0) mg/dL Total Protein 5.3 L (6.4-8.2) g/dl Albumin 2.1 L (3.4-5.0) g/dl Globulin 3.2 gm/dL Albumin/Globulin Ratio 0.7 L (1-2) KAYCEE Results - Last 24 hrs: Microbiology 12/24/20 21:30 Blood Culture - Preliminary Blood - Venous - Lab Draw 12/24/20 21:20 Blood Culture - Preliminary Blood - Venous Med Orders - Current: Current Medications Acetaminophen (Acetaminophen 325 Mg Tab) 650 mg PO Q4H PRN PRN Reason: Pain (Mild 1-3)/fever Last Admin: 12/27/20 08:43 Dose: 650 mg Documented by: Acetaminophen (Acetaminophen 650 Mg Supp) 650 mg RECTAL Q4H PRN PRN Reason: Pain (mild 1-3) Albuterol/Ipratropium (Albuterol/Ipratropium 3.0-0.5 Mg/3 Ml Neb Soln) 3 ml NEB QIDRT PRN PRN Reason: Shortness Of Breath/wheezing Dexamethasone (Dexamethasone 4 Mg Tab) 6 mg PO DAILY [facility] Last Admin: 12/27/20 08:42 Dose: 6 mg Documented by: Piperacillin Sod/Tazobactam (Sod 4.5 gm/ Sodium Chloride) 100 mls @ 25 mls/hr IV Q8H [facility] Last Admin: 12/27/20 10:14 Dose: 25 mls/hr Documented by: Lamotrigine (Lamotrigine 25 Mg Tab.Chew) 50 mg PO BID [facility] Last Admin: 12/27/20 08:43 Dose: 50 mg Documented by: Levetiracetam (Levetiracetam 500 Mg Tab) 500 mg PO BID [facility] Last Admin: 12/27/20 08:43 Dose: 500 mg Documented by: Levothyroxine Sodium (Levothyroxine 100 Mcg Tab) 100 mcg PO DAILY@0700 [facility] Last Admin: 12/27/20 06:57 Dose: Not Given Documented by: Lorazepam (Lorazepam 2 Mg/Ml Sdv) 0.5 mg IVPUSH Q4H PRN PRN Reason: Anxiety Lorazepam (Lorazepam 2 Mg/Ml Sdv) 2 mg IVPUSH Q4H PRN PRN Reason: Seizures Desvenlafaxine Er 50 Mg Tab.Er.24h Ptom 50 mg PO DAILY [facility] Last Admin: 12/27/20 08:46 Dose: 50 mg Documented by: Ondansetron HCl (Ondansetron 4 Mg/2 Ml Sdv) 4 mg IV Q6H PRN PRN Reason: Nausea/Vomiting Discontinued Medications Acetaminophen (Acetaminophen 325 Mg Tab) 975 mg PO ONETIME ONE Stop: 12/24/20 23:05 Last Admin: 12/24/20 23:48 Dose: Not Given Documented by: Acetaminophen (Acetaminophen 650 Mg Supp) Confirm Administered Dose 650 mg .ROUTE .STK-MED ONE Stop: 12/24/20 23:37 Last Admin: 12/24/20 23:47 Dose: Not Given Documented by: Acetaminophen (Acetaminophen 650 Mg Supp) 650 mg RECTAL NOW ONE Stop: 12/24/20 23:48 Last Admin: 12/24/20 23:47 Dose: 650 mg Documented by: Acetaminophen (Acetaminophen 325 Mg Tab) 650 mg PO NOW ONE Stop: 12/25/20 08:58 Last Admin: 12/25/20 09:01 Dose: 650 mg Documented by: Dexamethasone (Dexamethasone 10 Mg/Ml Sdv) 6 mg IVPUSH ONETIME ONE Stop: 12/24/20 22:57 Last Admin: 12/24/20 23:44 Dose: 6 mg Documented by: Diphenhydramine HCl (Diphenhydramine 50 Mg/Ml Sdv) 12.5 mg IVPUSH ONETIME ONE Stop: 12/24/20 20:46 Last Admin: 12/24/20 21:22 Dose: 12.5 mg Documented by: Sodium Chloride (Normal Saline) 1,000 mls @ 100 mls/hr IV ASDIRECTED [facility] Last Admin: 12/25/20 10:30 Dose: 100 mls/hr Documented by: Ceftriaxone Sodium 2 gm/ (Sodium Chloride) 100 mls @ 200 mls/hr IV ONETIME ONE Stop: 12/24/20 23:26 Last Admin: 12/24/20 23:45 Dose: 200 mls/hr Documented by: Metronidazole 500 mg/ Premix 100 mls @ 100 mls/hr IV ONETIME ONE Stop: 12/25/20 01:21 Last Admin: 12/25/20 04:38 Dose: Not Given Documented by: Levetiracetam 500 mg/ Sodium (Chloride) 105 mls @ 400 mls/hr IV ONETIME ONE Stop: 12/25/20 05:53 Last Admin: 12/25/20 06:09 Dose: 400 mls/hr Documented by: Piperacillin Sod/Tazobactam (Sod 4.5 gm/ Sodium Chloride) 100 mls @ 200 mls/hr IV ONETIME ONE Stop: 12/25/20 10:29 Last Admin: 12/25/20 10:30 Dose: 200 mls/hr Documented by: Lactated Ringer's (Ringers, Lactated) 1,000 mls @ 60 mls/hr IV ASDIRECTED [facility] Last Admin: 12/25/20 15:55 Dose: 60 mls/hr Documented by: Potassium Chloride 10 meq/ (Premix) 100 mls @ 100 mls/hr IV Q1H [facility] Stop: 12/26/20 11:29 Last Admin: 12/26/20 10:00 Dose: Not Given Documented by: Lamotrigine (Lamotrigine 25 Mg Tab.Chew) 25 mg PO ONETIME ONE Stop: 12/25/20 21:01 Last Admin: 12/25/20 20:45 Dose: Not Given Documented by: Metoclopramide HCl (Metoclopramide 10 Mg/2 Ml Sdv) 7.5 mg IVPUSH ONETIME ONE Stop: 12/24/20 20:46 Last Admin: 12/24/20 21:22 Dose: 7.5 mg Documented by: Morphine Sulfate (Morphine 2 Mg/Ml Syringe) 2 mg IVPUSH Q2H PRN PRN Reason: Pain (severe 7-10) Stop: 12/26/20 09:36 Potassium Chloride (Potassium Chloride 20 Meq Tab.Er) 40 meq PO ONETIME ONE Stop: 12/26/20 08:24 Last Admin: 12/26/20 09:59 Dose: 40 meq Documented by:
== END 2020-12-27 12:58 | disposition home health service (06) | DRG 41 ==
LOC: JD.ED 20:42 → JD.MS 12-25 08:46
PROVIDERS: ADMIT Internal Medicine; ATTEND Internal Medicine
DX: C79.31 Secondary malignant neoplasm of brain (principal); C78.00 Secondary malignant neoplasm of unspecified lung; J18.9 Pneumonia, unspecified organism; G93.6 Cerebral edema; F41.9 Anxiety disorder, unspecified; C71.9 Malignant neoplasm of brain, unspecified; F32.9 Major depressive disorder, single episode, unspecified; E03.9 Hypothyroidism, unspecified; E06.3 Autoimmune thyroiditis; C78.7 Secondary malignant neoplasm of liver and intrahepatic bile duct; C80.1 Malignant (primary) neoplasm, unspecified; C79.72 Secondary malignant neoplasm of left adrenal gland; Z20.822 Contact with and (suspected) exposure to COVID-19; Z66 Do not resuscitate; Z79.890 Hormone replacement therapy; Z79.899 Other long term (current) drug therapy; Z88.8 Allergy status to other drugs, medicaments and biological substances; Z88.5 Allergy status to narcotic agent
CPT/HCPCS: 36415; 70450; 70450-26; 71045; 71045-26; 74177; 74177-26; 80053; 81001; 82947; 82977; 83605; 83690; 83735; 83880; 84145; 84443; 85025; 85610; 85730; 86140; 87040; 93005; 93010; 94667; 96365; 96367; 96375; 97110-GP; 97163-GP; 97530-GP; 99285; 99285-25; A9270-GY; J0696; J1100; J1200; J1953; J2543; J2765; J3480; J7030; J7120; J8540; U0002

== ENCOUNTER 2020-12-29 04:33 | Emergency (ER) | payer BC ==
[2020-12-29] MEDS ORDERED: Sodium Chloride 0.9% 10 ML Syringe FLUSH PRN (04:44)
[2020-12-29] MEDS ORDERED: Lactated Ringers 1,000 ML IV SCH (04:45)
--- NOTE | 2020-12-29 07:06 | EDM.PDOC ---
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: IV/IO - Related Data Allergies Allergy/AdvReac Type Severity Reaction Status Date / Time Zflgfzk-Oyw-Oab Reductase Allergy Severe Other Verified 12/29/20 20:12 Inhibitor hydrocodone AdvReac Severe Nausea Verified 12/29/20 04:42 Home Meds: Home Meds Levothyroxine Sodium [Synthroid] 100 mcg PO DAILY 06/12/14 [History] Promethazine [Phenergan] 25 mg PO Q6H PRN #20 tab 11/07/20 [Rx] levETIRAcetam [Keppra] 500 mg PO BID 11/07/20 [History] Cefdinir [Omnicef] 300 mg PO BID #16 cap 12/25/20 [Rx] Desvenlafaxine [Desvenlafaxine ER] 50 mg PO DAILY 12/25/20 [History] lamoTRIgine [Lamotrigine] 25 mg PO BID 12/25/20 [History] lamoTRIgine [Lamotrigine] 50 mg PO BID 12/25/20 [History] dexAMETHasone [Dexamethasone] 6 mg PO DAILY #14 tablet 12/27/20 [Rx] Past Medical History HEENT History: Reports: Other (See Below) Other HEENT History: wears glasses-not here Musculoskeletal History: Reports: Fracture Neurological History: Reports: Seizure Other Neuro History: brain tumor Psychiatric History: Reports: Anxiety, Depression Endocrine/Metabolic History: Reports: Hypothyroidism, Other (See Below) Other Endocrine/Metabolic History: [place] Oncologic (Cancer) History: Reports: Brain, Malignant Melanoma - Infectious Disease History Infectious Disease History: Reports: Chicken Pox - Past Surgical History Neurological Surgical History: Reports: Other (See Below) Other Neurological Surgeries/Procedures: raditation of brain tumor Social & Family History - Family History Family Medical History: No Pertinent Family History - Tobacco Use Tobacco Use Status *Q: Never Tobacco User - Caffeine Use Caffeine Use: Reports: None - Recreational Drug Use Recreational Drug Use: No - Living Situation & Occupation Living situation: Reports: Occupation: Employed ED ROS GENERAL - Review of Systems Review Of Systems: Unable To Obtain Reason Not Obtained: Unreliable historian ED EXAM, GENERAL - Physical Exam Exam: See Below Free Text/Narrative:: Constitutional - asleep, awakens easily; no acute distress Head - no facial swelling or weakness Eyes - extra ocular motion intact; conjunctiva normal ENT - no nasal deformity; no epistaxis; normal phonation right Neck - no swelling Respiratory - normal respiratory effort; no crackles or wheezing; no stridor Cardiovascular - regular rhythm; normal rate; S1; S2; grade 1/6 systolic murmur GI/Abdomen - normal bowel sounds; soft; no tenderness; no rebound; no guarding; no mass Musculoskeletal - grossly normal strength and motion; no swelling or deformity Skin - warm; dry Neurologic - normal speech; no weakness Psychiatric - normal, somewhat labile mood and affect; memory and attention limited #1 Interpretation EKG Date: 12/29/20 Time: 04:52 Rhythm: NSR [place]: Normal P-Wave: Present QRS: Other (Poor R wave progression) ST-T: Normal QT: Normal EKG Interpretation Comments: No change 12/24/2020 Course - Vital Signs Text/Narrative:: . Considered etiologies included: Weakness, fall, confusion, encephalopathy, metastatic disease, derangement, fever, sepsis Patient was evaluated as above Investigations were initiated Empiric treatment was provided with IV fluid infusion During reassessment, patient was asked about her functioning at home She stated "my parents took me home" She was told of telegraphic typewriter repairer's understanding that she had fallen She replied insistently "I did not fall; I ..." She subsequently grimaced tearfully and said "where's my dad?" [employer] Attendant called phone number for patient's , Jace He indicated that he was on his way to the hospital, was approximately 15 minutes away [employer] Attendant spoke with Dr. Borja (hospitalist) who had taken care of patient during recent hospital admission She indicated that patient had been evaluated and accepted to hospice care, but had been declined by Patient was ultimately discharged home with home health arrangements which could be transitioned to home hospice as necessary [employer] Attendant had conversation with patient's after his arrival to the ED Patient's current condition and lab changes since recent hospitalization were reviewed Jace expressed agreement with transition to home hospice care Situation was discussed with ISA Turner for home health Yue stated she would speak with Jace to determine resources necessary for patient to return home today RN was subsequently notified that patient could be discharged, and hospice services would begin Thursday01/01/21 Last Recorded V/S: Last Vital Signs Temp 37.3 C 12/29/20 09:45 Pulse 88 12/29/20 09:45 Resp 16 12/29/20 09:45 BP 95/76 12/29/20 09:45 Pulse Ox 97 12/29/20 09:45 - Orders/Labs/Meds Orders: Active Orders 24 hr Category Date Time Status Chest 1V Frontal [CR] Stat Exams 12/29/20 06:25 Taken BLOOD CULTURE [MREF] Stat Lab 12/29/20 05:05 Received BLOOD CULTURE [MREF] Stat Lab 12/29/20 05:15 Received Blood Culture x2 Reflex Set [OM.PC] Stat Oth 12/29/20 04:44 Ordered Peripheral IV Insertion Adult [OM.PC] Stat Oth 12/29/20 04:43 Ordered EKG 12 Lead [EK] Stat Ther 12/29/20 04:43 Ordered Labs: Laboratory Tests 12/29/20 12/29/20 12/29/20 Range/Units 05:05 05:05 05:05 WBC 9.43 (3.98-10.04) K/mm3 RBC 3.83 L (3.98-5.22) M/mm3 Hgb 11.6 D (11.2-15.7) gm/dl Hct 36.7 (34.1-44.9) % MCV 95.8 H (79.4-94.8) fl MCH 30.3 (25.6-32.2) pg MCHC 31.6 L (32.2-35.5) g/dl RDW Std Deviation 56.0 H (36.4-46.3) fL Plt Count 241 (182-369) K/mm3 MPV 10.0 (9.4-12.3) fl Neut % (Auto) 87.0 H (34.0-71.1) % Lymph % (Auto) 3.0 L (19.3-51.7) % [place] % (Auto) 8.8 (4.7-12.5) % Eos % (Auto) 0 L (0.7-5.8) Baso % (Auto) 0.1 (0.1-1.2) % Neut # (Auto) 8.21 H (1.56-6.13) K/mm3 Lymph # (Auto) 0.28 L (1.18-3.74) K/mm3 [place] # (Auto) 0.83 H (0.24-0.36) K/mm3 Eos # (Auto) 0.00 L (0.04-0.36) K/mm3 Baso # (Auto) 0.01 (0.01-0.08) K/mm3 Sodium 141 (136-145) mEq/L Potassium 3.5 (3.5-5.1) mEq/L Chloride 103 (98-107) mEq/L Carbon Dioxide 25 (21-32) mEq/L Anion Gap 16.5 H (5-15) BUN 14 (7-18) mg/dL Creatinine 0.7 (0.55-1.02) mg/dL Est Cr Clr Drug Dosing TNP Estimated GFR (MDRD) > 60 (>60) mL/min BUN/Creatinine Ratio 20.0 H (14-18) Glucose 111 H (70-99) mg/dL Lactic Acid 2.6 H* (0.4-2.0) mmol/L Calcium 8.5 (8.5-10.1) mg/dL Total Bilirubin 1.0 (0.2-1.0) mg/dL AST 449 H (15-37) U/L ALT 571 H (14-59) U/L Alkaline Phosphatase 547 H (46-116) U/L Ammonia (11-32) umol/L Troponin I < 0.017 (0.00-0.056) ng/mL Total Protein 6.4 (6.4-8.2) g/dl Albumin 2.7 L (3.4-5.0) g/dl Globulin 3.7 gm/dL Albumin/Globulin Ratio 0.7 L (1-2) Urine Color (Yellow) Urine Appearance (Clear) Urine pH (5.0-8.0) Ur Specific [place] (1.005-1.030) Urine Protein (Negative) Urine Glucose (UA) (Negative) Urine Ketones (Negative) Urine Occult Blood (Negative) Urine Nitrite (Negative) Urine Bilirubin (Negative) Urine Urobilinogen (0.2-1.0) Ur Leukocyte Esterase (Negative) Urine RBC (0-5) /hpf Urine WBC (0-5) /hpf Ur Epithelial Cells (0-5) /hpf Urine Bacteria (FEW) /hpf Urine Mucus (FEW) /hpf 12/29/20 12/29/20 12/29/20 Range/Units 08:05 08:05 09:50 WBC (3.98-10.04) K/mm3 RBC (3.98-5.22) M/mm3 Hgb (11.2-15.7) gm/dl Hct (34.1-44.9) % MCV (79.4-94.8) fl MCH (25.6-32.2) pg MCHC (32.2-35.5) g/dl RDW Std Deviation (36.4-46.3) fL Plt Count (182-369) K/mm3 MPV (9.4-12.3) fl Neut % (Auto) (34.0-71.1) % Lymph % (Auto) (19.3-51.7) % [place] % (Auto) (4.7-12.5) % Eos % (Auto) (0.7-5.8) Baso % (Auto) (0.1-1.2) % Neut # (Auto) (1.56-6.13) K/mm3 Lymph # (Auto) (1.18-3.74) K/mm3 [place] # (Auto) (0.24-0.36) K/mm3 Eos # (Auto) (0.04-0.36) K/mm3 Baso # (Auto) (0.01-0.08) K/mm3 Sodium (136-145) mEq/L Potassium (3.5-5.1) mEq/L Chloride (98-107) mEq/L Carbon Dioxide (21-32) mEq/L Anion Gap (5-15) BUN (7-18) mg/dL Creatinine (0.55-1.02) mg/dL Est Cr Clr Drug Dosing Estimated GFR (MDRD) (>60) mL/min BUN/Creatinine Ratio (14-18) Glucose (70-99) mg/dL Lactic Acid 2.7 H* (0.4-2.0) mmol/L Calcium (8.5-10.1) mg/dL Total Bilirubin (0.2-1.0) mg/dL AST (15-37) U/L ALT (14-59) U/L Alkaline Phosphatase (46-116) U/L Ammonia 19 (11-32) umol/L Troponin I (0.00-0.056) ng/mL Total Protein (6.4-8.2) g/dl Albumin (3.4-5.0) g/dl Globulin gm/dL Albumin/Globulin Ratio (1-2) Urine Color [place] H (Yellow) Urine Appearance Clear (Clear) Urine pH 7.0 (5.0-8.0) Ur Specific [place] 1.015 (1.005-1.030) Urine Protein Trace H (Negative) Urine Glucose (UA) Negative (Negative) Urine Ketones Negative (Negative) Urine Occult Blood Negative (Negative) Urine Nitrite Negative (Negative) Urine Bilirubin Negative (Negative) Urine Urobilinogen 2.0 H (0.2-1.0) Ur Leukocyte Esterase Negative (Negative) Urine RBC 0-5 (0-5) /hpf Urine WBC 0-5 (0-5) /hpf Ur Epithelial Cells 0-5 (0-5) /hpf Urine Bacteria Few (FEW) /hpf Urine Mucus Not seen (FEW) /hpf Meds: Medications Discontinued Medications Generic Name Dose Route Start Last Admin Trade Name Freq PRN Reason Stop Dose Admin Lactated Ringer's 1,000 mls @ 150 mls/hr 12/29/20 04:45 12/29/20 05:26 Ringers, Lactated IV 150 mls/hr ASDIRECTED LEÓN Administration Sodium Chloride 10 ml 12/29/20 04:44 12/29/20 05:26 Sodium Chloride 0.9% 10 Ml Syringe FLUSH 10 ml ASDIRECTED PRN Administration Keep Vein Open Departure - Departure Time of Disposition: 09:46 Disposition: Home, W Home Health Agency 06 Clinical Impression: Metastatic melanoma - Discharge Information *PRESCRIPTION DRUG MONITORING PROGRAM REVIEWED*: No *COPY OF PRESCRIPTION DRUG MONITORING REPORT IN PATIENT TRUDY: Not Applicable Instructions: Hospice Sepsis Event Note (ED) - Focused Exam Vital Signs: Vital Signs Temp Pulse Resp BP Pulse Ox 12/29/20 09:45 37.3 C 88 16 95/76 97 - My Orders Last 24 Hours: My Active Orders 12/29/20 04:43 Peripheral IV Insertion Adult [OM.PC] Stat EKG 12 Lead [EK] Stat 12/29/20 04:44 Blood Culture x2 Reflex Set [OM.PC] Stat 12/29/20 05:05 BLOOD CULTURE [MREF] Stat 12/29/20 05:15 BLOOD CULTURE [MREF] Stat 12/29/20 06:25 Chest 1V Frontal [CR] Stat - Assessment/Plan Last 24 Hours: My Active Orders 12/29/20 04:43 Peripheral IV Insertion Adult [OM.PC] Stat EKG 12 Lead [EK] Stat 12/29/20 04:44 Blood Culture x2 Reflex Set [OM.PC] Stat 12/29/20 05:05 BLOOD CULTURE [MREF] Stat 12/29/20 05:15 BLOOD CULTURE [MREF] Stat 12/29/20 06:25 Chest 1V Frontal [CR] Stat
[2020-12-29 10:21] VITALS: BP 95/76; PULSE 88
--- NOTE | 2020-12-30 06:39 | CR ---
Chest: Portable view of the chest was obtained. Comparison: Prior chest x-ray of 12/24/20. Density within the right lung base is seen on previous study which has diminished on current exam. Findings have not yet completely resolved. Lungs otherwise are clear. Heart size and mediastinum are within normal limits. Bony structures show nothing acute. Minimal scoliosis is noted within the spine. Impression: 1. Improved density within the right lung base which has not yet completely resolved. 2. Nothing acute is otherwise seen. Diagnostic code #2
== END 2020-12-29 11:30 | disposition home health service (06) ==
LOC: JD.ED 04:33
DX: C79.9 Secondary malignant neoplasm of unspecified site (principal); R56.9 Unspecified convulsions; E03.9 Hypothyroidism, unspecified; Z88.8 Allergy status to other drugs, medicaments and biological substances; Z88.5 Allergy status to narcotic agent; Z79.899 Other long term (current) drug therapy
CPT/HCPCS: 36415; 71045; 80053; 81001; 82140; 83605; 84484; 85025; 87040; 93005; 99285; J7120; 93010; 99283

== ENCOUNTER 2020-12-29 20:00 | Inpatient (IN) | payer BC ==
--- NOTE | 2020-12-29 21:32 | EDM.PDOC ---
ED HPI GENERAL MEDICAL PROBLEM - General Chief Complaint: General Stated Complaint: [facility] Time Seen by Provider: 12/29/20 20:39 Source of Information: Reports: Family (Daughter) History Limitations: Reports: Altered Mental Status (patient non-conversant) - History of Present Illness INITIAL COMMENTS - FREE TEXT/NARRATIVE: Mrs. Molina is a very pleasant 60-year-old woman who is now brought to the ED by EMS due to increased weakness at home. 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 She was seen in the ED this morning after falling, but on evaluation in the ED, was confused, and denied having fallen. Work-up included a CBC, CMP, 2 lactic acid levels, an ammonia level, and a troponin level. Her lactic acid levels were mildly elevated, otherwise, her work-up was unremarkable. She was given 1 L of LR before being discharged home. The ED physician this morning spoke to the patient's , who confirmed that the patient had been accepted into hospice while placed into observation at this facility from 12/24/2020 through 12/25/2020, however, the patient's had declined it. When the patient was seen in the ED this morning, however, he agreed to the patient going into hospice. The patient's daughter confirms that hospice is scheduled to meet with the family this coming 01/01/2021 or 01/02/2021. The patient's daughter tells me that it took two people 45 minutes to get the patient to the restroom around 17:45 this evening. They feel that she is simply too much to remain at home at this time. The patient's daughter is requesting admission to the hospital. We are notified that EMS gave the patient Katiefran en route to the ED; it is unclear if the patient indicated to EMS that she was feeling nauseated. Here in the ED this evening, the patient is found to be hemodynamically stable, afebrile, saturating 96% on room air. She is staring off at the ceiling, sometimes smiling, sometimes appearing tearful, but not communicating. She does not appear to be in acute distress. According to the patient's daughter, the patient has not had or complained of a recent fever, chills, sore throat, ear pain, nasal or sinus congestion, cough, dyspnea, chest pain, palpitations, nausea, vomiting, constipation, diarrhea, abdominal pain, urinary symptoms, recent weight gain or weight loss, recent bloody bowel movements or black bowel movements, recent joint aches, headaches, or rashes. The patient's PCP is Dr. Adam Blackwell. Her Oncologist is Dr. Mohit Raza. Her Radiation Oncologist is Dr. Neptali Sanabria. 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: Reports: Other (see below) Other 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: iv lock nd zofran by ambulance - Related Data Allergies Allergy/AdvReac Type Severity Reaction Status Date / Time Akyfeld-Blg-Qsy Reductase Allergy Severe Other Verified 12/29/20 20:12 Inhibitor hydrocodone AdvReac Severe Nausea Verified 12/29/20 04:42 Home Meds: Home Meds Levothyroxine Sodium [Synthroid] 100 mcg PO DAILY 06/12/14 [History] Promethazine [Phenergan] 25 mg PO Q6H PRN #20 tab 11/07/20 [Rx] levETIRAcetam [Keppra] 500 mg PO BID 11/07/20 [History] Cefdinir [Omnicef] 300 mg PO BID #16 cap 12/25/20 [Rx] Desvenlafaxine [Desvenlafaxine ER] 50 mg PO DAILY 12/25/20 [History] lamoTRIgine [Lamotrigine] 25 mg PO BID 12/25/20 [History] lamoTRIgine [Lamotrigine] 50 mg PO BID 12/25/20 [History] dexAMETHasone [Dexamethasone] 6 mg PO DAILY #14 tablet 12/27/20 [Rx] Past Medical History HEENT History: Reports: Impaired Vision (wears glasses) Musculoskeletal History: Reports: Fracture Neurological History: Reports: Seizure (due to brain tumor) Psychiatric History: Reports: Anxiety, Depression Endocrine/Metabolic History: Reports: Hypothyroidism (Rosario's thyroiditis) Oncologic (Cancer) History: Reports: Malignant Melanoma (s/p RTx, immunotherapy) - Infectious Disease History Infectious Disease History: Reports: Chicken Pox Social & Family History - Tobacco Use Tobacco Use Status *Q: Never Tobacco User - Caffeine Use Caffeine Use: Reports: None - Alcohol Use Alcohol Use History: No - Recreational Drug Use Recreational Drug Use: No - Living Situation & Occupation Living situation: Reports: , with Spouse Occupation: Retired ED ROS GENERAL - Review of Systems Review Of Systems: Comprehensive ROS is negative, except as noted in HPI. ED EXAM, GENERAL - Physical Exam Exam: See Below Exam Limited By: No Limitations (patient cooperated with exam) General Appearance: Alert, WD/WN, No Apparent Distress Eye Exam: Bilateral Eye: EOMI, Normal Inspection Ears: Normal External Exam, Hearing Grossly Normal Nose: Normal Inspection Throat/Mouth: Normal Inspection, Normal Lips, No Airway Compromise Head: Atraumatic, Normocephalic Neck: Normal Inspection, Full Range of Motion Respiratory/Chest: No Respiratory Distress, Lungs Clear, Normal Breath Sounds, No Accessory Muscle Use Cardiovascular: Normal Peripheral Pulses, Regular Rate, Rhythm, No Edema, No Gallop, No JVD, No Murmur, No Rub Peripheral Pulses: 3+: Radial (L), Radial (R) GI/Abdominal: Normal Bowel Sounds, Soft, Non-Tender, No Organomegaly, No Distention, No Abnormal Bruit, No Mass Back Exam: Normal Inspection, Full Range of Motion, NT Extremities: Normal Inspection, Normal Range of Motion, No Pedal Edema, Normal Capillary Refill Neurological: Alert, No Motor/Sensory Deficits Skin Exam: Warm, Dry, Intact, Normal Color, No Rash Course - Vital Signs Last Recorded V/S: Last Vital Signs Temp 37.2 C 12/29/20 20:05 Pulse 87 12/29/20 20:05 Resp 20 12/29/20 20:05 BP 122/74 12/29/20 20:05 Pulse Ox 96 12/29/20 20:05 - Orders/Labs/Meds Labs: Laboratory Tests 12/29/20 12/29/20 Range/Units 22:00 23:10 Urine Color Light yellow (Yellow) Urine Appearance Clear (Clear) Urine pH 7.0 (5.0-8.0) Ur Specific [place] 1.015 (1.005-1.030) Urine Protein Negative (Negative) Urine Glucose (UA) Negative (Negative) Urine Ketones Negative (Negative) Urine Occult Blood Negative (Negative) Urine Nitrite Negative (Negative) Urine Bilirubin Negative (Negative) Urine Urobilinogen 0.2 (0.2-1.0) Ur Leukocyte Esterase Negative (Negative) Urine RBC 0-5 (0-5) /hpf Urine WBC 0-5 (0-5) /hpf Ur Squamous Epith Cells 0-5 (0-5) /hpf Urine Bacteria Moderate H (FEW) /hpf Urine Mucus Not seen (FEW) /hpf SARS-CoV-2 RNA (EYAD) Negative (NEGATIVE) - Re-Assessments/Exams Free Text/Narrative Re-Assessment/Exam: 12/29/20 21:27 As above, the patient was seen in this ED this morning after falling at home. She was found to be confused. A work-up was grossly unremarkable, and she was discharged home with the plan to be started on hospice. She is now returned to the ED due to increased weakness. Her daughter states that it took them 45 minutes to get her to the bathroom tonight, and that they can simply cannot physically take care of her at home. The patient would not be switched to hospice until this coming Thursday or Thursday, and the daughter was hoping that we could keep the patient here until that time. Her physical exam is grossly unremarkable. I have ordered a urinalysis and a swab for the SARS-CoV-2 virus, but I do not see a need to repeat the blood work from this morning. The above was discussed with Pepper MOSS, who confirms that we do have beds available. 12/29/20 23:46 The patient's urinalysis is remarkable for moderate bacteria, but is otherwise unremarkable. Her swab for the SARS-CoV-2 virus is negative. 12/29/20 23:[address] Blackwell at 23:47. He accepted the patient for placement into observation. He will call the floor to give orders. Departure - Departure Time of Disposition: 23:51 Disposition: Refer to Observation Condition: Fair Clinical Impression: Generalized weakness, Confusion - Discharge Information *PRESCRIPTION DRUG MONITORING PROGRAM REVIEWED*: Not Applicable *COPY OF PRESCRIPTION DRUG MONITORING REPORT IN PATIENT TRUDY: Not Applicable Referrals: Adam Colón MD [Physician] - Mohit Raza MD [Ordering Only Provider] - Neptali Sanabria MD [Ordering Only Provider] - Forms: ED Department Discharge Sepsis Event Note (ED) - Focused Exam Vital Signs: Vital Signs Temp Pulse Resp BP Pulse Ox 12/29/20 20:05 37.2 C 87 20 122/74 96
[2020-12-30] MEDS ORDERED: Promethazine 25 MG Tab PO PRN (01:09)
[2020-12-30] MEDS ORDERED: Morphine 2 MG/ML SYRINGE IVPUSH PRN (01:13)
[2020-12-30] MEDS ORDERED: Ondansetron 4 MG/2 ML SDV IVPUSH PRN (01:13)
[2020-12-30] MEDS ORDERED: Acetaminophen 325 MG Tab PO PRN (01:14)
[2020-12-30] MEDS ORDERED: LORazepam 2 MG/ML SDV IVPUSH PRN (01:14)
[2020-12-30] MEDS: Levothyroxine 100 MCG Tab PO SCH (05:38)
[2020-12-30] MEDS ORDERED: Sodium Chloride 0.9% 10 ML Syringe FLUSH PRN (05:50)
[2020-12-30] MEDS: Cefdinir 300 MG Cap PO SCH ×2 (08:01→21:06)
[2020-12-30] MEDS: levETIRAcetam 500 MG Tab PO SCH ×2 (08:02→21:06)
[2020-12-30] MEDS: lamoTRIgine 100 MG Tab PO SCH ×2 (08:02→21:06)
[2020-12-30] MEDS: Dexamethasone 4 MG Tab PO SCH (08:03)
--- NOTE | 2020-12-30 16:03 | PCM.HP.2 ---
H&P History of Present Illness - General Date of Service: 12/30/20 Admit Problem/Dx: Admission Diagnosis/Problem Admission Diagnosis/Problem Weakness - History of Present Illness Initial Comments - Free Text/Narative: 60-year-old female with metastatic malignant melanoma presented to the emergency department late last night with increasing weakness. Patient was admitted for observation to this facility on December 24 and hospice was consulted. Patient was sent home with home health pending hospice consult on Thursday after the holiday, but unfortunately she became more weak and return to the emergency department yesterday morning. Patient was sent home with her yesterday morning just returned again last night. Patient had a thorough work-up without any significant findings and was hemodynamically stable, afebrile with saturations of 96% on room air. There is been no change from her baseline except for weakness. It was felt the patient should be admitted for over the weekend secondary to failure to thrive, weakness, end-stage metastatic cancer and discharged home on Thursday with hospice. She is on cefdinir for diagnosis of pneumonia. UA is consistent with asymptomatic bacteriuria. PCP: Dr. Adam Blackwell Oncologist: Dr. Mohit Raza Neurologist: Dr. Desai - Related Data Allergies/Adverse Reactions: Allergies Allergy/AdvReac Type Severity Reaction Status Date / Time [id number]-Vdq Reductase Allergy Severe Other Verified 12/29/20 20:12 Inhibitor hydrocodone AdvReac Severe Nausea Verified 12/29/20 04:42 Home Medications: Home Meds Levothyroxine Sodium [Synthroid] 100 mcg PO DAILY 06/12/14 [History] Promethazine [Phenergan] 25 mg PO Q6H PRN #20 tab 11/07/20 [Rx] levETIRAcetam [Keppra] 500 mg PO BID 11/07/20 [History] Cefdinir [Omnicef] 300 mg PO BID #16 cap 12/25/20 [Rx] Desvenlafaxine [Desvenlafaxine ER] 50 mg PO DAILY 12/25/20 [History] lamoTRIgine [Lamotrigine] 50 mg PO BID 12/25/20 [History] dexAMETHasone [Dexamethasone] 6 mg PO DAILY #14 tablet 12/27/20 [Rx] Past Medical History HEENT History: Reports: Impaired Vision Other HEENT History: wears glasses-not here Respiratory History: Reports: Pneumonia, Recurrent Musculoskeletal History: Reports: Fracture Neurological History: Reports: Seizure Other Neuro History: brain tumor- dec 2019 with cancer. Psychiatric History: Reports: Anxiety, Depression Endocrine/Metabolic History: Reports: Hypothyroidism Other Endocrine/Metabolic History: Hashimotos Oncologic (Cancer) History: Reports: Brain, Malignant Melanoma - Infectious Disease History Infectious Disease History: Reports: Chicken Pox - Past Surgical History Neurological Surgical History: Reports: Other (See Below) Other Neurological Surgeries/Procedures: raditation of brain tumor Social & Family History - Family History Family Medical History: No Pertinent Family History - Tobacco Use Tobacco Use Status *Q: Never Tobacco User Second Hand Smoke Exposure: No - Caffeine Use Caffeine Use: Reports: None - Recreational Drug Use Recreational Drug Use: No - Living Situation & Occupation Living situation: Reports: , with Spouse Occupation: Retired H&P Review of Systems - Review of Systems: Review Of Systems: Comprehensive ROS is negative, except as noted in HPI. Exam - Exam Exam: See Below - Vital Signs Vital Signs: Last Vital Signs Temp 100.4 F 12/30/20 00:56 Pulse 85 12/30/20 00:56 Resp 18 12/30/20 00:56 BP 93/47 L 12/30/20 01:52 Pulse Ox 97 12/30/20 00:56 Weight: 130 lb 4.8 oz - Exam Quality Assessment: No: Supplemental Oxygen General: Alert, Oriented HEENT: Conjunctiva Clear, Mucosa Moist & [place] Neck: Supple Lungs: Clear to Auscultation, Normal Respiratory Effort Cardiovascular: Regular Rate, Regular Rhythm GI/Abdominal Exam: Normal Bowel Sounds, Soft, Non-Tender Extremities: Normal Inspection, No Pedal Edema Skin: Warm, Dry, Intact Neuro Extensive - Mental Status: Alert Psychiatric: Alert, Normal Affect, Normal Mood - Patient Data Lab Results Last 24 hrs: Laboratory Results - last 24 hr 12/29/20 12/29/20 Range/Units 22:00 23:10 Urine Color Light yellow (Yellow) Urine Appearance Clear (Clear) Urine pH 7.0 (5.0-8.0) Ur Specific [place] 1.015 (1.005-1.030) Urine Protein Negative (Negative) Urine Glucose (UA) Negative (Negative) Urine Ketones Negative (Negative) Urine Occult Blood Negative (Negative) Urine Nitrite Negative (Negative) Urine Bilirubin Negative (Negative) Urine Urobilinogen 0.2 (0.2-1.0) Ur Leukocyte Esterase Negative (Negative) Urine RBC 0-5 (0-5) /hpf Urine WBC 0-5 (0-5) /hpf Ur Squamous Epith Cells 0-5 (0-5) /hpf Urine Bacteria Moderate H (FEW) /hpf Urine Mucus Not seen (FEW) /hpf SARS-CoV-2 RNA (EYAD) Negative (NEGATIVE) Sepsis Event Note - Evaluation Sepsis Screening Result: No Definite Risk - Problem List (1) Generalized weakness SNOMED Code(s): 29112734 ICD Code: R53.1 - WEAKNESS Status: Acute Priority: High Current Visit: Yes (2) 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 SNOMED Code(s): 171821659, 018241928 ICD Code: C79.31 - SECONDARY MALIGNANT NEOPLASM OF BRAIN Status: Acute Priority: High Current Visit: No (3) History of seizures SNOMED Code(s): 002519035 ICD Code: Z87.898 - PERSONAL HISTORY OF OTHER SPECIFIED CONDITIONS Status: Chronic Priority: Medium Current Visit: No (4) Hypothyroidism SNOMED Code(s): 28333491 ICD Code: E03.9 - HYPOTHYROIDISM, UNSPECIFIED Status: Chronic Priority: Low Current Visit: No Qualifiers: 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 Qualified Code(s): E03.8 - Other specified hypothyroidism; E06.3 - Autoimmune thyroiditis (5) Liver metastases Status: Chronic Priority: High Current Visit: No (6) Lung metastases SNOMED Code(s): 75807765 ICD Code: C78.00 - SECONDARY MALIGNANT NEOPLASM OF UNSPECIFIED LUNG Status: Chronic Priority: High Current Visit: No Qualifiers: Laterality: unspecified laterality Qualified Code(s): C78.00 - Secondary malignant neoplasm of unspecified lung Problem List Initiated/Reviewed/Updated: Yes Orders Last 24hrs: Active Orders 24 hr Category Date Time Status Admission Status [Patient Status] [ADT] Routine ADT 12/30/20 00:03 Active Aspiration Precautions [RC] BID Care 12/30/20 01:15 Active Up With Assistance [RC] BID Care 12/30/20 05:50 Active Regular Diet [DIET] Diet 12/30/20 Breakfast Active Acetaminophen [TylenoL] Med 12/30/20 01:14 Active 650 mg PO Q4H PRN Cefdinir [Omnicef] Med 12/30/20 09:00 Active 300 mg PO BID Desvenlafaxine [Desvenlafaxine ER] Med 12/30/20 09:00 Pending 50 mg PO DAILY LORazepam [Ativan] Med 12/30/20 01:14 Active 0.5 mg IVPUSH Q4H PRN Levothyroxine [Synthroid] Med 12/30/20 06:00 Active 100 mcg PO ACBRK Morphine Med 12/30/20 01:13 Active 2 mg IVPUSH Q2H PRN Ondansetron [Zofran] Med 12/30/20 01:13 Active 4 mg IVPUSH Q4HR PRN Promethazine [Phenergan] Med 12/30/20 01:09 Active 25 mg PO Q6H PRN Sodium Chloride 0.9% [Saline Flush] Med 12/30/20 05:50 Active 10 ml FLUSH ASDIRECTED PRN dexAMETHasone Med 12/30/20 09:00 Active 6 mg PO DAILY lamoTRIgine Med 12/30/20 09:00 Active 50 mg PO BID lamoTRIgine Med 01/03/21 09:00 Active 75 mg PO BID levETIRAcetam [Keppra] Med 12/30/20 09:00 Active 500 mg PO BID Code Status [Resuscitation Status] Routine Resus Stat 12/30/20 01:02 Ordered Medication Orders Acetaminophen (Acetaminophen 325 Mg Tab) 650 mg PO Q4H PRN PRN Reason: Pain Cefdinir (Cefdinir 300 Mg Cap) 300 mg PO BID [facility] Stop: 01/06/21 21:01 Last Admin: 12/30/20 08:01 Dose: 300 mg Documented by: [id number] Dexamethasone (Dexamethasone 4 Mg Tab) 6 mg PO DAILY [facility] Last Admin: 12/30/20 08:03 Dose: 6 mg Documented by: [id number] Lamotrigine (Lamotrigine 25 Mg Tab.Chew) 75 mg PO BID [facility] Lamotrigine (Lamotrigine 100 Mg Tab) 50 mg PO BID [facility] Stop: 01/02/21 21:01 Last Admin: 12/30/20 08:02 Dose: 50 mg Documented by: [id number] Levetiracetam (Levetiracetam 500 Mg Tab) 500 mg PO BID [facility] Last Admin: 12/30/20 08:02 Dose: 500 mg Documented by: [id number] Levothyroxine Sodium (Levothyroxine 100 Mcg Tab) 100 mcg PO ACBRK [facility] Last Admin: 12/30/20 05:38 Dose: 100 mcg Documented by: [email or web address] Lorazepam (Lorazepam 2 Mg/Ml Sdv) 0.5 mg IVPUSH Q4H PRN PRN Reason: Anxiety Morphine Sulfate (Morphine 2 Mg/Ml Syringe) 2 mg IVPUSH Q2H PRN PRN Reason: Pain Non-Formulary Medication (Desvenlafaxine [Desvenlafaxine Er]) 50 mg PO DAILY LEÓN Ondansetron HCl (Ondansetron 4 Mg/2 Ml Sdv) 4 mg IVPUSH Q4HR PRN PRN Reason: Nausea/Vomiting Promethazine HCl (Promethazine 25 Mg Tab) 25 mg PO Q6H PRN PRN Reason: Nausea Sodium Chloride (Sodium Chloride 0.9% 10 Ml Syringe) 10 ml FLUSH ASDIRECTED PRN PRN Reason: Keep Vein Open Assessment/Plan Comment:: 60-year-old with metastatic melanoma admitted to the hospital with increasing failure to thrive, weakness. * Admit to floor for comfort measures per . * Continue home meds. * Limit amount of investigational studies. * Plan to discharge on Thursday, 2 days, to home with hospice consult. * Pain and anxiety medications as needed to keep comfortable. History of pneumonia * Continue on cefdinir Past medical history includes seizures, anxiety, depression, hypothyroidism, Rosario's thyroiditis, malignant melanoma with metastasis to the brain CODE STATUS: DNR/DNI/comfort measures - Mortality Measure Prognosis:: Poor
[2020-12-31] MEDS: Levothyroxine 100 MCG Tab PO SCH (06:25)
[2020-12-31] MEDS: levETIRAcetam 500 MG Tab PO SCH ×2 (08:36→20:04)
[2020-12-31] MEDS: Cefdinir 300 MG Cap PO SCH ×2 (08:37→20:03)
[2020-12-31] MEDS: Dexamethasone 4 MG Tab PO SCH (08:37)
[2020-12-31] MEDS: lamoTRIgine 100 MG Tab PO SCH ×2 (08:37→20:04)
[2020-12-31] MEDS ORDERED: LORazepam 0.5 MG Tab PO PRN (13:59)
--- NOTE | 2020-12-31 14:28 | PCM.PN ---
- General Info Date of Service: 12/31/20 Admission Dx/Problem (Free Text): Admission Diagnosis/Problem Admission Diagnosis/Problem Weakness Subjective Update: Patient denies any pain. She does continue to have depression and anxiety in regards to her condition. Son was sitting with her. Dr. Schmitz did see her this morning and recommended Ativan which they would like to do. Functional Status: Reports: Pain Controlled - Review of Systems General: Reports: Weakness, Fatigue HEENT: Reports: No Symptoms Pulmonary: Reports: No Symptoms Cardiovascular: Reports: No Symptoms - Patient Data Vitals - Most Recent: Last Vital Signs Temp 97.7 F 12/31/20 09:49 Pulse 79 12/31/20 09:49 Resp 16 12/31/20 09:49 BP 94/54 L 12/31/20 09:49 Pulse Ox 100 12/31/20 09:49 Weight - Most Recent: 130 lb 4.8 oz Med Orders - Current: Current Medications Acetaminophen (Acetaminophen 325 Mg Tab) 650 mg PO Q4H PRN PRN Reason: Pain Cefdinir (Cefdinir 300 Mg Cap) 300 mg PO BID [facility] Stop: 01/06/21 21:01 Last Admin: 12/31/20 08:37 Dose: 300 mg Documented by: Dexamethasone (Dexamethasone 4 Mg Tab) 6 mg PO DAILY [facility] Last Admin: 12/31/20 08:37 Dose: 6 mg Documented by: Lamotrigine (Lamotrigine 25 Mg Tab.Chew) 75 mg PO BID [facility] Lamotrigine (Lamotrigine 100 Mg Tab) 50 mg PO BID [facility] Stop: 01/02/21 21:01 Last Admin: 12/31/20 08:37 Dose: 50 mg Documented by: Levetiracetam (Levetiracetam 500 Mg Tab) 500 mg PO BID [facility] Last Admin: 12/31/20 08:36 Dose: 500 mg Documented by: Levothyroxine Sodium (Levothyroxine 100 Mcg Tab) 100 mcg PO ACBRK [facility] Last Admin: 12/31/20 06:25 Dose: 100 mcg Documented by: Lorazepam (Lorazepam 0.5 Mg Tab) 0.5 mg PO Q4H PRN PRN Reason: Anxiety Non-Formulary Medication (Desvenlafaxine [Desvenlafaxine Er]) 50 mg PO DAILY [facility] Promethazine HCl (Promethazine 25 Mg Tab) 25 mg PO Q6H PRN PRN Reason: Nausea Discontinued Medications Lorazepam (Lorazepam 2 Mg/Ml Sdv) 0.5 mg IVPUSH Q4H PRN PRN Reason: Anxiety Morphine Sulfate (Morphine 2 Mg/Ml Syringe) 2 mg IVPUSH Q2H PRN PRN Reason: Pain Ondansetron HCl (Ondansetron 4 Mg/2 Ml Sdv) 4 mg IVPUSH Q4HR PRN PRN Reason: Nausea/Vomiting Sodium Chloride (Sodium Chloride 0.9% 10 Ml Syringe) 10 ml FLUSH ASDIRECTED PRN PRN Reason: Keep Vein Open - Exam General: Alert, Oriented HEENT: Pupils Equal, Mucous Membr. Moist/[place] Neck: Supple Lungs: Clear to Auscultation, Normal Respiratory Effort Cardiovascular: Regular Rate, Regular Rhythm GI/Abdominal Exam: Normal Bowel Sounds, Soft, Non-Tender, No Distention Extremities: Normal Inspection, Normal Range of Motion, Non-Tender, No Pedal Edema Skin: Warm, Dry, Intact Psy/Mental Status: Alert, Normal Affect, Normal Mood Sepsis Event Note - Evaluation Sepsis Screening Result: No Definite Risk - Focused Exam Vital Signs: Vital Signs Temp Pulse Resp BP Pulse Ox 12/31/20 09:49 97.7 F 79 16 94/54 L 100 - Problem List & Annotations (1) Generalized weakness SNOMED Code(s): 94404602 Code(s): R53.1 - WEAKNESS Status: Acute Priority: High Current Visit: Yes (2) 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 SNOMED Code(s): 230620593, 934936131 Code(s): C79.31 - SECONDARY MALIGNANT NEOPLASM OF BRAIN Status: Acute Priority: High Current Visit: No (3) History of seizures SNOMED Code(s): 590113003 Code(s): Z87.898 - PERSONAL HISTORY OF OTHER SPECIFIED CONDITIONS Status: Chronic Priority: Medium Current Visit: No (4) Hypothyroidism SNOMED Code(s): 76269908 Code(s): E03.9 - HYPOTHYROIDISM, UNSPECIFIED Status: Chronic Priority: Low Current Visit: No Qualifiers: 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 Qualified Code(s): E03.8 - Other specified hypothyroidism; E06.3 - Autoimmune thyroiditis (5) Liver metastases Status: Chronic Priority: High Current Visit: No (6) Lung metastases SNOMED Code(s): 37780252 Code(s): C78.00 - SECONDARY MALIGNANT NEOPLASM OF UNSPECIFIED LUNG Status: Chronic Priority: High Current Visit: No Qualifiers: Laterality: unspecified laterality Qualified Code(s): C78.00 - Secondary malignant neoplasm of unspecified lung - Problem List Review Problem List Initiated/Reviewed/Updated: Yes - My Orders Last 24 Hours: My Active Orders 12/31/20 08:56 Vital Signs [RC] ASDIRECTED - Plan Plan:: 60-year-old with metastatic melanoma admitted to the hospital with increasing failure to thrive, weakness. Anxiety is mildly worse today. * Continue home meds. * Limit amount of investigational studies. * Plan to discharge on Thursday, 2 days, to home with hospice consult. * Pain and anxiety medications as needed to keep comfortable. * DC IV History of pneumonia * Continue on cefdinir Past medical history includes seizures, anxiety, depression, hypothyroidism, Rosario's thyroiditis, malignant melanoma with metastasis to the brain CODE STATUS: DNR/DNI/comfort measures
[2021-01-01] MEDS: Levothyroxine 100 MCG Tab PO SCH (05:52)
--- NOTE | 2021-01-01 08:38 | PCM.PN ---
- General Info Date of Service: 01/01/21 Admission Dx/Problem (Free Text): Admission Diagnosis/Problem Admission Diagnosis/Problem Weakness Functional Status: Reports: Pain Controlled, Tolerating Diet (for the most part ), Ambulating, Urinating. Denies: New Symptoms - Review of Systems General: Reports: Weakness, Fatigue, Malaise. Denies: Fever, Chills HEENT: Reports: No Symptoms. Denies: Headaches, Sore Throat Pulmonary: Reports: No Symptoms. Denies: Shortness of Breath, Cough, Sputum, Wheezing Cardiovascular: Reports: No Symptoms. Denies: Chest Pain, Palpitations, Dyspnea on Exertion, Edema Gastrointestinal: Reports: Decreased Appetite. Denies: Abdominal Pain, Constipation, Diarrhea, Nausea, Vomiting Genitourinary: Reports: No Symptoms. Denies: Pain Musculoskeletal: Reports: No Symptoms Skin: Reports: No Symptoms. Denies: Cyanosis Neurological: Reports: No Symptoms, Confusion, Difficulty Walking, Weakness, Gait Disturbance. Denies: Dizziness, Headache, Numbness, Paresthesia, Seizure, Syncope, Tingling, Tremors, Trouble Speaking, Change in Speech Psychiatric: Reports: No Symptoms - Patient Data Vitals - Most Recent: Last Vital Signs Temp 97.5 F 12/31/20 19:55 Pulse 81 12/31/20 19:55 Resp 16 12/31/20 19:55 BP 112/72 12/31/20 19:55 Pulse Ox 100 12/31/20 19:55 Weight - Most Recent: 130 lb 4.8 oz Med Orders - Current: Current Medications Acetaminophen (Acetaminophen 325 Mg Tab) 650 mg PO Q4H PRN PRN Reason: Pain Cefdinir (Cefdinir 300 Mg Cap) 300 mg PO BID [facility] Stop: 01/06/21 21:01 Last Admin: 12/31/20 20:03 Dose: 300 mg Documented by: Dexamethasone (Dexamethasone 4 Mg Tab) 6 mg PO DAILY [facility] Last Admin: 12/31/20 08:37 Dose: 6 mg Documented by: Lamotrigine (Lamotrigine 25 Mg Tab.Chew) 75 mg PO BID [facility] Lamotrigine (Lamotrigine 100 Mg Tab) 50 mg PO BID [facility] Stop: 01/02/21 21:01 Last Admin: 12/31/20 20:04 Dose: 50 mg Documented by: Levetiracetam (Levetiracetam 500 Mg Tab) 500 mg PO BID [facility] Last Admin: 12/31/20 20:04 Dose: 500 mg Documented by: Levothyroxine Sodium (Levothyroxine 100 Mcg Tab) 100 mcg PO ACBRK [facility] Last Admin: 01/01/21 05:52 Dose: 100 mcg Documented by: Lorazepam (Lorazepam 0.5 Mg Tab) 0.5 mg PO Q4H PRN PRN Reason: Anxiety Desvenlafaxine [ Desvenlafaxine Er] 50 Mg Tab.Er.24h 0 each PO DAILY [facility] Promethazine HCl (Promethazine 25 Mg Tab) 25 mg PO Q6H PRN PRN Reason: Nausea Discontinued Medications Lorazepam (Lorazepam 2 Mg/Ml Sdv) 0.5 mg IVPUSH Q4H PRN PRN Reason: Anxiety Morphine Sulfate (Morphine 2 Mg/Ml Syringe) 2 mg IVPUSH Q2H PRN PRN Reason: Pain Ondansetron HCl (Ondansetron 4 Mg/2 Ml Sdv) 4 mg IVPUSH Q4HR PRN PRN Reason: Nausea/Vomiting Sodium Chloride (Sodium Chloride 0.9% 10 Ml Syringe) 10 ml FLUSH ASDIRECTED PRN PRN Reason: Keep Vein Open - Exam Quality Assessment: No: Supplemental Oxygen, Urine Catheter, DVT Prophylaxis (comfort care ) General: Alert, Cooperative, No Acute Distress. No: Oriented HEENT: Pupils Equal, Pupils Reactive, Mucous Membr. Moist/[place] Neck: Supple, Trachea Midline Lungs: Clear to Auscultation, Normal Respiratory Effort Cardiovascular: Regular Rate, Regular Rhythm GI/Abdominal Exam: Normal Bowel Sounds, Soft, Non-Tender, No Distention (Female) Exam: Deferred Back Exam: Normal Inspection, Full Range of Motion Extremities: Normal Inspection, Normal Range of Motion, Non-Tender, No Pedal Edema, Normal Capillary Refill Peripheral Pulses: 4+: Radial (L), Radial (R), Dorsalis Pedis (L), Dorsalis Pedis (R) Skin: Warm, Dry, Intact Neurological: No New Focal Deficit Psy/Mental Status: Alert, Anxious, Depressed Sepsis Event Note - Evaluation Sepsis Screening Result: No Definite Risk - Problem List & Annotations (1) Confusion SNOMED Code(s): 943069158 Code(s): R41.0 - DISORIENTATION, UNSPECIFIED Status: Chronic Priority: High Current Visit: Yes (2) Generalized weakness SNOMED Code(s): 58005938 Code(s): R53.1 - WEAKNESS Status: Acute Priority: High Current Visit: Yes (3) Anxiety SNOMED Code(s): 16059162 Code(s): F41.9 - ANXIETY DISORDER, UNSPECIFIED Status: Acute Priority: High Current Visit: Yes (4) 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 SNOMED Code(s): 953611171, 515649392 Code(s): C79.31 - SECONDARY MALIGNANT NEOPLASM OF BRAIN Status: Chronic Priority: High Current Visit: Yes (5) Metastatic melanoma SNOMED Code(s): 433418468 Code(s): C79.9 - SECONDARY MALIGNANT NEOPLASM OF UNSPECIFIED SITE Status: Chronic Priority: High Current Visit: Yes (6) Depression SNOMED Code(s): 41128796 Code(s): F32.9 - MAJOR DEPRESSIVE DISORDER, SINGLE EPISODE, UNSPECIFIED Status: Chronic Priority: Medium Current Visit: Yes Qualifiers: Depression Type: other depression Qualified Code(s): F32.89 - Other specified depressive episodes (7) H/O Rosario thyroiditis SNOMED Code(s): 470583516 Code(s): Z86.39 - PERSONAL HISTORY OF ENDO, NUTRITIONAL AND METABOLIC DISEASE Status: Chronic Priority: Low Current Visit: No (8) History of seizures SNOMED Code(s): 859770624 Code(s): Z87.898 - PERSONAL HISTORY OF OTHER SPECIFIED CONDITIONS Status: Chronic Priority: Medium Current Visit: No (9) Hypothyroidism SNOMED Code(s): 83775912 Code(s): E03.9 - HYPOTHYROIDISM, UNSPECIFIED Status: Chronic Priority: Low Current Visit: No Qualifiers: 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 Qualified Code(s): E03.8 - Other specified hypothyroidism; E06.3 - Autoimmune thyroiditis (10) Liver metastases Status: Chronic Priority: High Current Visit: Yes (11) Lung metastases SNOMED Code(s): 55472425 Code(s): C78.00 - SECONDARY MALIGNANT NEOPLASM OF UNSPECIFIED LUNG Status: Chronic Priority: High Current Visit: Yes Qualifiers: Laterality: unspecified laterality Qualified Code(s): C78.00 - Secondary malignant neoplasm of unspecified lung (12) Failure to thrive SNOMED Code(s): 15175123 Code(s): FXQ6547 - Status: Acute Priority: High Current Visit: Yes Qualifiers: Failure to thrive age range: in adult Qualified Code(s): R62.7 - Adult failure to thrive (13) Pneumonia SNOMED Code(s): 722713279 Code(s): J18.9 - PNEUMONIA, UNSPECIFIED ORGANISM Status: Chronic Priority: High Current Visit: No Qualifiers: Pneumonia type: due to unspecified organism Laterality: right Lung location: lower lobe of lung Qualified Code(s): J18.9 - Pneumonia, unspecified organism - Problem List Review Problem List Initiated/Reviewed/Updated: Yes - My Orders Last 24 Hours: My Active Orders 01/01/21 07:01 Consult to Case Management/Event Promoter [CONS] Routine - Assessment Assessment:: 01/01/2021 This is a 60-year-old female with malignant melanoma to the brain, liver, and lungs who presented to ED on 12/29/2020 with significant generalized weakness. Patient had been hospitalized from 12/24/2020 through 12/27/2020 for weakness and was found to have pneumonia. She was noted to be confused, which waxed and waned and quite tearful during her hospitalization. She was started on Omnicef at discharge. Hospice was discussed but ultimately the family refused. She was discharged on home health PT/OT services. She went home and returned on 12/29/2020 after a fall and difficulty getting up. She was discharged home and the plan was for hospice at discharge. She reportedly returned later that evening after patient's family noted she was too difficult for them to take care of. In the ED UA was checked and showed moderate bacteria, consistent with asymptomatic bacteria but no signs of any infection. She was admitted to the OB unit as MedSurg overflow. She is on comfort care. Many of her home medications have been continued. We are continuing Omnicef for her pneumonia. She remains confused and quite weak. Social work is consulted and they are looking into hospice. She will be discharged once plans are made for an appro priate and safe discharge. In the room she remains quite tearful. She has been eating occasionally. She remains confused. Family is at bedside. She denies any pain. reports only placed for bedroom for will be upstairs. We will add PT to assist with training family and strengthening. 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 Liver metastases Lung metastases Confusion Generalized weakness Failure to thrive * Continue 6mg dexamethasone * Fall precautions * Hospice consultation * SW/CM consultation * Aspiration precautions * Spiritual care consultation * Consult PT as patient has stairs in house Pneumonia * Continue cefdinir PO from last admission History of seizures * Continue home keppra * Continue home lamotrigine Anxiety Depression * No current home medications * Continue Q4Hr 0.5mg Ativan for anxiety * Monitor Hypothyroidism H/O Rosario thyroiditis * Continue home levothyroxine Code status: DNR/DNI/Comfort care PCP: Dr. Blackwell Radiation oncologist: Dr. Sanabria Oncologist: Dr. Raza Neurologist: Dr. Desai DVT prophylaxis: Not indicated for comfort care Social: Patient resides with Disposition: Patient admitted observation status for failure to thrive. Will increase to inpatient today. Plan will be discharge home with hospice once all required preparations are made. Likely discharge in 1 to 2 days.
[2021-01-01] MEDS: Cefdinir 300 MG Cap PO SCH ×2 (08:47→20:36)
[2021-01-01] MEDS: levETIRAcetam 500 MG Tab PO SCH ×2 (08:47→20:37)
[2021-01-01] MEDS: lamoTRIgine 100 MG Tab PO SCH ×2 (08:48→20:37)
[2021-01-01] MEDS: Dexamethasone 4 MG Tab PO SCH (08:49)
[2021-01-01] MEDS: Desvenlafaxine [Desvenlafaxine Er] 50 MG Tab.Er.24h PO SCH (08:51)
[2021-01-02] MEDS: Levothyroxine 100 MCG Tab PO SCH (06:30)
--- NOTE | 2021-01-02 07:06 | PCM.PN ---
- General Info Date of Service: 01/02/21 Admission Dx/Problem (Free Text): Admission Diagnosis/Problem Admission Diagnosis/Problem Weakness Functional Status: Reports: Pain Controlled, Tolerating Diet, Ambulating, Urinating. Denies: New Symptoms - Review of Systems General: Reports: No Symptoms, Weakness, Fatigue. Denies: Fever, Malaise, Chills HEENT: Reports: No Symptoms. Denies: Headaches, Sore Throat Pulmonary: Reports: No Symptoms. Denies: Shortness of Breath, Pleuritic Chest Pain, Cough, Sputum, Wheezing Cardiovascular: Reports: No Symptoms. Denies: Chest Pain, Palpitations, Dyspnea on Exertion, Edema Gastrointestinal: Reports: No Symptoms. Denies: Abdominal Pain, Constipation, Diarrhea, Nausea, Vomiting Genitourinary: Reports: No Symptoms. Denies: Pain Musculoskeletal: Reports: No Symptoms Skin: Reports: No Symptoms. Denies: Cyanosis Neurological: Reports: No Symptoms, Confusion, Difficulty Walking, Weakness, Gait Disturbance. Denies: Dizziness, Headache, Numbness, Paresthesia, Seizure, Syncope, Tingling, Tremors, Trouble Speaking, Change in Speech Psychiatric: Reports: No Symptoms - Patient Data Vitals - Most Recent: Last Vital Signs Temp 97.9 F 01/01/21 20:35 Pulse 68 01/01/21 20:35 Resp 14 01/01/21 20:35 BP 128/96 H 01/01/21 20:35 Pulse Ox 95 01/01/21 20:35 Weight - Most Recent: 130 lb 4.8 oz Med Orders - Current: Current Medications Acetaminophen (Acetaminophen 325 Mg Tab) 650 mg PO Q4H PRN PRN Reason: Pain Cefdinir (Cefdinir 300 Mg Cap) 300 mg PO BID [facility] Stop: 01/03/21 09:01 Last Admin: 01/01/21 20:36 Dose: 300 mg Documented by: Dexamethasone (Dexamethasone 4 Mg Tab) 6 mg PO DAILY [facility] Last Admin: 01/01/21 08:49 Dose: 6 mg Documented by: Lamotrigine (Lamotrigine 25 Mg Tab.Chew) 75 mg PO BID [facility] Lamotrigine (Lamotrigine 100 Mg Tab) 50 mg PO BID [facility] Stop: 01/02/21 21:01 Last Admin: 01/01/21 20:37 Dose: 50 mg Documented by: Levetiracetam (Levetiracetam 500 Mg Tab) 500 mg PO BID [facility] Last Admin: 01/01/21 20:37 Dose: 500 mg Documented by: Levothyroxine Sodium (Levothyroxine 100 Mcg Tab) 100 mcg PO ACBRK [facility] Last Admin: 01/02/21 06:30 Dose: 100 mcg Documented by: Lorazepam (Lorazepam 0.5 Mg Tab) 0.5 mg PO Q4H PRN PRN Reason: Anxiety Desvenlafaxine [ Desvenlafaxine Er] 50 Mg Tab.Er.24h 0 each PO DAILY [facility] Last Admin: 01/01/21 08:51 Dose: 1 each Documented by: Promethazine HCl (Promethazine 25 Mg Tab) 25 mg PO Q6H PRN PRN Reason: Nausea Discontinued Medications Lorazepam (Lorazepam 2 Mg/Ml Sdv) 0.5 mg IVPUSH Q4H PRN PRN Reason: Anxiety Morphine Sulfate (Morphine 2 Mg/Ml Syringe) 2 mg IVPUSH Q2H PRN PRN Reason: Pain Ondansetron HCl (Ondansetron 4 Mg/2 Ml Sdv) 4 mg IVPUSH Q4HR PRN PRN Reason: Nausea/Vomiting Sodium Chloride (Sodium Chloride 0.9% 10 Ml Syringe) 10 ml FLUSH ASDIRECTED PRN PRN Reason: Keep Vein Open - Exam Quality Assessment: No: Supplemental Oxygen, Urine Catheter, DVT Prophylaxis (Comfort cares) General: Alert, Cooperative, No Acute Distress. No: Oriented HEENT: Pupils Equal, Pupils Reactive, Mucous Membr. Moist/[place] Neck: Supple, Trachea Midline Lungs: Clear to Auscultation, Normal Respiratory Effort Cardiovascular: Regular Rate, Regular Rhythm GI/Abdominal Exam: Normal Bowel Sounds, Soft, Non-Tender, No Distention Back Exam: Normal Inspection, Full Range of Motion Extremities: Normal Inspection, Normal Range of Motion, Non-Tender, No Pedal Edema, Normal Capillary Refill Peripheral Pulses: 3+: Radial (L), Radial (R), Dorsalis Pedis (L), Dorsalis Pedis (R) Skin: Warm, Dry, Intact Neurological: No New Focal Deficit Psy/Mental Status: Alert, Anxious, Depressed Sepsis Event Note - Evaluation Sepsis Screening Result: No Definite Risk - Focused Exam Vital Signs: Vital Signs Temp Pulse Resp BP Pulse Ox 01/01/21 20:35 97.9 F 68 14 128/96 H 95 - Problem List & Annotations (1) Confusion SNOMED Code(s): 189097926 Code(s): R41.0 - DISORIENTATION, UNSPECIFIED Status: Chronic Priority: High Current Visit: Yes (2) Generalized weakness SNOMED Code(s): 15904996 Code(s): R53.1 - WEAKNESS Status: Acute Priority: High Current Visit: Yes (3) Anxiety SNOMED Code(s): 91102354 Code(s): F41.9 - ANXIETY DISORDER, UNSPECIFIED Status: Acute Priority: High Current Visit: Yes (4) 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 SNOMED Code(s): 647901242, 528279990 Code(s): C79.31 - SECONDARY MALIGNANT NEOPLASM OF BRAIN Status: Chronic Priority: High Current Visit: Yes (5) Metastatic melanoma SNOMED Code(s): 045920147 Code(s): C79.9 - SECONDARY MALIGNANT NEOPLASM OF UNSPECIFIED SITE Status: Chronic Priority: High Current Visit: Yes (6) Depression SNOMED Code(s): 82490913 Code(s): F32.9 - MAJOR DEPRESSIVE DISORDER, SINGLE EPISODE, UNSPECIFIED Status: Chronic Priority: Medium Current Visit: Yes Qualifiers: Depression Type: other depression Qualified Code(s): F32.89 - Other specified depressive episodes (7) H/O Rosario thyroiditis SNOMED Code(s): 390447825 Code(s): Z86.39 - PERSONAL HISTORY OF ENDO, NUTRITIONAL AND METABOLIC DISEASE Status: Chronic Priority: Low Current Visit: No (8) History of seizures SNOMED Code(s): 525481837 Code(s): Z87.898 - PERSONAL HISTORY OF OTHER SPECIFIED CONDITIONS Status: Chronic Priority: Medium Current Visit: No (9) Hypothyroidism SNOMED Code(s): 30416010 Code(s): E03.9 - HYPOTHYROIDISM, UNSPECIFIED Status: Chronic Priority: Low Current Visit: No Qualifiers: 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 Qualified Code(s): E03.8 - Other specified hypothyroidism; E06.3 - Autoimmune thyroiditis (10) Liver metastases Status: Chronic Priority: High Current Visit: Yes (11) Lung metastases SNOMED Code(s): 16922742 Code(s): C78.00 - SECONDARY MALIGNANT NEOPLASM OF UNSPECIFIED LUNG Status: Chronic Priority: High Current Visit: Yes Qualifiers: Laterality: unspecified laterality Qualified Code(s): C78.00 - Secondary malignant neoplasm of unspecified lung (12) Failure to thrive SNOMED Code(s): 78474868 Code(s): EQA4162 - Status: Acute Priority: High Current Visit: Yes Qualifiers: Failure to thrive age range: in adult Qualified Code(s): R62.7 - Adult failure to thrive (13) Pneumonia SNOMED Code(s): 053075612 Code(s): J18.9 - PNEUMONIA, UNSPECIFIED ORGANISM Status: Chronic Priority: High Current Visit: No Qualifiers: Pneumonia type: due to unspecified organism Laterality: right Lung location: lower lobe of lung Qualified Code(s): J18.9 - Pneumonia, unspecified organism - Problem List Review Problem List Initiated/Reviewed/Updated: Yes - My Orders Last 24 Hours: My Active Orders 01/01/21 07:01 Consult to Case Management/[employer] [CONS] Routine 01/01/21 10:10 Patient Status [ADT] Routine 01/01/21 11:20 Consult to Physical Therapy [PT Evaluation and Treatment] [CONS] Routine - Assessment Assessment:: 01/01/2021 This is a 60-year-old female with malignant melanoma to the brain, liver, and lungs who presented to ED on 12/29/2020 with significant generalized weakness. Patient had been hospitalized from 12/24/2020 through 12/27/2020 for weakness and was found to have pneumonia. She was noted to be confused, which waxed and waned and quite tearful during her hospitalization. She was started on Omnicef at discharge. Hospice was discussed but ultimately the family refused. She was discharged on home health PT/OT services. She went home and returned on 12/29/2020 after a fall and difficulty getting up. She was discharged home and the plan was for hospice at discharge. She reportedly returned later that evening after patient's family noted she was too difficult for them to take care of. In the ED UA was checked and showed moderate bacteria, consistent with asymptomatic bacteria but no signs of any infection. She was admitted to the OB unit as MedSurg overflow. She is on comfort care. Many of her home medications have been continued. We are continuing Omnicef for her pneumonia. She remains confused and quite weak. Social work is consulted and they are looking into hospice. She will be discharged once plans are made for an appropriate and safe discharge. In the room she remains quite tearful. She has been eating occasionally. She remains confused. Family is at bedside. She denies any pain. reports only placed for bedroom for will be upstairs. We will add PT to assist with training family and strengthening. 01/02/2021 60-year-old female admitted to the hospital for weakness secondary to malignant melanoma to her brain, liver, and lungs. Plan is for hospice care at discharge. She remains on comfort cares here. She states occasional dizziness and headaches but is having no pain or other symptoms currently. She has been weak. PT was consulted at the patient has steps going into her house and they did evaluate the patient. They are recommending a home safety evaluation. No labs were obtained today. She continues Omnicef for her prior pneumonia. Likely discharge tomorrow on hospice cares. 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 Liver metastases Lung metastases Confusion Generalized weakness Failure to thrive * Continue 6mg dexamethasone * Fall precautions * Hospice consultation * SW/CM consultation * Aspiration precautions * Spiritual care consultation * Consult PT as patient has stairs in house Pneumonia * Continue cefdinir PO from last admission History of seizures * Continue home keppra * Continue home lamotrigine Anxiety Depression * No current home medications * Continue Q4Hr 0.5mg Ativan for anxiety * Monitor Hypothyroidism H/O Rosario thyroiditis * Continue home levothyroxine Code status: DNR/DNI/Comfort care PCP: Dr. Blackwell Radiation oncologist: Dr. Sanabria Oncologist: Dr. Raza Neurologist: Dr. Desai DVT prophylaxis: Not indicated for comfort care Social: Patient resides with Disposition: Patient admitted observation status for failure to thrive. Will increase to inpatient today. Plan will be discharge home with hospice once all required preparations are made. Likely discharge home tomorrow to Hospice care.
[2021-01-02] MEDS: Cefdinir 300 MG Cap PO SCH ×2 (09:13→20:19)
[2021-01-02] MEDS: lamoTRIgine 100 MG Tab PO SCH ×2 (09:13→20:22)
[2021-01-02] MEDS: levETIRAcetam 500 MG Tab PO SCH ×2 (09:13→20:19)
[2021-01-02] MEDS: Desvenlafaxine [Desvenlafaxine Er] 50 MG Tab.Er.24h PO SCH (09:14)
[2021-01-02] MEDS: Dexamethasone 4 MG Tab PO SCH (09:14)
[2021-01-02 20:37] VITALS: BP 110/66; PULSE 70
[2021-01-03] MEDS: Levothyroxine 100 MCG Tab PO SCH (06:20)
[2021-01-03] MEDS: Cefdinir 300 MG Cap PO SCH (09:00)
[2021-01-03] MEDS: Dexamethasone 4 MG Tab PO SCH (09:00)
[2021-01-03] MEDS: levETIRAcetam 500 MG Tab PO SCH (09:01)
[2021-01-03] MEDS: Desvenlafaxine [Desvenlafaxine Er] 50 MG Tab.Er.24h PO SCH (09:02)
--- NOTE | 2021-01-03 11:42 | PCM.DCSUM1 ---
Discharge Summary - Hospital Course Free Text/Narrative:: 60-year-old female with metastatic malignant melanoma presented to the emergency department late last night with increasing weakness. Patient was admitted for observation to this facility on December 24 and hospice was consulted. Patient was sent home with home health pending hospice consult on Thursday after the holiday, but unfortunately she became more weak and return to the emergency department yester morning. Patient was sent home with her yester morning just returned again last night. Patient had a thorough work-up without any significant findings and was hemodynamically stable, afebrile with saturations of 96% on room air. There is been no change from her baseline except for weakness. It was felt the patient should be admitted for over the weekend secondary to failure to thrive, weakness, end-stage metastatic cancer and discharged home on Thursday with hospice. She is on cefdinir for diagnosis of pneumonia. UA is consistent with asymptomatic bacteriuria. PCP: Dr. Adam Blackwell Oncologist: Dr. Mohit Raza Neurologist: Dr. Desai Diagnosis: Stroke: No - Discharge Data Discharge Date: 01/03/21 Discharge Disposition: DC/Tfer to Hospice - Home 50 Condition: Good - Referral to Home Health Primary Care Physician: PCP None - Discharge Diagnosis/Problem(s) (1) Anxiety SNOMED Code(s): 37705443 ICD Code: F41.9 - ANXIETY DISORDER, UNSPECIFIED Status: Acute Priority: High Current Visit: Yes (2) Failure to thrive SNOMED Code(s): 61812077 ICD Code: [id number] - Status: Acute Priority: High Current Visit: Yes Qualifiers: Failure to thrive age range: in adult Qualified Code(s): R62.7 - Adult failure to thrive (3) Generalized weakness SNOMED Code(s): 60214626 ICD Code: R53.1 - WEAKNESS Status: Acute Priority: High Current Visit: Yes (4) Confusion SNOMED Code(s): 764093643 ICD Code: R41.0 - DISORIENTATION, UNSPECIFIED Status: Chronic Priority: High Current Visit: Yes (5) Depression SNOMED Code(s): 60296224 ICD Code: F32.9 - MAJOR DEPRESSIVE DISORDER, SINGLE EPISODE, UNSPECIFIED Status: Chronic Priority: Medium Current Visit: Yes Qualifiers: Depression Type: other depression Qualified Code(s): F32.89 - Other specified depressive episodes (6) Liver metastases Status: Chronic Priority: High Current Visit: Yes (7) Lung metastases SNOMED Code(s): 59155376 ICD Code: C78.00 - SECONDARY MALIGNANT NEOPLASM OF UNSPECIFIED LUNG Status: Chronic Priority: High Current Visit: Yes Qualifiers: Laterality: unspecified laterality Qualified Code(s): C78.00 - Secondary malignant neoplasm of unspecified lung (8) 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 SNOMED Code(s): 274091946, 585155572 ICD Code: C79.31 - SECONDARY MALIGNANT NEOPLASM OF BRAIN Status: Chronic Priority: High Current Visit: Yes (9) Metastatic melanoma SNOMED Code(s): 826755112 ICD Code: C79.9 - SECONDARY MALIGNANT NEOPLASM OF UNSPECIFIED SITE Status: Chronic Priority: High Current Visit: Yes - Patient Summary/Data Consults: Consultations 01/01/21 07:01 Consult to Case Management/[facility] [CONS] Routine 01/01/21 11:20 Consult to Physical Therapy [PT Evaluation and Treatment] [CONS] Routine Hospital Course: 12/30/2020 60-year-old with metastatic melanoma admitted to the hospital with increasing failure to thrive, weakness. * Admit to floor for comfort measures per . * Continue home meds. * Limit amount of investigational studies. * Plan to discharge on Thursday, 2 days, to home with hospice consult. * Pain and anxiety medications as needed to keep comfortable. History of pneumonia * Continue on cefdinir Past medical history includes seizures, anxiety, depression, hypothyroidism, Rosario's thyroiditis, malignant melanoma with metastasis to the brain CODE STATUS: DNR/DNI/comfort measures 12/31/2020 60-year-old with metastatic melanoma admitted to the hospital with increasing failure to thrive, weakness. Anxiety is mildly worse today. * Continue home meds. * Limit amount of investigational studies. * Plan to discharge on Thursday, 2 days, to home with hospice consult. * Pain and anxiety medications as needed to keep comfortable. * DC IV History of pneumonia * Continue on cefdinir Past medical history includes seizures, anxiety, depression, hypothyroidism, Rosario's thyroiditis, malignant melanoma with metastasis to the brain CODE STATUS: DNR/DNI/comfort measures 01/01/2021 This is a 60-year-old female with malignant melanoma to the brain, liver, and lungs who presented to ED on 12/29/2020 with significant generalized weakness. Patient had been hospitalized from 12/24/2020 through 12/27/2020 for weakness and was found to have pneumonia. She was noted to be confused, which waxed and waned and quite tearful during her hospitalization. She was started on Omnicef at discharge. Hospice was discussed but ultimately the family refused. She was discharged on home health PT/OT services. She went home and returned on 12/29/2020 after a fall and difficulty getting up. She was discharged home and the plan was for hospice at discharge. She reportedly returned later that evening after patient's family noted she was too difficult for them to take care of. In the ED UA was checked and showed moderate bacteria, consistent with asymptomatic bacteria but no signs of any infection. She was admitted to the OB unit as MedSurg overflow. She is on comfort care. Many of her home medications have been continued. We are continuing Omnicef for her pneumonia. She remains confused and quite weak. Social work is consulted and they are looking into hospice. She will be discharged once plans are made for an appropriate and safe discharge. In the room she remains quite tearful. She has been eating occasionally. She remains confused. Family is at bedside. She denies any pain. reports only placed for bedroom for will be upstairs. We will add PT to assist with training family and strengthening. 01/02/2021 60-year-old female admitted to the hospital for weakness secondary to malignant melanoma to her brain, liver, and lungs. Plan is for hospice care at discharge. She remains on comfort cares here. She states occasional dizziness and headaches but is having no pain or other symptoms currently. She has been weak. PT was consulted at the patient has steps going into her house and they did evaluate the patient. They are recommending a home safety evaluation. No labs were obtained today. She continues Omnicef for her prior pneumonia. Likely discharge tomorrow on hospice cares. 01/03/2021 60-year-old female who presented to the emergency department 4 days ago with a history of malignant melanoma to her brain, liver and lungs. She presented with complaints of weakness. Currently on comfort cares. Voices no complaints during my assessment today on rounds. She states that she feels as though she is ready to be discharged home. She will be discharged on hospice. Home safety eval will be completed. She will have Ativan 0.5 mg every 4 hours as needed for anxiety. - Patient Instructions Diet: Usual Diet as Tolerated Activity: As Tolerated Other/Special Instructions: Home with hospice care. Home safety eval. Home physical therapy. Ativan 0.5mg by mouth every 4 hours as needed for anxiety - Discharge Plan *PRESCRIPTION DRUG MONITORING PROGRAM REVIEWED*: Not Applicable *COPY OF PRESCRIPTION DRUG MONITORING REPORT IN PATIENT TRUDY: Not Applicable Prescriptions/Med Rec: LORazepam [Ativan] 0.5 mg PO Q4H PRN #20 tablet PRN Reason: Anxiety Home Medications: Home Meds Levothyroxine Sodium [Synthroid] 100 mcg PO DAILY 06/12/14 [History] Promethazine [Phenergan] 25 mg PO Q6H PRN #20 tab 11/07/20 [Rx] levETIRAcetam [Keppra] 500 mg PO BID 11/07/20 [History] Cefdinir [Omnicef] 300 mg PO BID #16 cap 12/25/20 [Rx] Desvenlafaxine [Desvenlafaxine ER] 50 mg PO DAILY 12/25/20 [History] lamoTRIgine [Lamotrigine] 50 mg PO BID 12/25/20 [History] dexAMETHasone [Dexamethasone] 6 mg PO DAILY #14 tablet 12/27/20 [Rx] LORazepam [Ativan] 0.5 mg PO Q4H PRN #20 tablet 01/03/21 [Rx] Oxygen Therapy Mode: Room Air Forms: ED Department Discharge Referrals: Mohit Raza MD [Ordering Only Provider] - (Follow up as you choose) Adam Coe MD [Physician] - (please call and schedule an appointment with Dr. Coe just NEEDED.) Neptali Sanabria MD [Ordering Only Provider] - (Follow up as you choose) - Discharge Summary/Plan Comment DC Time >30 min.: No Total # of Minutes for Discharge Time: 25 - General Info Date of Service: 01/03/21 Admission Dx/Problem (Free Text: Admission Diagnosis/Problem Admission Diagnosis/Problem Weakness Functional Status: Reports: Pain Controlled, Tolerating Diet, Ambulating, Urinating - Review of Systems General: Reports: No Symptoms HEENT: Reports: Headaches (Complains of an occasional headache) Pulmonary: Reports: No Symptoms Cardiovascular: Reports: No Symptoms Gastrointestinal: Reports: No Symptoms Genitourinary: Reports: No Symptoms Musculoskeletal: Reports: No Symptoms Skin: Reports: No Symptoms Neurological: Reports: Confusion (To remittent), Headache (Occasional) Psychiatric: Reports: Anxiety, Other (Crying intermittently) - Patient Data Vitals - Most Recent: Last Vital Signs Temp 98.8 F 01/02/21 20:19 Pulse 70 01/02/21 20:19 Resp 16 01/02/21 20:19 BP 110/66 01/02/21 20:19 Pulse Ox 95 01/02/21 20:19 Weight - Most Recent: 130 lb 4.8 oz I&O - Last 24 hours: Intake & Output 01/02/21 01/03/21 01/03/21 22:59 06:59 14:59 Intake Total 120 Balance 120 Med Orders - Current: Current Medications Acetaminophen (Acetaminophen 325 Mg Tab) 650 mg PO Q4H PRN PRN Reason: Pain Dexamethasone (Dexamethasone 4 Mg Tab) 6 mg PO DAILY [facility] Last Admin: 01/03/21 09:00 Dose: 6 mg Documented by: Lamotrigine (Lamotrigine 25 Mg Tab.Chew) 75 mg PO BID [facility] Last Admin: 01/03/21 08:58 Dose: 75 mg Documented by: Levetiracetam (Levetiracetam 500 Mg Tab) 500 mg PO BID [facility] Last Admin: 01/03/21 09:01 Dose: 500 mg Documented by: Levothyroxine Sodium (Levothyroxine 100 Mcg Tab) 100 mcg PO ACBRK [facility] Last Admin: 01/03/21 06:20 Dose: 100 mcg Documented by: Lorazepam (Lorazepam 0.5 Mg Tab) 0.5 mg PO Q4H PRN PRN Reason: Anxiety Desvenlafaxine [ Desvenlafaxine Er] 50 Mg Tab.Er.24h 0 each PO DAILY [facility] Last Admin: 01/03/21 09:02 Dose: 1 each Documented by: Promethazine HCl (Promethazine 25 Mg Tab) 25 mg PO Q6H PRN PRN Reason: Nausea Discontinued Medications Cefdinir (Cefdinir 300 Mg Cap) 300 mg PO BID [facility] Stop: 01/03/21 09:01 Last Admin: 01/03/21 09:00 Dose: 300 mg Documented by: Lamotrigine (Lamotrigine 100 Mg Tab) 50 mg PO BID LEÓN Stop: 01/02/21 21:01 Last Admin: 01/02/21 20:22 Dose: 50 mg Documented by: Lorazepam (Lorazepam 2 Mg/Ml Sdv) 0.5 mg IVPUSH Q4H PRN PRN Reason: Anxiety Morphine Sulfate (Morphine 2 Mg/Ml Syringe) 2 mg IVPUSH Q2H PRN PRN Reason: Pain Ondansetron HCl (Ondansetron 4 Mg/2 Ml Sdv) 4 mg IVPUSH Q4HR PRN PRN Reason: Nausea/Vomiting Sodium Chloride (Sodium Chloride 0.9% 10 Ml Syringe) 10 ml FLUSH ASDIRECTED PRN PRN Reason: Keep Vein Open - Exam General: Reports: Alert, Oriented, Cooperative, No Acute Distress HEENT: Reports: Pupils Equal, Mucous Membr. Moist/[place] Neck: Reports: Supple, Trachea Midline Lungs: Reports: Clear to Auscultation, Normal Respiratory Effort Cardiovascular: Reports: Regular Rate, Regular Rhythm, No Murmurs GI/Abdominal Exam: Normal Bowel Sounds, Soft, Non-Tender, No Distention (Female) Exam: Deferred Rectal (Female) Exam: Deferred Back Exam: Reports: Normal Inspection Extremities: Normal Inspection Skin: Reports: Warm, Dry, Intact Wound/Incisions: Reports: Healing Well Neurological: Reports: No New Focal Deficit Psy/Mental Status: Reports: Alert, Normal Affect, Normal Mood
== END 2021-01-03 11:20 | disposition hospice, home (50) | DRG 421 ==
LOC: JD.ED 20:00 → JD.MS 12-30 00:03 → JD.OB 12-31 21:49 → OBSVTOIN 01-01 10:10
PROVIDERS: ADMIT Pediatrics; ATTEND Pediatrics
DX: R62.7 Adult failure to thrive (principal); R53.1 Weakness; F32.89 Other specified depressive episodes; C79.31 Secondary malignant neoplasm of brain; C78.7 Secondary malignant neoplasm of liver and intrahepatic bile duct; Z66 Do not resuscitate; Z51.5 Encounter for palliative care; E03.9 Hypothyroidism, unspecified; H54.7 Unspecified visual loss; Z20.822 Contact with and (suspected) exposure to COVID-19; E06.3 Autoimmune thyroiditis; C78.01 Secondary malignant neoplasm of right lung; C78.02 Secondary malignant neoplasm of left lung; C43.9 Malignant melanoma of skin, unspecified; J18.9 Pneumonia, unspecified organism; Z88.5 Allergy status to narcotic agent; Z79.890 Hormone replacement therapy; Z79.899 Other long term (current) drug therapy
CPT/HCPCS: 81001; 97110-GP; 97163-GP; 97530-GP; 99219; 99225; 99233; 99238; 99284; 99285; A9270-GY; G0378; J8540; U0002

== ENCOUNTER 2021-01-14 05:31 | Emergency (ER) | payer BC ==
[2021-01-14 05:45] VITALS: BP 97/69; PULSE 111
[2021-01-14] MEDS ORDERED: Sodium Chloride 0.9% 10 ML Syringe FLUSH PRN (05:58)
--- NOTE | 2021-01-14 06:26 | EDM.PDOC ---
ED HPI GENERAL MEDICAL PROBLEM - General Chief Complaint: General Stated Complaint: [facility] Time Seen by Provider: 01/14/21 05:34 Source of Information: Reports: Patient, EMS History Limitations: Reports: No Limitations - History of Present Illness INITIAL COMMENTS - FREE TEXT/NARRATIVE: The patient presents by [facility] for a fall. The patient has melano ma with mets to the brain, spleen and liver. She is currently in hospice at home. She is more confused and off balance. This morning she fell again. She denies any pain. She has no fever, chills, cough, chest pain, abdominal pain, nausea or vomiting. She has no arm or leg pain. Onset: Gradual Duration: Week(s): Severity: Moderate Improves with: Reports: None Worsens with: Reports: None Associated Symptoms: Reports: Confusion. Denies: Chest Pain, Cough, Fever/Chills, Headaches, Nausea/Vomiting, Shortness of Breath - Related Data Allergies Allergy/AdvReac Type Severity Reaction Status Date / Time Idemtmx-Jri-Yat Reductase Allergy Unknown Other Verified 01/14/21 05:45 Inhibitor hydrocodone AdvReac Mild Nausea Verified 01/14/21 05:45 Home Meds: Home Meds Levothyroxine Sodium [Synthroid] 100 mcg PO DAILY 06/12/14 [History] Promethazine [Phenergan] 25 mg PO Q6H PRN #20 tab 11/07/20 [Rx] levETIRAcetam [Keppra] 500 mg PO BID 11/07/20 [History] Cefdinir [Omnicef] 300 mg PO BID #16 cap 12/25/20 [Rx] Desvenlafaxine [Desvenlafaxine ER] 50 mg PO DAILY 12/25/20 [History] lamoTRIgine [Lamotrigine] 50 mg PO BID 12/25/20 [History] dexAMETHasone [Dexamethasone] 6 mg PO DAILY #14 tablet 12/27/20 [Rx] LORazepam [Ativan] 0.5 mg PO Q4H PRN #20 tablet 01/03/21 [Rx] Past Medical History HEENT History: Reports: Impaired Vision Other HEENT History: wears glasses-not here Respiratory History: Reports: Pneumonia, Recurrent Musculoskeletal History: Reports: Fracture Neurological History: Reports: Seizure Other Neuro History: brain tumor- dec 2019 with cancer. Psychiatric History: Reports: Anxiety, Depression Endocrine/Metabolic History: Reports: Hypothyroidism Other Endocrine/Metabolic History: Hashimotos Oncologic (Cancer) History: Reports: Brain, Malignant Melanoma - Infectious Disease History Infectious Disease History: Reports: Chicken Pox - Past Surgical History Neurological Surgical History: Reports: Other (See Below) Other Neurological Surgeries/Procedures: raditation of brain tumor Social & Family History - Family History Family Medical History: No Pertinent Family History - Tobacco Use Tobacco Use Status *Q: Never Tobacco User - Caffeine Use Caffeine Use: Reports: None - Living Situation & Occupation Living situation: Reports: , with Spouse Occupation: Retired ED ROS GENERAL - Review of Systems Review Of Systems: See Below Constitutional: Reports: No Symptoms HEENT: Reports: No Symptoms Respiratory: Reports: No Symptoms Cardiovascular: Reports: No Symptoms Endocrine: Reports: No Symptoms GI/Abdominal: Reports: No Symptoms : Reports: No Symptoms Musculoskeletal: Reports: No Symptoms Skin: Reports: No Symptoms Neurological: Reports: No Symptoms ED EXAM, GENERAL - Physical Exam Exam: See Below Exam Limited By: No Limitations General Appearance: Alert, No Apparent Distress Ears: Normal External Exam Nose: Normal Inspection Head: Atraumatic, Normocephalic Neck: Normal Inspection Respiratory/Chest: No Respiratory Distress, Lungs Clear, Normal Breath Sounds Cardiovascular: Regular Rate, Rhythm, No Edema, No Murmur GI/Abdominal: Soft, Non-Tender, No Organomegaly, No Mass Back Exam: Normal Inspection Extremities: Normal Inspection Course - Vital Signs Last Recorded V/S: Last Vital Signs Temp 98.1 F 01/14/21 05:43 Pulse 111 H 01/14/21 05:43 Resp 18 01/14/21 05:43 BP 97/69 01/14/21 05:43 Pulse Ox 97 01/14/21 05:43 - Orders/Labs/Meds Orders: Active Orders 24 hr Category Date Time Status Cardiac Monitoring [RC] . DIRECTED Care 01/14/21 05:59 Active Peripheral IV Care [RC] . DIRECTED Care 01/14/21 05:59 Active Head wo Cont [CT] Stat Exams 01/14/21 05:58 Taken CBC WITH AUTO DIFF [HEME] Stat Lab 01/14/21 06:22 Results CORONAVIRUS COVID-19 EYAD [MOLEC] Stat Lab 01/14/21 07:32 Received Sodium Chloride 0.9% [Saline Flush] Med 01/14/21 05:58 Active 10 ml FLUSH ASDIRECTED PRN Peripheral IV Insertion Adult [OM.PC] Routine Oth 01/14/21 05:58 Ordered Medication Orders Sodium Chloride (Sodium Chloride 0.9% 10 Ml Syringe) 10 ml FLUSH ASDIRECTED PRN PRN Reason: Keep Vein Open Labs: Laboratory Tests 01/14/21 01/14/21 Range/Units 06:22 06:22 WBC 14.79 H (3.98-10.04) K/mm3 RBC 3.63 L (3.98-5.22) M/mm3 Hgb 10.8 L (11.2-15.7) gm/dl Hct 34.2 (34.1-44.9) % MCV 94.2 (79.4-94.8) fl MCH 29.8 (25.6-32.2) pg MCHC 31.6 L (32.2-35.5) g/dl RDW Std Deviation 51.9 H (36.4-46.3) fL Plt Count 304 (182-369) K/mm3 MPV 10.2 (9.4-12.3) fl Neut % (Auto) 83.2 H (34.0-71.1) % Lymph % (Auto) 2.7 L (19.3-51.7) % Tompkins % (Auto) 9.0 (4.7-12.5) % Eos % (Auto) 0.1 L (0.7-5.8) Baso % (Auto) 0.1 (0.1-1.2) % Neut # (Auto) 12.30 H (1.56-6.13) K/mm3 Lymph # (Auto) 0.40 L (1.18-3.74) K/mm3 Tompkins # (Auto) 1.33 H (0.24-0.36) K/mm3 Eos # (Auto) 0.02 L (0.04-0.36) K/mm3 Baso # (Auto) 0.01 (0.01-0.08) K/mm3 Sodium 135 L (136-145) mEq/L Potassium 3.9 (3.5-5.1) mEq/L Chloride 99 (98-107) mEq/L Carbon Dioxide 22 (21-32) mEq/L Anion Gap 17.9 H (5-15) BUN 17 (7-18) mg/dL Creatinine 0.7 (0.55-1.02) mg/dL Est Cr Clr Drug Dosing TNP Estimated GFR (MDRD) > 60 (>60) mL/min BUN/Creatinine Ratio 24.3 H (14-18) Glucose 129 H (70-99) mg/dL Calcium 8.9 (8.5-10.1) mg/dL Total Bilirubin 1.4 H (0.2-1.0) mg/dL AST 308 H (15-37) U/L ALT 397 H (14-59) U/L Alkaline Phosphatase 1028 H (46-116) U/L Total Protein 5.9 L (6.4-8.2) g/dl Albumin 2.3 L (3.4-5.0) g/dl Globulin 3.6 gm/dL Albumin/Globulin Ratio 0.6 L (1-2) Meds: Medications Generic Name Dose Route Start Last Admin Trade Name Freq PRN Reason Stop Dose Admin Sodium Chloride 10 ml 01/14/21 05:58 Sodium Chloride 0.9% 10 Ml Syringe FLUSH ASDIRECTED PRN Keep Vein Open - Re-Assessments/Exams Free Text/Narrative Re-Assessment/Exam: 01/14/21 06:26 I ordered an IV saline lock, CT of her head and labs. 01/14/21 08:08 Her WBC was elevated at 14.79. Her hgb was low at 10.8. Her Na was low at 135. Her anion gap was elevated at 17.9. Her glucose was elevated at 129. AST was elevated at 397. Her Alk phos was elevated at 1028. Her CT shows postoperative changes. Multiple new hyperattenuating lesions which are felt to likely represent interval cerebral metastatic disease. Short interval follow-up or MRI recommended for further evaluation due to history of trauma. Her is here and he has a hospice nurse 24 hours now and a wheel chair. Departure - Departure Time of Disposition: 08:15 Disposition: Home, Self-Care 01 Condition: Good Clinical Impression: Liver metastases, Metastatic melanoma, 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 Fall Qualifiers: Encounter type: initial encounter Qualified Code(s): W19.XXXA - Unspecified fall, initial encounter Lung metastases Qualifiers: Laterality: unspecified laterality Qualified Code(s): C78.00 - Secondary malignant neoplasm of unspecified lung - Discharge Information *PRESCRIPTION DRUG MONITORING PROGRAM REVIEWED*: Not Applicable *COPY OF PRESCRIPTION DRUG MONITORING REPORT IN PATIENT TRUDY: Not Applicable Referrals: PCP,None [Primary Care Provider] - Forms: ED Department Discharge Additional Instructions: Drink plenty of fluids. Follow up with your provider. Please return if you are worse. Sepsis Event Note (ED) - Evaluation Sepsis Screening Result: No Definite Risk - Focused Exam Vital Signs: Vital Signs Temp Pulse Resp BP Pulse Ox 01/14/21 05:43 98.1 F 111 H 18 97/69 97 - My Orders Last 24 Hours: My Active Orders 01/14/21 05:58 Head wo Cont [CT] Stat Sodium Chloride 0.9% [Saline Flush] 10 ml FLUSH ASDIRECTED PRN Peripheral IV Insertion Adult [OM.PC] Routine 01/14/21 05:59 Cardiac Monitoring [RC] . DIRECTED Peripheral IV Care [RC] . DIRECTED 01/14/21 06:22 CBC WITH AUTO DIFF [HEME] Stat 01/14/21 07:32 CORONAVIRUS COVID-19 EYAD [MOLEC] Stat - Assessment/Plan Last 24 Hours: My Active Orders 01/14/21 05:58 Head wo Cont [CT] Stat Sodium Chloride 0.9% [Saline Flush] 10 ml FLUSH ASDIRECTED PRN Peripheral IV Insertion Adult [OM.PC] Routine 01/14/21 05:59 Cardiac Monitoring [RC] . DIRECTED Peripheral IV Care [RC] . DIRECTED 01/14/21 06:22 CBC WITH AUTO DIFF [HEME] Stat 01/14/21 07:32 CORONAVIRUS COVID-19 EYAD [MOLEC] Stat
--- NOTE | 2021-01-14 08:36 | CT ---
Head CT Technique: Multiple axial sections through the brain were obtained. Intravenous contrast was not utilized. Reconstructed coronal and sagittal images were obtained. Comparison: Prior head CT studies of 12/24/20 and 06/12/14. MRI brain study of 06/12/14 is also available. Findings: Ventricles are mildly dilated which show ex vacuole enlargement on the right side. Low density is noted within the right occipital lobe and right parietal lobe which appear to be fairly stable from most recent CT study presumably due to prior surgery. There is evidence of craniotomy defect in this area. Hypodense area is seen within the left thalamus next to the third ventricle which measures 1.9 cm in size which is stable from prior head CT study. Areas of increased density are noted within the right frontal region which measures 1.4 cm. This is increased from prior exam. Second area of increased density is noted within the left parietal region next to midline measuring 1.2 cm. Larger area of enhancement is seen within the posterior left parietal region which measures on the parasagittal images 3.0 cm which is also slightly increased in size. Additional increased density is noted within the medial right temporal region measuring 0.6 cm which is an interval change. Scattered areas of vasogenic edema are felt to be present. No definite acute parenchymal hemorrhage is seen. No midline shift or mass-effect is seen. Bone window settings were reviewed which show no acute calvarial abnormality. Visualized paranasal sinuses and mastoid sinuses show nothing acute. Prior craniotomy is noted on the right side. Impression: 1. Multiple areas of increasing and new areas of increased density within both sides of the brain which are felt compatible with worsening metastatic disease from most recent head CT study of 12/24/20. 2. Stable changes in area of previous craniotomy on the right side compatible with prior postoperative change. Stable low density area within the left thalamus next to the third ventricle. 3. No acute intracranial abnormality is otherwise seen. Diagnostic code #9 I agree with preliminary report from [facility], finalized on 01/14/21, 8:37 AM CDT, code 1
== END 2021-01-14 08:48 | disposition home or self-care (01) ==
LOC: JD.ED 05:31
DX: C78.7 Secondary malignant neoplasm of liver and intrahepatic bile duct (principal); C79.31 Secondary malignant neoplasm of brain; C78.00 Secondary malignant neoplasm of unspecified lung; R74.01 Elevation of levels of liver transaminase levels; D72.829 Elevated white blood cell count, unspecified; R56.9 Unspecified convulsions; E03.9 Hypothyroidism, unspecified; Z88.6 Allergy status to analgesic agent; Z88.5 Allergy status to narcotic agent; Z79.899 Other long term (current) drug therapy; Z20.822 Contact with and (suspected) exposure to COVID-19; W19.XXXA Unspecified fall, initial encounter
CPT/HCPCS: 36415; 70450; 70450-26; 80053; 85025; 99284; 99284-25; U0002